=== PATIENT | male | born 1955 | race Caucasian/White ===

== ENCOUNTER 2022-08-02 11:26 | Emergency (ER) | payer MEDICARE, OTHER ==
[2022-08-02] MEDS ORDERED: SODIUM CHLORIDE 0.9% 1,000 ML IV STA (12:12)
--- NOTE | 2022-08-02 12:14 | ED Physician Documentation ---
History of Present Illness - Stated complaint Stated Complaint: BLADDER PX - Chief complaint Chief Complaint: Abd Pain - Additonal information Additional information: 66-year-old male presents emergency department for evaluation of hematuria. Currently undergoing chemotherapy for prostate cancer. He undergoes chemotherapy infusions every 3 weeks. He began having some mild hematuria about 3 weeks ago after his third cycle of chemotherapy. Initially it had abated before worsening over the last week. He now describes cola colored urine occasionally passing large clots. He denies renetta dysuria urgency or frequency. He feels like he fully empties the bladder. He did recently complete a course of Levaquin for bronchitis. Review of Systems Constitutional: denies: Fever, Chills Throat: reports: Reviewed and negative Cardiac: reports: Reviewed and negative Respiratory: reports: Reviewed and negative GI: reports: Reviewed and negative : reports: Hematuria Skin: reports: Reviewed and negative PD PAST MEDICAL HISTORY - Present Medications Home Medications: Ambulatory Orders Medication Instructions Recorded Confirmed Famotidine [Pepcid] 20 mg PO DAILY #20 tablet 06/06/22 Albuterol Sulf [Ventolin Hfa 1 - 2 puffs INH Q4HR PRN #1 each 07/24/22 Inhaler] Benzonatate [Tessalon] 200 mg PO QID PRN #20 cap 07/24/22 levoFLOXacin [Levofloxacin] 500 mg PO DAILY #6 tablet 07/24/22 - Allergies Allergies/Adverse Reactions: Allergies Allergy/AdvReac Type Severity Reaction Status Date / Time No Known Drug Allergies Allergy Verified 07/24/22 12:28 PD ED PE NORMAL - General General: Alert and oriented X 3, No acute distress, Well developed/nourished - HEENT HEENT: Atraumatic, Moist mucous membranes - Neck Neck: Supple, no meningeal sign, No adenopathy - Cardiac Cardiac: RRR, No murmur - Respiratory Respiratory: No respiratory distress, Clear bilaterally - Abdomen Abdomen: Normal bowel sounds, Soft, Non tender - Back Back: No CVA TTP, No spinal TTP - Derm Derm: Normal color, Warm and dry - Extremities Extremities: No deformity - Neuro Neuro: Alert and oriented X 3 Eye Opening: Spontaneous Motor: Obeys Commands Verbal: Oriented GCS Score: 15 Results - Vitals Vitals: Vital Signs - 24 hr 08/02/22 11:39 Temperature 37.0 C Heart Rate 119 H Respiratory 18 Rate Blood Pressure 125/74 O2 Saturation 99 Oxygen O2 Source Room air - Labs Labs: Laboratory Tests 08/02/22 08/02/22 08/02/22 11:57 12:14 12:14 WBC 9.3 RBC 4.40 L Hgb 13.3 L Hct 41.1 L MCV 93.4 MCH 30.2 MCHC 32.4 RDW 14.7 Plt Count 265 MPV 8.9 Neut # (Auto) 7.0 H Lymph # (Auto) 1.3 L [place] # (Auto) 0.8 Eos # (Auto) 0.1 Baso # (Auto) 0.0 Absolute Nucleated RBC 0.00 Nucleated RBC % 0.0 PT INR Sodium 141 Potassium 3.2 L Chloride 106 Carbon Dioxide 27 Anion Gap 8.0 BUN 45 H Creatinine 1.4 H Estimated GFR (MDRD) 51 L Glucose 104 H Calcium 9.2 Total Bilirubin 0.6 AST 16 ALT 16 Alkaline Phosphatase 55 Total Creatine Kinase 56 Total Protein 7.1 Albumin 4.0 Globulin 3.1 Albumin/Globulin Ratio 1.3 Lipase 44 Urine Color YELLOW Urine Clarity CLEAR Urine pH 5.5 Ur Specific [place] >=1.030 H Urine Protein TRACE Urine Glucose (UA) NEGATIVE Urine Ketones NEGATIVE Urine Occult Blood LARGE H Urine Nitrite NEGATIVE Urine Bilirubin NEGATIVE Urine Urobilinogen 0.2 (NORMAL) Ur Leukocyte Esterase NEGATIVE Urine RBC 6-10 H Urine WBC 0-3 Ur Squamous Epith Cells NONE SEEN Urine Bacteria Rare Ur Microscopic Review INDICATED Urine Culture Comments NOT INDICATED 08/02/22 12:28 WBC RBC Hgb Hct MCV MCH MCHC RDW Plt Count MPV Neut # (Auto) Lymph # (Auto) [place] # (Auto) Eos # (Auto) Baso # (Auto) Absolute Nucleated RBC Nucleated RBC % PT 11.6 INR 1.0 Sodium Potassium Chloride Carbon Dioxide Anion Gap BUN Creatinine Estimated GFR (MDRD) Glucose Calcium Total Bilirubin AST ALT Alkaline Phosphatase Total Creatine Kinase Total Protein Albumin Globulin Albumin/Globulin Ratio Lipase Urine Color Urine Clarity Urine pH Ur Specific [place] Urine Protein Urine Glucose (UA) Urine Ketones Urine Occult Blood Urine Nitrite Urine Bilirubin Urine Urobilinogen Ur Leukocyte Esterase Urine RBC Urine WBC Ur Squamous Epith Cells Urine Bacteria Ur Microscopic Review Urine Culture Comments - Rads (name of study) CT abd Radiology: Prelim report reviewed, Final report received (Posterior aspect of prostate with fluid collection measuring up to 8 cm. Causing mass-effect on bladder and adjacent rectum. May be related to complicated fluid or neoplasm. Nonobstructing left kidney stones are seen.) PD MEDICAL DECISION MAKING - ED course Complexity details: reviewed results, re-evaluated patient, considered different ial, d/w patient ED course: 66-year-old male presents emergency department for evaluation of worsening hematuria. Symptoms initially began 3 weeks ago. At that time he just completed his third cycle of chemotherapy For prostate cancer. Currently being treated at [facility]. On presentation he is alert and well-appearing. He has no fevers. His clinical exam is benign with no significant abdominal flank or CVA tenderness elicited. CBC showed no leukocytosis. He has a very healthy and preserved hemoglobin and hematocrit. Electrolytes do show modest dehydration with an elevated BUN and creatinine. He was given 1 L of fluid here in the emergency department. His urinalysis however showed renetta hematuria without secondary findings to suggest infection. Given the history of active chemotherapy for prostate cancer we did do a noncontrast CT secondary to the renal function, for further evaluation of the prostate mass. There is a large mass measuring 8 cm which does have adjacent mass-effect on both the bladder and the rectum. However the patient is not obstructed. No indication for antibiotics at this time. He is scheduled to see [facility] tomorrow to undergo his Fourth cycle of chemotherapy, Wednesday. I discussed with the patient that the hematuria could significantly worsening causing urinary obstruction. He has previously used [employer] in the past and is familiar with the signs for which he should return. Patient was given a printout of his CT and lab results to share with his oncology group tomorrow. Otherwise emergent return precautions were discussed. Departure - Departure Disposition: 01 Home, Self Care Clinical Impression: Prostate cancer Hematuria Qualifiers: Hematuria type: gross Qualified Code(s): R31.0 - Gross hematuria Condition: Stable Record reviewed to determine appropriate education?: Yes Comments: Darrius weiner are seen today in the emergency department for worsening hematuria, or blood in your urine, that began about 3 weeks ago after your third cycle of chemotherapy for prostate cancer. Here in the emergency department your urine does show gross amount of blood but there is nothing to indicate a urinary tract infection. We did check your CBC and found no worrisome white blood cell count elevation. You have a healthy and normal hemoglobin and hematocrit. Your blood chemistry does show some likely mild dehydration with an elevated BUN and creatinine. Here in the emergency department we did give you 1 L of IV fluids. I encourage you to discuss this with your oncology group. You would benefit from having your labs reevaluated this upcoming week. I encourage you to try and maintain hydration. A CT scan does show a large mass near your prostate that is causing both pressure on your bladder and rectum. However you are not obstructed meaning you are still able to adequately void and defecate. If at any point your symptoms change, you are unable to defecate or void your bladder you should return immediately to the ER. If at any point you develop fevers, have uncontrolled vomiting, worsening abdominal pain do not hesitate to return. I wish you well in your journey.
[2022-08-02 12:20] LABS: BASOPHILS % (AUTO) 0.4 %; EOSINOPHILS # (AUTO) 0.1 10^3/uL (0.0-0.7); EOSINOPHILS % (AUTO) 0.8 %; HCT - HEMATOCRIT 41.1 % (42.0-52.0); HGB - HEMOGLOBIN 13.3 g/dL (14.0-18.0); LYMPHOCYTES # (AUTO) 1.3 10^3/uL (1.5-3.5); LYMPHOCYTES % (AUTO) 14.1 %; MEAN CORPUSCULAR HEMOGLOBIN 30.2 pg (27.0-31.0); MEAN CORPUSCULAR HGB CONC 32.4 g/dL (32.0-36.0); MEAN CORPUSCULAR VOLUME 93.4 fL (80.0-94.0); MEAN PLATELET VOLUME 8.9 fL (7.4-11.4); MONOCYTES # (AUTO) 0.8 10^3/uL (0.0-1.0); MONOCYTES % (AUTO) 8.9 %; NEUTROPHILS % (AUTO) 74.6 %; PLT - PLATELET COUNT 265 10^3/uL (130-450); RED CELL DISTRIBUTION WIDTH 14.7 % (12.0-15.0); WHITE BLOOD COUNT 9.3 x10^3/uL (4.8-10.8)
[2022-08-02 12:23] LABS: BILIRUBIN,URINE NEGATIVE (NEGATIVE); CLARITY,URINE CLEAR (CLEAR); GLUCOSE, URINE (UA) NEGATIVE (NEGATIVE); KETONES,URINE (UA) NEGATIVE (NEGATIVE); LEUKOCYTE ESTERASE, URINE NEGATIVE (NEGATIVE); NITRITE,URINE NEGATIVE (NEGATIVE); OCCULT BLOOD,URINE LARGE (NEGATIVE); PH,URINE 5.5 PH (5.0-7.5); PROTEIN,URINE TRACE mg/dL (NEGATIVE); UROBILINOGEN,URINE 0.2 (NORMAL) E.U./dL (NORMAL)
[2022-08-02 12:34] LABS: ALBUMIN/GLOBULIN RATIO 1.3 (1.0-2.2); BILIRUBIN,TOTAL 0.6 mg/dL (0.2-1.0); CALCIUM 9.2 mg/dL (8.5-10.3); CREATININE 1.4 mg/dL (0.6-1.2); POTASSIUM 3.2 mmol/L (3.5-5.0); TOTAL PROTEIN 7.1 g/dL (6.7-8.2)
[2022-08-02 12:34] LABS: BACTERIA,URINE Rare /HPF (None Seen); SQUAMOUS EPITHELIAL CELL,UR NONE SEEN (<= Few); WBC,URINE 0-3 /HPF (0-3)
[2022-08-02 12:39] LABS: PT - PROTHROMBIN TIME 11.6 secs (9.9-12.6)
--- NOTE | 2022-08-02 13:05 | CT Report ---
PROCEDURE: Abdomen/Pelvis WO INDICATIONS: ITS.REASON: hx of prostate ca; hematuria TECHNIQUE: Noncontrast 5 mm thick sections acquired from the diaphragms to the symphysis. 5 mm coronal and sagi ttal reformats were then performed. For radiation dose reduction, the following was used: automated exposure control, adjustment of mA and/or kV according to patient size. COMPARISON: Correlation is made with chest plain film, 07/24/2022. FINDINGS: Image quality: Excellent. ABDOMEN: Lung bases: There is a mild amount of dependent atelectasis seen. Mild pulmonary cyst formation can b e seen. Heart size is normal. Solid organs: Liver and spleen are normal in size. Gallbladder wall does not appear thickened. P ancreas is normal in contours. No adrenal nodules. Kidneys are normal in size, without hydronephrosis. There is a water density cyst of the superior po le of the left kidney that measures 1.6 cm. Nonobstructing left-sided kidney stones are seen that annette sure up to 2 mm. Peritoneum and bowel: Unenhanced bowel loops demonstrate normal wall thickness and caliber. No free fluid or air. Nodes and vessels: No retroperitoneal or mesenteric adenopathy by size criteria. Aorta and inferior vena cava are normal in caliber. Miscellaneous: No ventral hernias. PELVIS: Genitourinary: Moderate generalized bladder wall thickening is seen. Along the posterior aspect of the prostate, there is low-density collection seen, with mass effect up on the bladder and the adjacent rectum that measures 7.8 x 7.2 cm in greatest axial dimension, with a craniocaudal extent of 6.8 cm, as on series 3 image 85 and on series 7 image 40. This measures 22 Ho unsfield units Miscellaneous: No inguinal hernias or adenopathy. Bones: No suspicious bony lesions. No vertebral body compression fractures. Generalized degenerati ve changes are seen, which are worst at L2-L3 and at L4-L5. IMPRESSION: Low-density collection seen along the posterior aspect of the prostate that measures up to 7.9 cm. As sociated mass effect can be seen upon the bladder and upon the adjacent rectum. The clinical signific ance of this is uncertain, although it may be related to complicated fluid or neoplasm. Nonobstructing left-sided kidney stones are seen that measure up to 2 mm. No hydronephrosis or ureter al stones can be seen. There is moderate generalized bladder wall thickening. Please consider lateral obstruction. Incidental note is made of: Water density left renal cyst Focal lower lumbar spine degenerative change Reviewed by: Ronny Larson MD on 08/02/2022 12:04 PM AKDT Approved by: Ronny Larson MD on 08/02/2022 12:04 PM AKDT Station ID: [id number]
[2022-08-02 13:54] VITALS: BP 120/68
== END 2022-08-02 13:54 | disposition home or self-care (01) ==
LOC: ED 11:26
DX: R31.0 Gross hematuria (principal); D49.59 Neoplasm of unspecified behavior of other genitourinary organ
CPT/HCPCS: 36415; 80053; 81001; 81003; 82550; 83690; 85025; 85610; 87086; 96360; 99284

== ENCOUNTER 2022-11-09 11:47 | Emergency (ER) | payer MEDICARE, OTHER, MEDICAID ==
[2022-11-09 12:17] LABS: BASOPHILS % (AUTO) 0.4 %; EOSINOPHILS # (AUTO) 0.2 10^3/uL (0.0-0.7); EOSINOPHILS % (AUTO) 1.9 %; HCT - HEMATOCRIT 38.4 % (42.0-52.0); HGB - HEMOGLOBIN 12.3 g/dL (14.0-18.0); LYMPHOCYTES # (AUTO) 0.7 10^3/uL (1.5-3.5); LYMPHOCYTES % (AUTO) 9.4 %; MEAN CORPUSCULAR HEMOGLOBIN 29.6 pg (27.0-31.0); MEAN CORPUSCULAR VOLUME 92.3 fL (80.0-94.0); MEAN PLATELET VOLUME 9.2 fL (7.4-11.4); MONOCYTES # (AUTO) 0.7 10^3/uL (0.0-1.0); MONOCYTES % (AUTO) 8.2 %; NEUTROPHILS # (AUTO) 6.3 10^3/uL (1.5-6.6); NEUTROPHILS % (AUTO) 79.7 %; PLT - PLATELET COUNT 212 10^3/uL (130-450); RED BLOOD COUNT 4.16 10^6/uL (4.70-6.10); RED CELL DISTRIBUTION WIDTH 15.5 % (12.0-15.0); WHITE BLOOD COUNT 7.9 x10^3/uL (4.8-10.8)
[2022-11-09] MEDS ORDERED: SODIUM CHLORIDE 0.9% 1,000 ML IV STA (12:24)
--- NOTE | 2022-11-09 12:24 | ED Physician Documentation ---
History of Present Illness - Stated complaint Stated Complaint: L SIDE PX - Chief complaint Chief Complaint: Abd Pain - Additonal information Additional information: History is provided by patient. He is a good and reliable historian. This very pleasant 66-year-old gentleman presents the emergency department for evaluation of left flank and left upper quadrant abdominal pain that began 3 days ago. He reports that he was squatting down to bean picker something and he felt what he describes as an air bubble that may have ruptured in his abdomen. He states he is never had such as sharp severe pain before. Over the ensuing days he finds anytime he coughs, sneezes or bears down he has pain. He has had no fevers, no black or bloody stools, no melena or hematochezia. He unfortunately does have a history of prostate cancer. He recently finished his seventh round of chemotherapy through [facility]. He tells me that unfortunately his PSA levels are rising. He is scheduled to meet with his oncologist the first week of November to discuss longer-term treatment options. In the short-term they are reducing his doses of prednisone and gabapentin. This patient appears generally well. He has no fevers hypotension or tachycard ia on exam Review of Systems Constitutional: denies: Fever, Chills Ears: reports: Reviewed and negative Nose: reports: Reviewed and negative Cardiac: reports: Reviewed and negative Respiratory: reports: Reviewed and negative GI: reports: Abdominal Pain. denies: Nausea, Vomiting, Constipation, Diarrhea, Hematemesis : reports: Reviewed and negative Skin: reports: Reviewed and negative Musculoskeletal: reports: Reviewed and negative PD PAST MEDICAL HISTORY - Past Medical History : Other - Present Medications Home Medications: Ambulatory Orders Medication Instructions Recorded Confirmed Chlorthalidone 25 mg ORAL DAILY 11/09/22 11/09/22 Finasteride [Proscar] 5 mg PO DAILY 11/09/22 11/09/22 Gabapentin [Neurontin] 100 mg PO HS 11/09/22 11/09/22 LORazepam [Ativan] 0.5 mg PO HS 11/09/22 11/09/22 Medroxyprogesterone Acetate 10 mg PO BID 11/09/22 11/09/22 [Provera] Potassium Chloride 20 meq PO DAILY 11/09/22 11/09/22 Tamsulosin HCl [Flomax] 0.4 mg ORAL DAILY 11/09/22 11/09/22 Trazodone HCl 100 mg PO HS 11/09/22 11/09/22 lisinopriL [Lisinopril] 20 mg ORAL DAILY 11/09/22 11/09/22 oxyCODONE [Roxicodone] 5 mg PO Q6HR PRN 11/09/22 11/09/22 - Allergies Allergies/Adverse Reactions: Allergies Allergy/AdvReac Type Severity Reaction Status Date / Time No Known Drug Allergies Allergy Verified 11/09/22 11:59 - Social History Does the pt smoke?: No Smoking Status: Never smoker PD ED PE NORMAL - General General: Alert and oriented X 3, No acute distress, Well developed/nourished - HEENT HEENT: Atraumatic, Moist mucous membranes - Neck Neck: Supple, no meningeal sign, No adenopathy - Cardiac Cardiac: RRR, No murmur - Respiratory Respiratory: No respiratory distress, Clear bilaterally - Abdomen Abdomen: Normal bowel sounds, Soft. No: Non tender (Mild tenderness elicited with palpation of the left upper quadrant and flank. No guarding or rebound.) - Back Back: No CVA TTP - Derm Derm: Normal color, Warm and dry - Extremities Extremities: No deformity - Neuro Neuro: Alert and oriented X 3, vault keeper 2-12 intact Eye Opening: Spontaneous Motor: Obeys Commands Verbal: Oriented GCS Score: 15 Results - Vitals Vitals: Vital Signs - 24 hr 11/09/22 11/09/22 11:53 13:05 Temperature 36.1 C L Heart Rate 89 63 Respiratory 24 18 Rate Blood Pressure 150/87 H 137/76 H O2 Saturation 98 99 Oxygen O2 Source Room air - Labs Labs: Laboratory Tests 11/09/22 11/09/22 11/09/22 12:11 12:11 13:41 WBC 7.9 RBC 4.16 L Hgb 12.3 L Hct 38.4 L MCV 92.3 MCH 29.6 MCHC 32.0 RDW 15.5 H Plt Count 212 MPV 9.2 Neut # (Auto) 6.3 Lymph # (Auto) 0.7 L [place] # (Auto) 0.7 Eos # (Auto) 0.2 Baso # (Auto) 0.0 Absolute Nucleated RBC 0.00 Nucleated RBC % 0.0 Sodium 136 Potassium 3.9 Chloride 101 Carbon Dioxide 27 Anion Gap 8.0 BUN 31 H Creatinine 1.3 H Estimated GFR (MDRD) 55 L Glucose 117 H Calcium 9.2 Total Bilirubin 0.5 AST 15 ALT 14 Alkaline Phosphatase 58 Total Protein 6.6 L Albumin 3.6 Globulin 3.0 Albumin/Globulin Ratio 1.2 Lipase 51 Urine Color YELLOW Urine Clarity CLEAR Urine pH 6.0 Ur Specific [place] 1.020 Urine Protein NEGATIVE Urine Glucose (UA) NEGATIVE Urine Ketones NEGATIVE Urine Occult Blood NEGATIVE Urine Nitrite NEGATIVE Urine Bilirubin NEGATIVE Urine Urobilinogen 0.2 (NORMAL) Ur Leukocyte Esterase NEGATIVE Ur Microscopic Review NOT INDICATED Urine Culture Comments NOT INDICATED - Rads (name of study) Abd/pelvis Radiology: Final report received (Large cyst in the midline pelvic cul-de-sac measuring 7.4 cm is unchanged in side. Could represent large seminal vesicle cyst. Bladder diverticulum or prostate cyst are felt to be less likely. No adenopathy.) PD Medical Decision Making - ED course Complexity details: reviewed results, re-evaluated patient, considered differential, d/w patient ED course: 66-year-old male who has a history of prostate cancer status post 7 rounds of chemotherapy but with rising PSAs presents to the emergency department for evaluation of 4 days left upper abdominal pain that occurred when he was squatting down to bean picker something from the floor. He felt an air bubble or something pop in his abdomen and it has been tender since especially when he coughs or sneezes. Here in the emergency department he appears remarkably well. He had no fevers or worrisome vital sign abnormalities. On exam there was some reproducible tenderness in the left upper abdomen but no obvious hernias. I did obtain a CBC, electrolytes and a urinalysis. I personally reviewed the results. There was no findings of leukocytosis or leukopenia. He has a normal hemoglobin. His electrolytes were also without worrisome findings. Urine showed no signs of infection or hematuria. While here in the emergency department the patient declined any analgesia reporting that he had taken his OxyContin prior to arrival. No prescriptions were given on discharge There was consideration taken for possible causes of the pain to include bowel obstruction versus solid organ injury or bowel perforation. We did do a CT of the abdomen that showed no acute abdominal process. As such I suspect he likely has a muscle strain. Patient is encouraged to follow very closely with his primary care provider and the oncologist. We also did discussed the usual emergent return precautions. Departure - Departure Disposition: 01 Home, Self Care Clinical Impression: Upper abdominal pain, History of prostate cancer Condition: Stable Record reviewed to determine appropriate education?: Yes Comments: Bradford weiner came to the emergency department today because you have had some left upper abdominal pain for the last number of days after you squatted to reach something on the ground. With your history of cancer and chemotherapy it was important that we obtain labs to make sure that we were not finding anything to suggest infection or a surgical perforation of your bowel. Today your CBC and electrolytes showed no worrisome findings. Your urine shows no signs of infection or hematuria. We did do a CT of the abdomen. I have given you those results. You do have the known lower pelvic mass which is essentially unchanged in size. However it did not show anything to suggest a bowel perforation or injury to your solid organs such as your gallbladder, liver or spleen. I suspect that you could have strained your muscle. This will sometimes take a week or 2 to heal. Please discuss this ED visit with your oncologist. As always return if you develop any fevers, have uncontrolled vomiting, black or bloody stools or feel that your symptoms are worsening in any way
[2022-11-09 12:28] LABS: ALBUMIN 3.6 g/dL (3.2-5.5); ALBUMIN/GLOBULIN RATIO 1.2 (1.0-2.2); BILIRUBIN,TOTAL 0.5 mg/dL (0.2-1.0); CALCIUM 9.2 mg/dL (8.5-10.3); CREATININE 1.3 mg/dL (0.6-1.2); POTASSIUM 3.9 mmol/L (3.5-5.0); TOTAL PROTEIN 6.6 g/dL (6.7-8.2)
[2022-11-09] MEDS ORDERED: iohexoL-300 100 ML VIAL ONE (12:55)
[2022-11-09 14:04] LABS: BILIRUBIN,URINE NEGATIVE (NEGATIVE); GLUCOSE, URINE (UA) NEGATIVE (NEGATIVE); KETONES,URINE (UA) NEGATIVE (NEGATIVE); LEUKOCYTE ESTERASE, URINE NEGATIVE (NEGATIVE); NITRITE,URINE NEGATIVE (NEGATIVE); OCCULT BLOOD,URINE NEGATIVE (NEGATIVE); PROTEIN,URINE NEGATIVE (NEGATIVE); UROBILINOGEN,URINE 0.2 (NORMAL) E.U./dL (NORMAL)
[2022-11-09 14:05] LABS: CLARITY,URINE CLEAR (CLEAR)
--- NOTE | 2022-11-09 14:45 | CT Report ---
PROCEDURE: ABDOMEN/PELVIS W INDICATIONS: LUQ abd pain; sharp; hx of prostate cancer CONTRAST: 100ml Omnipaque 300 TECHNIQUE: After the administration of intravenous contrast, 5 mm thick sections acquired from the diaphragms to the symphysis. 5 mm thick coronal and sagittal reformats were acquired. For radiation dose reducti on, the following was used: automated exposure control, adjustment of mA and/or kV according to marcelina ent size. COMPARISON: CT abdomen and pelvis without IV contrast 08/02/2022. FINDINGS: Image quality: Excellent. ABDOMEN: Lung bases: Left basilar atelectasis. No pleural effusion. Heart size is normal. Solid organs: Liver and spleen are normal in size and enhancement. Gallbladder is unremarkable. Bi liary system is non dilated. Pancreas enhances normally. No adrenal nodules. Kidneys demonstrate n ormal size and enhancement, without hydronephrosis. Small low-density cyst at the superior pole the l eft kidney measuring 1.6 cm. Peritoneum and bowel: Bowel loops demonstrate normal wall thickness and caliber. Diverticulosis. No rmal appendix. No free fluid or air. Nodes and vessels: No retroperitoneal or mesenteric adenopathy by size criteria. Aorta and inferior vena cava are normal in size. Miscellaneous: No ventral hernias. PELVIS: Genitourinary: Bladder is within normal limits. Large cystic structure in the pelvic cul-de-sac starla uring 7.4 cm, (), previously 7.5 cm; and measuring 6.9 cm, (sagittal images ), previously 7 c m. Not significant change in size. Soft tissue density at the anterior right aspect, (). Miscellaneous: No inguinal hernias or adenopathy. Bones: No suspicious bony lesions. DDD. No vertebral body compression fractures. IMPRESSION: 1. Large cyst in the midline pelvic cul-de-sac measuring 7.4 cm is unchanged in size. This could repr esent a large seminal vesicle cyst. Bladder diverticulum or prostatic cyst are felt to be less likely . MRI with IV contrast may be helpful for further evaluation. 2. No adenopathy. Reviewed by: Familia Gonzalez MD on 11/09/2022 2:44 PM PST Approved by: Familia Gonzalez MD on 11/09/2022 2:44 PM PST Station ID: [id number]
[2022-11-09 15:23] VITALS: BP 137/88
[2022-11-09] MEDS ORDERED: iohexoL-300 100 ML VIAL IVP ONE (15:32)
== END 2022-11-09 15:23 | disposition home or self-care (01) ==
LOC: ED 11:47
DX: R10.12 Left upper quadrant pain (principal); Z85.46 Personal history of malignant neoplasm of prostate
CPT/HCPCS: 36415; 74177; 80053; 81003; 83690; 85025; 99284; Q9967; 81001; 87086

== ENCOUNTER 2023-02-12 17:31 | Inpatient (IN) | payer MEDICARE, OTHER, MEDICAID ==
[2023-02-12] MEDS ORDERED: SODIUM CHLORIDE 0.9% 1,000 ML IV STA ×2 (17:54→20:16)
[2023-02-12 17:59] LABS: BASOPHILS % (AUTO) 0.6 %; EOSINOPHILS % (AUTO) 0.8 %; HCT - HEMATOCRIT 38.2 % (42.0-52.0); HGB - HEMOGLOBIN 11.9 g/dL (14.0-18.0); LYMPHOCYTES % (AUTO) 2.3 %; MEAN CORPUSCULAR HEMOGLOBIN 30.1 pg (27.0-31.0); MEAN CORPUSCULAR HGB CONC 31.2 g/dL (32.0-36.0); MEAN CORPUSCULAR VOLUME 96.5 fL (80.0-94.0); MEAN PLATELET VOLUME 9.1 fL (7.4-11.4); MONOCYTES % (AUTO) 3.7 %; NEUTROPHILS % (AUTO) 87.4 %; PLT - PLATELET COUNT 291 10^3/uL (130-450); RED BLOOD COUNT 3.96 10^6/uL (4.70-6.10); RED CELL DISTRIBUTION WIDTH 19.6 % (12.0-15.0); WHITE BLOOD COUNT 17.5 x10^3/uL (4.8-10.8)
[2023-02-12 18:01] LABS: ABNORMAL LYMPHS % (MANUAL) 0 %
--- OUTSIDE RECORDS SUMMARY | 2023-02-12 18:01 | EXTERNAL MEDICAL SUMMARY RPT | Continuity of Care Document ---
:1955 Author Organization [place] Address [address] [place] [address] Phone Care Team Providers Name Role Phone Mahogany Madrigal Unavailable Unavailable Allergies and Intolerances date description facility type (no date) No Known Drug Allergies [facility] (unkn own) Encounters No information. Functional Status No information. Immunizations No information. Medications date description facility 2022-12-18 00:00 Dexamethasone [facility] Problems date description facility 2022-12-18 00:00 Malignant neoplasm of prostate metastat ic to [facility] bone Procedures date description facility 2022-12-18 00:00 MRI of lumbar spine without contrast [facility] Results/Labs test date author facility value unit interpret ation Result panel 1 (unknown) (no date) (unknown) (unknown) (no value) (units (un known) unknown) (unknown) (no date) (unknown) (unknown) 12/18/22 (units (unkn own) unknown) (unknown) (no date) (unknown) (unknown) 10:42 12/18/22 (units (unknown) unknown) (unknown) (no date) (unknown) (unknown) 11:23 12/18/22 (units (unknown) unknown) (unknown) (no date) (unknown) (unknown) 11:23 (units (unkn own) unknown) (unknown) (no date) (unknown) (unknown) 11:30 12/18/22 (units (unknown) unknown) (unknown) (no date) (unknown) (unknown) 11:30 (units (unkn own) unknown) (unknown) (no date) (unknown) (unknown) Age/Sex: 66 / (units (unknown) M unknown) (unknown) (no date) (unknown) (unknown) Allergies (units (unk nown) unknown) (unknown) (no date) (unknown) (unknown) Allergy/AdvRea (units (unknown) c Type Severity unknown) Reaction Status Date / Time (unknown) (no date) (unknown) (unknown) Blood Pressure (units (unknown) 106/73 12/18/22 unknown) 10:42 (unknown) (no date) (unknown) (unknown) Blood Pressure (units (unknown) 106/73 122/76 unknown) (unknown) (no date) (unknown) (unknown) Blood Pressure (units (unknown) 110/52 L unknown) (unknown) (no date) (unknown) (unknown) Chief (units (unkn own) Complaint: Back unknown) Pain/Injury (unknown) (no date) (unknown) (unknown) Course (units (unkn own) unknown) (unknown) (no date) (unknown) (unknown) : (units (unkn own) 1955 unknown) Acct:[id number] (unknown) (no date) (unknown) (unknown) Date of (units (unkn own) Service: unknown) 12/18/22 (unknown) (no date) (unknown) (unknown) Departure (units (unk nown) unknown) (unknown) (no date) (unknown) (unknown) Discharge Plan (units (unknown) unknown) (unknown) (no date) (unknown) (unknown) ER Physician: (units (unknown) Mahogany Madrigal unknown) D.O. (unknown) (no date) (unknown) (unknown) Emergency (units (unk nown) Report unknown) (unknown) (no date) (unknown) (unknown) Exam (units (unkn own) unknown) (unknown) (no date) (unknown) (unknown) General (units (unkn own) unknown) (unknown) (no date) (unknown) (unknown) HPI - Back (units (un known) Pain/Injury unknown) (unknown) (no date) (unknown) (unknown) Initial Vital (units (unknown) Signs unknown) (unknown) (no date) (unknown) (unknown) Initial Vital (units (unknown) Signs: unknown) (unknown) (no date) (unknown) (unknown) [place] (units (unkn own) [facility] [address] unknown) [address] [place] [id number] (unknown) (no date) (unknown) (unknown) [id number] (units (un known) unknown) (unknown) (no date) (unknown) (unknown) Miscellaneous, (units (unknown) DoctorMD unknown) [Primary Care Provider] (unknown) (no date) (unknown) (unknown) No Known Drug (units (unknown) Allergies unknown) Allergy Verified 12/18/22 10:42 (unknown) (no date) (unknown) (unknown) Oxygen (units (unkn own) Delivery Method unknown) Room Air 12/18/22 10:42 (unknown) (no date) (unknown) (unknown) Oxygen (units (unkn own) Delivery Method unknown) Room Air (unknown) (no date) (unknown) (unknown) Oxygen (units (unkn own) Delivery Method unknown) (unknown) (no date) (unknown) (unknown) Patient (units (unkn own) History unknown) (unknown) (no date) (unknown) (unknown) Patient: (units (unkn own) Bradford Beebe unknown) [place]on MR#: (unknown) (no date) (unknown) (unknown) Pulse Oximetry (units (unknown) 93 unknown) (unknown) (no date) (unknown) (unknown) Pulse Oximetry (units (unknown) 96 12/18/22 unknown) 10:42 (unknown) (no date) (unknown) (unknown) Pulse Oximetry (units (unknown) 96 95 unknown) (unknown) (no date) (unknown) (unknown) Pulse Rate 83 (units (unknown) unknown) (unknown) (no date) (unknown) (unknown) Pulse Rate 96 (units (unknown) H 12/18/22 unknown) 10:42 (unknown) (no date) (unknown) (unknown) Pulse Rate 96 (units (unknown) H 93 H unknown) (unknown) (no date) (unknown) (unknown) Referrals: (units (un known) unknown) (unknown) (no date) (unknown) (unknown) Related Data (units ( unknown) unknown) (unknown) (no date) (unknown) (unknown) Respiratory (units (u nknown) Rate 15 unknown) 12/18/22 10:42 (unknown) (no date) (unknown) (unknown) Respiratory (units (u nknown) Rate 15 unknown) (unknown) (no date) (unknown) (unknown) Respiratory (units (u nknown) Rate unknown) (unknown) (no date) (unknown) (unknown) Signed By: (units (un known) unknown) (unknown) (no date) (unknown) (unknown) Smoking (units (unkn own) Status: Unknown unknown) if ever smoked (unknown) (no date) (unknown) (unknown) Social History (units (unknown) unknown) (unknown) (no date) (unknown) (unknown) Source: (units (unkn own) patient unknown) (unknown) (no date) (unknown) (unknown) Stated (units (unkn own) Complaint: Sent unknown) by Wolf Clark extreme pain pelvic region (unknown) (no date) (unknown) (unknown) Substance Use (units (unknown) Type: does not unknown) use (unknown) (no date) (unknown) (unknown) Temperature (units (u nknown) 96.7 F L unknown) 12/18/22 10:42 (unknown) (no date) (unknown) (unknown) Temperature (units (u nknown) 96.7 F L unknown) (unknown) (no date) (unknown) (unknown) Temperature (units (u nknown) unknown) (unknown) (no date) (unknown) (unknown) Time Seen by (units ( unknown) Provider: unknown) 12/18/22 11:31 (unknown) (no date) (unknown) (unknown) Vital Signs - (units (unknown) 8 hr unknown) (unknown) (no date) (unknown) (unknown) Vital Signs (units (u nknown) unknown) (unknown) (no date) (unknown) (unknown) Vital signs: (units ( unknown) unknown) (unknown) (no date) (unknown) (unknown) alcohol intake (units (unknown) frequency: unknown) holidays/specia l occasions only Result panel 2 (unknown) (no (unknown) (unknown) (no value) (units (unk nown) date) unknown) (unknown) (no (unknown) (unknown) 12/18/22 (units (unkno wn) date) unknown) (unknown) (no (unknown) (unknown) 1. 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 Multilevel (units (u nknown) date) degenerative disc unknown) disease and arthropathy results in effacement of (unknown) (no (unknown) (unknown) : [id number] (units (u nknown) date) unknown) (unknown) (no (unknown) (unknown) Accession Number: (units (unknown) date) [id number] unknown) (unknown) (no (unknown) (unknown) Age/Sex: 66 / M (units (unknown) date) Date of Service: unknown) (unknown) (no (unknown) (unknown) Alignment and (units ( unknown) date) Curvature: There unknown) is normal bony alignment. (unknown) (no (unknown) (unknown) [place], [place] (units ( unknown) date) [id number] unknown) (unknown) (no (unknown) (unknown) Approved by: Lane Deleonunits (unknown) date) Claude Rossi on unknown) 12/18/2022 at 12:53 (unknown) (no (unknown) (unknown) Bone Marrow: (units (u nknown) date) Multifocal unknown) metastatic marrow replacement noted in the L2 vertebral (unknown) (no (unknown) (unknown) COMPARISON: None. (units (unknown) date) unknown) (unknown) (no (unknown) (unknown) : 1955 (units (unknown) date) Acct:[id number] unknown) (unknown) (no (unknown) (unknown) FINDINGS: (units (unkn own) date) unknown) (unknown) (no (unknown) (unknown) IMPRESSION: (units (un known) date) unknown) (unknown) (no (unknown) (unknown) INDICATIONS: (units (u nknown) date) prostate CA mets unknown) to bone, weak legs incontinence (unknown) (no (unknown) (unknown) Image quality: (units (unknown) date) Excellent. unknown) (unknown) (no (unknown) (unknown) [facility] (units (unknown) date) unknown) (unknown) (no (unknown) (unknown) L1-L2: Normal (units ( unknown) date) appearance. unknown) (unknown) (no (unknown) (unknown) L2-L3: Disc space (units (unknown) date) narrowing with unknown) circumferential disc bulge results in mild (unknown) (no (unknown) (unknown) L3-L4: Disc space (units (unknown) date) narrowing with unknown) asymmetric right disc bulge results in (unknown) (no (unknown) (unknown) L4-5 (units (unkno wn) date) unknown) (unknown) (no (unknown) (unknown) L4-L5: Disc space (units (unknown) date) narrowing unknown) hypertrophic facet joints combined result in (unknown) (no (unknown) (unknown) L5-S1: Disc space (units (unknown) date) narrowing with unknown) disc bulge and hypertrophic facet joints (unknown) (no (unknown) (unknown) Loc: ED (units (unkno wn) date) unknown) (unknown) (no (unknown) (unknown) Magnetic (units (o wn) date) Resonance Report unknown) (unknown) (no (unknown) (unknown) Noncontrast (units (un known) date) sagittal T1 spin unknown) echo and T2 fast echo, sagittal STIR, and T2 fast (unknown) (no (unknown) (unknown) Ordering (units (unkno wn) date) Provider: unknown) Mahogany Madrigal D.O. (unknown) (no (unknown) (unknown) PROCEDURE: MR (units ( unknown) date) LUMBAR SPINE WO unknown) CON (unknown) (no (unknown) (unknown) Paraspinous Soft (units (unknown) date) Tissues: No unknown) paravertebral masses. (unknown) (no (unknown) (unknown) Patient: (units (unkno wn) date) Bradford Beebe unknown) Sheldon MR# (unknown) (no (unknown) (unknown) Procedure: MR (units ( unknown) date) lumbar spine wo unknown) con (unknown) (no (unknown) (unknown) Signed (units (unkno wn) date) unknown) (unknown) (no (unknown) (unknown) Spinal Cord: (units (u nknown) date) Conus medullaris unknown) terminates at the L1 level. Visualized cord (unknown) (no (unknown) (unknown) T12-L1: Normal (units (unknown) date) appearance. unknown) (unknown) (no (unknown) (unknown) TECHNIQUE: (units (unk nown) date) unknown) (unknown) (no (unknown) (unknown) body, (units (unkno wn) date) unknown) (unknown) (no (unknown) (unknown) central and (units (un known) date) unknown) (unknown) (no (unknown) (unknown) central or (units (unk nown) date) foraminal unknown) stenosis. (unknown) (no (unknown) (unknown) central stenosis (units (unknown) date) and effacement of unknown) the right lateral recess. (unknown) (no (unknown) (unknown) central stenosis. (units (unknown) date) Moderate to severe unknown) bilateral foraminal stenosis. (unknown) (no (unknown) (unknown) central stenosis. (units (unknown) date) unknown) (unknown) (no (unknown) (unknown) demonstrates (units (u nknown) date) unknown) (unknown) (no (unknown) (unknown) entire L4 (units (unkn own) date) vertebral body, as unknown) well as the sacrum and both iliac spines. At L4, (unknown) (no (unknown) (unknown) foraminal and no (units (unknown) date) left foraminal unknown) stenosis. Effacement of the right lateral (unknown) (no (unknown) (unknown) in mild (units (unkno wn) date) unknown) (unknown) (no (unknown) (unknown) involvement of (units (unknown) date) the ventral unknown) epidural space without pathologic fracture resulting (unknown) (no (unknown) (unknown) may be performed. (units (unknown) date) unknown) (unknown) (no (unknown) (unknown) mild central (units (u nknown) date) stenosis and unknown) effacement of the right lateral recess. (unknown) (no (unknown) (unknown) moderate (units (unkno wn) date) bilateral unknown) foraminal stenosis (unknown) (no (unknown) (unknown) moderate right (units (unknown) date) unknown) (unknown) (no (unknown) (unknown) moderate (units (unkno wn) date) unknown) (unknown) (no (unknown) (unknown) normal signal and (units (unknown) date) size. unknown) (unknown) (no (unknown) (unknown) present. No (units (un known) date) unknown) (unknown) (no (unknown) (unknown) recess but no (units ( unknown) date) unknown) (unknown) (no (unknown) (unknown) resulting in (units (u nknown) date) unknown) (unknown) (no (unknown) (unknown) right lateral (units (u nknown) date) recess at L3-4 and unknown) moderate to severe bilateral foraminal stenosis (unknown) (no (unknown) (unknown) spin echo (units (unkn own) date) unknown) (unknown) (no (unknown) (unknown) the (units (unkno wn) date) unknown) (unknown) (no (unknown) (unknown) there is (units (unkno wn) date) unknown) (unknown) (no (unknown) (unknown) through the (units (un known) date) lumbar spine. In unknown) cases with scoliosis, additional coronal T2 fast Result panel 3 (unknown) (no date) (unknown) (unknown) (no value) (units (un known) unknown) (unknown) (no date) (unknown) (unknown) 12/18/22 12:55 (units (unknown) unknown) (unknown) (no date) (unknown) (unknown) 12/18/22 (units (unkn own) unknown) (unknown) (no date) (unknown) (unknown) 10:42 12/18/22 (units (unknown) unknown) (unknown) (no date) (unknown) (unknown) 11:23 12/18/22 (units (unknown) unknown) (unknown) (no date) (unknown) (unknown) 11:23 (units (unkn own) unknown) (unknown) (no date) (unknown) (unknown) 11:30 12/18/22 (units (unknown) unknown) (unknown) (no date) (unknown) (unknown) 12:00 (units (unkn own) unknown) (unknown) (no date) (unknown) (unknown) 12:01 12/18/22 (units (unknown) unknown) (unknown) (no date) (unknown) (unknown) 12:30 12/18/22 (units (unknown) unknown) (unknown) (no date) (unknown) (unknown) 12:30 (units (unkn own) unknown) (unknown) (no date) (unknown) (unknown) 14:03 12/18/22 (units (unknown) unknown) (unknown) (no date) (unknown) (unknown) 14:04 (units (unkn own) unknown) (unknown) (no date) (unknown) (unknown) Age/Sex: 66 / (units (unknown) M unknown) (unknown) (no date) (unknown) (unknown) Allergies (units (unk nown) unknown) (unknown) (no date) (unknown) (unknown) Allergy/AdvRea (units (unknown) c Type Severity unknown) Reaction Status Date / Time (unknown) (no date) (unknown) (unknown) Blood Pressure (units (unknown) 106/73 12/18/22 unknown) 10:42 (unknown) (no date) (unknown) (unknown) Blood Pressure (units (unknown) 106/73 122/76 unknown) (unknown) (no date) (unknown) (unknown) Blood Pressure (units (unknown) 109/64 unknown) (unknown) (no date) (unknown) (unknown) Blood Pressure (units (unknown) 110/52 L unknown) (unknown) (no date) (unknown) (unknown) Blood Pressure (units (unknown) 113/56 L 99/58 unknown) L (unknown) (no date) (unknown) (unknown) Blood Pressure (units (unknown) unknown) (unknown) (no date) (unknown) (unknown) Chief (units (unkn own) Complaint: Back unknown) Pain/Injury (unknown) (no date) (unknown) (unknown) Course (units (unkn own) unknown) (unknown) (no date) (unknown) (unknown) : (units (unkn own) 1955 unknown) Acct:[id number] (unknown) (no date) (unknown) (unknown) Date of (units (unkn own) Service: unknown) 12/18/22 (unknown) (no date) (unknown) (unknown) Departure (units (unk nown) unknown) (unknown) (no date) (unknown) (unknown) Discharge Plan (units (unknown) unknown) (unknown) (no date) (unknown) (unknown) ED Orders (units (unk nown) unknown) (unknown) (no date) (unknown) (unknown) ER Physician: (units (unknown) Mahogany Madrigal unknown) D.O. (unknown) (no date) (unknown) (unknown) Emergency (units (unk nown) Report unknown) (unknown) (no date) (unknown) (unknown) Exam (units (unkn own) unknown) (unknown) (no date) (unknown) (unknown) General (units (unkn own) unknown) (unknown) (no date) (unknown) (unknown) HPI - Back (units (un known) Pain/Injury unknown) (unknown) (no date) (unknown) (unknown) HPI Narrative: (units (unknown) unknown) (unknown) (no date) (unknown) (unknown) History of (units (un known) Present Illness unknown) (unknown) (no date) (unknown) (unknown) Initial Vital (units (unknown) Signs unknown) (unknown) (no date) (unknown) (unknown) Initial Vital (units (unknown) Signs: unknown) (unknown) (no date) (unknown) (unknown) [place] (units (unkn own) [facility] [address] unknown) [address] [place] [id number] (unknown) (no date) (unknown) (unknown) [id number] (units (un known) unknown) (unknown) (no date) (unknown) (unknown) MR lumbar (units (unk nown) spine wo con unknown) Stat (unknown) (no date) (unknown) (unknown) Miscellaneous, (units (unknown) Doctor, unknown) [Primary Care Provider] (unknown) (no date) (unknown) (unknown) No Known Drug (units (unknown) Allergies unknown) Allergy Verified 12/18/22 10:42 (unknown) (no date) (unknown) (unknown) Ordered: (units (unkn own) unknown) (unknown) (no date) (unknown) (unknown) Orders (units (unkn own) unknown) (unknown) (no date) (unknown) (unknown) Oxygen (units (unkn own) Delivery Method unknown) Room Air 12/18/22 10:42 (unknown) (no date) (unknown) (unknown) Oxygen (units (unkn own) Delivery Method unknown) Room Air (unknown) (no date) (unknown) (unknown) Oxygen (units (unkn own) Delivery Method unknown) (unknown) (no date) (unknown) (unknown) Patient (units (unkn own) History unknown) (unknown) (no date) (unknown) (unknown) Patient is a (units ( unknown) 66-year-old unknown) male who presents with (unknown) (no date) (unknown) (unknown) Patient: (units (unkn own) Bradford Beebe unknown) [place]on MR#: (unknown) (no date) (unknown) (unknown) Pulse Oximetry (units (unknown) 93 92 unknown) (unknown) (no date) (unknown) (unknown) Pulse Oximetry (units (unknown) 93 96 94 unknown) (unknown) (no date) (unknown) (unknown) Pulse Oximetry (units (unknown) 94 unknown) (unknown) (no date) (unknown) (unknown) Pulse Oximetry (units (unknown) 96 12/18/22 unknown) 10:42 (unknown) (no date) (unknown) (unknown) Pulse Oximetry (units (unknown) 96 95 unknown) (unknown) (no date) (unknown) (unknown) Pulse Oximetry (units (unknown) unknown) (unknown) (no date) (unknown) (unknown) Pulse Rate 74 (units (unknown) 89 87 unknown) (unknown) (no date) (unknown) (unknown) Pulse Rate 74 (units (unknown) unknown) (unknown) (no date) (unknown) (unknown) Pulse Rate 83 (units (unknown) 74 unknown) (unknown) (no date) (unknown) (unknown) Pulse Rate 96 (units (unknown) H 12/18/22 unknown) 10:42 (unknown) (no date) (unknown) (unknown) Pulse Rate 96 (units (unknown) H 93 H unknown) (unknown) (no date) (unknown) (unknown) Pulse Rate (units (un known) unknown) (unknown) (no date) (unknown) (unknown) Referrals: (units (un known) unknown) (unknown) (no date) (unknown) (unknown) Related Data (units ( unknown) unknown) (unknown) (no date) (unknown) (unknown) Respiratory (units (u nknown) Rate 15 unknown) 12/18/22 10:42 (unknown) (no date) (unknown) (unknown) Respiratory (units (u nknown) Rate 15 unknown) (unknown) (no date) (unknown) (unknown) Respiratory (units (u nknown) Rate unknown) (unknown) (no date) (unknown) (unknown) Signed By: (units (un known) unknown) (unknown) (no date) (unknown) (unknown) Smoking (units (unkn own) Status: Unknown unknown) if ever smoked (unknown) (no date) (unknown) (unknown) Social History (units (unknown) unknown) (unknown) (no date) (unknown) (unknown) Source: (units (unkn own) patient unknown) (unknown) (no date) (unknown) (unknown) Stated (units (unkn own) Complaint: Sent unknown) by Wolf Clark extreme pain pelvic region (unknown) (no date) (unknown) (unknown) Substance Use (units (unknown) Type: does not unknown) use (unknown) (no date) (unknown) (unknown) Temperature (units (u nknown) 96.7 F L unknown) 12/18/22 10:42 (unknown) (no date) (unknown) (unknown) Temperature (units (u nknown) 96.7 F L unknown) (unknown) (no date) (unknown) (unknown) Temperature (units (u nknown) unknown) (unknown) (no date) (unknown) (unknown) Time Seen by (units ( unknown) Provider: unknown) 12/18/22 11:31 (unknown) (no date) (unknown) (unknown) Vital Signs - (units (unknown) 8 hr unknown) (unknown) (no date) (unknown) (unknown) Vital Signs (units (u nknown) unknown) (unknown) (no date) (unknown) (unknown) Vital signs: (units ( unknown) unknown) (unknown) (no date) (unknown) (unknown) alcohol intake (units (unknown) frequency: unknown) holidays/specia l occasions only Result panel 4 (unknown) (no (unknown) (unknown) (no value) (units (unk nown) date) unknown) (unknown) (no (unknown) (unknown) 12/18/22 12:55 (units (unknown) date) unknown) (unknown) (no (unknown) (unknown) 12/18/22 (units (unkno wn) date) unknown) (unknown) (no (unknown) (unknown) 10:42 12/18/22 (units (unknown) date) unknown) (unknown) (no (unknown) (unknown) 11:23 12/18/22 (units (unknown) date) unknown) (unknown) (no (unknown) (unknown) 11:23 (units (unkno wn) date) unknown) (unknown) (no (unknown) (unknown) 11:30 12/18/22 (units (unknown) date) unknown) (unknown) (no (unknown) (unknown) 12:00 (units (unkno wn) date) unknown) (unknown) (no (unknown) (unknown) 12:01 12/18/22 (units (unknown) date) unknown) (unknown) (no (unknown) (unknown) 12:30 12/18/22 (units (unknown) date) unknown) (unknown) (no (unknown) (unknown) 12:30 (units (unkno wn) date) unknown) (unknown) (no (unknown) (unknown) 14:03 12/18/22 (units (unknown) date) unknown) (unknown) (no (unknown) (unknown) 14:04 (units (unkno wn) date) unknown) (unknown) (no (unknown) (unknown) Age/Sex: 66 / M (units (unknown) date) unknown) (unknown) (no (unknown) (unknown) Allergies (units (unkn own) date) unknown) (unknown) (no (unknown) (unknown) Allergy/AdvReac (units (unknown) date) Type Severity unknown) Reaction Status Date / Time (unknown) (no (unknown) (unknown) Blood Pressure (units (unknown) date) 106/12/18/22 unknown) 10:42 (unknown) (no (unknown) (unknown) Blood Pressure (units (unknown) date) 122/76 unknown) (unknown) (no (unknown) (unknown) Blood Pressure (units (unknown) date) 109/64 unknown) (unknown) (no (unknown) (unknown) Blood Pressure (units (unknown) date) 110/52 L unknown) (unknown) (no (unknown) (unknown) Blood Pressure (units (unknown) date) 113/56 L 99/58 L unknown) (unknown) (no (unknown) (unknown) Blood Pressure (units (unknown) date) unknown) (unknown) (no (unknown) (unknown) Chief (units (unkno wn) date) Complaint: Back unknown) Pain/Injury (unknown) (no (unknown) (unknown) Course (units (unkno wn) date) unknown) (unknown) (no (unknown) (unknown) : 1955 (units (unknown) date) Acct:[id number] unknown) (unknown) (no (unknown) (unknown) Date of (units (unkno wn) date) Service: unknown) 12/18/22 (unknown) (no (unknown) (unknown) Departure (units (unkn own) date) unknown) (unknown) (no (unknown) (unknown) Discharge Plan (units (unknown) date) unknown) (unknown) (no (unknown) (unknown) ED Orders (units (unkn own) date) unknown) (unknown) (no (unknown) (unknown) ER Physician: (units ( unknown) date) Mahogany Madrigal unknown) D.O. (unknown) (no (unknown) (unknown) Emergency (units (unkn own) date) Report unknown) (unknown) (no (unknown) (unknown) Exam (units (unkno wn) date) unknown) (unknown) (no (unknown) (unknown) General (units (unkno wn) date) unknown) (unknown) (no (unknown) (unknown) HPI - Back (units (unk nown) date) Pain/Injury unknown) (unknown) (no (unknown) (unknown) HPI Narrative: (units (unknown) date) unknown) (unknown) (no (unknown) (unknown) History of (units (unk nown) date) Present Illness unknown) (unknown) (no (unknown) (unknown) Initial Vital (units ( unknown) date) Signs unknown) (unknown) (no (unknown) (unknown) Initial Vital (units ( unknown) date) Signs: unknown) (unknown) (no (unknown) (unknown) [facility] (units (unknown) date) [address]) [place] [address] (unknown) (no (unknown) (unknown) [id number] (units (unk nown) date) unknown) (unknown) (no (unknown) (unknown) MR lumbar spine (units (unknown) date) wo con Stat unknown) (unknown) (no (unknown) (unknown) Miscellaneous,D (units (unknown) date) MD shirley unknown) [Primary Care Provider] (unknown) (no (unknown) (unknown) No Known Drug (units ( unknown) date) Allergies unknown) Allergy Verified 12/18/22 10:42 (unknown) (no (unknown) (unknown) Ordered: (units (unkno wn) date) unknown) (unknown) (no (unknown) (unknown) Orders (units (unkno wn) date) unknown) (unknown) (no (unknown) (unknown) Oxygen Delivery (units (unknown) date) Method Room Air unknown) 12/18/22 10:42 (unknown) (no (unknown) (unknown) Oxygen Delivery (units (unknown) date) Method Room Air unknown) (unknown) (no (unknown) (unknown) Oxygen Delivery (units (unknown) date) Method unknown) (unknown) (no (unknown) (unknown) Patient History (units (unknown) date) unknown) (unknown) (no (unknown) (unknown) Patient is a (units (u nknown) date) 66-year-old male unknown) who has history of metastatic prostate cancer (unknown) (no (unknown) (unknown) Patient: (units (unkno wn) date) Bradford Beebe unknown) [place] MR#: (unknown) (no (unknown) (unknown) Pulse Oximetry (units (unknown) date) 93 92 unknown) (unknown) (no (unknown) (unknown) Pulse Oximetry (units (unknown) date) 93 96 94 unknown) (unknown) (no (unknown) (unknown) Pulse Oximetry (units (unknown) date) 94 unknown) (unknown) (no (unknown) (unknown) Pulse Oximetry (units (unknown) date) 96 12/18/22 unknown) 10:42 (unknown) (no (unknown) (unknown) Pulse Oximetry (units (unknown) date) 96 95 unknown) (unknown) (no (unknown) (unknown) Pulse Oximetry (units (unknown) date) unknown) (unknown) (no (unknown) (unknown) Pulse Rate 74 (units ( unknown) date) 89 87 unknown) (unknown) (no (unknown) (unknown) Pulse Rate 74 (units ( unknown) date) unknown) (unknown) (no (unknown) (unknown) Pulse Rate 83 (units ( unknown) date) 74 unknown) (unknown) (no (unknown) (unknown) Pulse Rate 96 H (units (unknown) date) 12/18/22 10:42 unknown) (unknown) (no (unknown) (unknown) Pulse Rate 96 H (units (unknown) date) 93 H unknown) (unknown) (no (unknown) (unknown) Pulse Rate (units (unk nown) date) unknown) (unknown) (no (unknown) (unknown) Referrals: (units (unk nown) date) unknown) (unknown) (no (unknown) (unknown) Related Data (units (u nknown) date) unknown) (unknown) (no (unknown) (unknown) Respiratory (units (un known) date) Rate 15 12/18/22 unknown) 10:42 (unknown) (no (unknown) (unknown) Respiratory (units (un known) date) Rate 15 unknown) (unknown) (no (unknown) (unknown) Respiratory (units (un known) date) Rate unknown) (unknown) (no (unknown) (unknown) Signed By: (units (unk nown) date) unknown) (unknown) (no (unknown) (unknown) Smoking Status: (units (unknown) date) Unknown if ever unknown) smoked (unknown) (no (unknown) (unknown) Social History (units (unknown) date) unknown) (unknown) (no (unknown) (unknown) Source: patient (units (unknown) date) unknown) (unknown) (no (unknown) (unknown) Stated (units (unkno wn) date) Complaint: Sent unknown) by Wolf Clark extreme pain pelvic region (unknown) (no (unknown) (unknown) Substance Use (units ( unknown) date) Type: does not unknown) use (unknown) (no (unknown) (unknown) Temperature (units (un known) date) 96.7 F L unknown) 12/18/22 10:42 (unknown) (no (unknown) (unknown) Temperature (units (un known) date) 96.7 F L unknown) (unknown) (no (unknown) (unknown) Temperature (units (un known) date) unknown) (unknown) (no (unknown) (unknown) Time Seen by (units (u nknown) date) Provider: unknown) 12/18/22 11:31 (unknown) (no (unknown) (unknown) Vital Signs - 8 (units (unknown) date) hr unknown) (unknown) (no (unknown) (unknown) Vital Signs (units (un known) date) unknown) (unknown) (no (unknown) (unknown) Vital signs: (units (u nknown) date) unknown) (unknown) (no (unknown) (unknown) alcohol intake (units (unknown) date) frequency: unknown) holidays/special occasions only (unknown) (no (unknown) (unknown) difficulty (units (unk nown) date) walking and unknown) weakness in his legs. He had stool incontinence last (unknown) (no (unknown) (unknown) is controlled (units ( unknown) date) with oxycodone unknown) (unknown) (no (unknown) (unknown) night but does (units (unknown) date) otherwise still unknown) have bowel and bladder control. No fevers. Pain (unknown) (no (unknown) (unknown) recently went (units ( unknown) date) to the lumbar unknown) spine. Over last 2 weeks he has progressive Result panel 5 (unknown) (no (unknown) (unknown) (no value) (units (unk nown) date) unknown) (unknown) (no (unknown) (unknown) 12/18/22 12:55 (units (unknown) date) unknown) (unknown) (no (unknown) (unknown) 12/18/22 (units (unkno wn) date) unknown) (unknown) (no (unknown) (unknown) 10:42 12/18/22 (units (unknown) date) unknown) (unknown) (no (unknown) (unknown) 11:23 12/18/22 (units (unknown) date) unknown) (unknown) (no (unknown) (unknown) 11:23 (units (unkno wn) date) unknown) (unknown) (no (unknown) (unknown) 11:30 12/18/22 (units (unknown) date) unknown) (unknown) (no (unknown) (unknown) 12:00 (units (unkno wn) date) unknown) (unknown) (no (unknown) (unknown) 12:01 12/18/22 (units (unknown) date) unknown) (unknown) (no (unknown) (unknown) 12:30 12/18/22 (units (unknown) date) unknown) (unknown) (no (unknown) (unknown) 12:30 (units (unkno wn) date) unknown) (unknown) (no (unknown) (unknown) 14:03 12/18/22 (units (unknown) date) unknown) (unknown) (no (unknown) (unknown) 14:04 (units (unkno wn) date) unknown) (unknown) (no (unknown) (unknown) ABDOMEN: Soft, (units (unknown) date) nontender. unknown) Normoactive bowel sounds all 4 quadrants. No (unknown) (no (unknown) (unknown) Age/Sex: 66 / M (units (unknown) date) unknown) (unknown) (no (unknown) (unknown) Allergies (units (unkn own) date) unknown) (unknown) (no (unknown) (unknown) Allergy/AdvReac (units (unknown) date) Type Severity unknown) Reaction Status Date / Time (unknown) (no (unknown) (unknown) Blood Pressure (units (unknown) date) 106/73 12/18/22 unknown) 10:42 (unknown) (no (unknown) (unknown) Blood Pressure (units (unknown) date) 106/73 122/76 unknown) (unknown) (no (unknown) (unknown) Blood Pressure (units (unknown) date) 109/64 unknown) (unknown) (no (unknown) (unknown) Blood Pressure (units (unknown) date) 110/52 L unknown) (unknown) (no (unknown) (unknown) Blood Pressure (units (unknown) date) 113/56 L 99/58 L unknown) (unknown) (no (unknown) (unknown) Blood Pressure (units (unknown) date) unknown) (unknown) (no (unknown) (unknown) CARDIOVASCULAR: (units (unknown) date) Regular rate and unknown) rhythm without murmurs, rubs or gallops. (unknown) (no (unknown) (unknown) Chief Complaint: (units (unknown) date) Back Pain/Injury unknown) (unknown) (no (unknown) (unknown) Course (units (unkno wn) date) unknown) (unknown) (no (unknown) (unknown) : 1955 (units (unknown) date) Acct:[id number] unknown) (unknown) (no (unknown) (unknown) Date of Service: (units (unknown) date) 12/18/22 unknown) (unknown) (no (unknown) (unknown) Departure (units (unkn own) date) unknown) (unknown) (no (unknown) (unknown) Discharge Plan (units (unknown) date) unknown) (unknown) (no (unknown) (unknown) ED Orders (units (unkn own) date) unknown) (unknown) (no (unknown) (unknown) ER Physician: (units ( unknown) date) Mahogany Madrigla unknown) D.O. (unknown) (no (unknown) (unknown) EXTREMITIES: (units (u nknown) date) Normal range of unknown) motion, no clubbing or edema. Neurovascularly (unknown) (no (unknown) (unknown) Emergency Report (units (unknown) date) unknown) (unknown) (no (unknown) (unknown) Exam (units (unkno wn) date) unknown) (unknown) (no (unknown) (unknown) GENERAL: and in (units (unknown) date) [no acute] unknown) distress. (unknown) (no (unknown) (unknown) : No CVA (units (unk nown) date) tenderness unknown) (unknown) (no (unknown) (unknown) General (units (unkno wn) date) unknown) (unknown) (no (unknown) (unknown) HEENT: Head (units (un known) date) atraumatic,EOMI, unknown) pupils reactive, face symmetric, [moist] mucous (unknown) (no (unknown) (unknown) HPI - Back (units (unk nown) date) Pain/Injury unknown) (unknown) (no (unknown) (unknown) HPI Narrative: (units (unknown) date) unknown) (unknown) (no (unknown) (unknown) History of (units (unk nown) date) Present Illness unknown) (unknown) (no (unknown) (unknown) Initial Vital (units ( unknown) date) Signs unknown) (unknown) (no (unknown) (unknown) Initial Vital (units ( unknown) date) Signs: unknown) (unknown) (no (unknown) (unknown) [facility] (units (unknown) date) [address] unknown) [place] [address] (unknown) (no (unknown) (unknown) [id number] (units (unk nown) date) unknown) (unknown) (no (unknown) (unknown) MR lumbar spine (units (unknown) date) wo con Stat unknown) (unknown) (no (unknown) (unknown) Miscellaneous,Doc (units (unknown) date) MD gianfranco [Primary unknown) Care Provider] (unknown) (no (unknown) (unknown) NEUROLOGICAL: (units ( unknown) date) Alert and oriented unknown) x4.Normal gait and speech. Cranial nerves II (unknown) (no (unknown) (unknown) No Known Drug (units ( unknown) date) Allergies Allergy unknown) Verified 12/18/22 10:42 (unknown) (no (unknown) (unknown) Ordered: (units (unkno wn) date) unknown) (unknown) (no (unknown) (unknown) Orders (units (unkno wn) date) unknown) (unknown) (no (unknown) (unknown) Oxygen Delivery (units (unknown) date) Method Room Air unknown) 12/18/22 10:42 (unknown) (no (unknown) (unknown) Oxygen Delivery (units (unknown) date) Method Room Air unknown) (unknown) (no (unknown) (unknown) Oxygen Delivery (units (unknown) date) Method unknown) (unknown) (no (unknown) (unknown) Patient History (units (unknown) date) unknown) (unknown) (no (unknown) (unknown) Patient is a (units (u nknown) date) 66-year-old male unknown) who has history of metastatic prostate cancer (unknown) (no (unknown) (unknown) Patient: (units (unkno wn) date) Bradford Beebe unknown) [place] MR#: (unknown) (no (unknown) (unknown) Pulse Oximetry 93 (units (unknown) date) 92 unknown) (unknown) (no (unknown) (unknown) Pulse Oximetry 93 (units (unknown) date) 96 94 unknown) (unknown) (no (unknown) (unknown) Pulse Oximetry 94 (units (unknown) date) unknown) (unknown) (no (unknown) (unknown) Pulse Oximetry 96 (units (unknown) date) 12/18/22 10:42 unknown) (unknown) (no (unknown) (unknown) Pulse Oximetry 96 (units (unknown) date) 95 unknown) (unknown) (no (unknown) (unknown) Pulse Oximetry (units (unknown) date) unknown) (unknown) (no (unknown) (unknown) Pulse Rate 74 89 (units (unknown) date) 87 unknown) (unknown) (no (unknown) (unknown) Pulse Rate 74 (units ( unknown) date) unknown) (unknown) (no (unknown) (unknown) Pulse Rate 83 74 (units (unknown) date) unknown) (unknown) (no (unknown) (unknown) Pulse Rate 96 H (units (unknown) date) 12/18/22 10:42 unknown) (unknown) (no (unknown) (unknown) Pulse Rate 96 H (units (unknown) date) 93 H unknown) (unknown) (no (unknown) (unknown) Pulse Rate (units (unk nown) date) unknown) (unknown) (no (unknown) (unknown) RESPIRATORY: (units (u nknown) date) Breath sounds unknown) equal bilaterally, no wheezes rales or rhonchi. (unknown) (no (unknown) (unknown) ROS Unobtainable: (units (unknown) date) All systems unknown) reviewed + are unremarkable except as noted in HPI (unknown) (no (unknown) (unknown) Referrals: (units (unk nown) date) unknown) (unknown) (no (unknown) (unknown) Related Data (units (u nknown) date) unknown) (unknown) (no (unknown) (unknown) Respiratory Rate (units (unknown) date) 15 12/18/22 10:42 unknown) (unknown) (no (unknown) (unknown) Respiratory Rate (units (unknown) date) 15 unknown) (unknown) (no (unknown) (unknown) Respiratory Rate (units (unknown) date) unknown) (unknown) (no (unknown) (unknown) Review of Systems (units (unknown) date) unknown) (unknown) (no (unknown) (unknown) SKIN: Warm, dry, (units (unknown) date) no laceration, no unknown) petechiae, no rashes or lesions. (unknown) (no (unknown) (unknown) Signed By: (units (unk nown) date) unknown) (unknown) (no (unknown) (unknown) Smoking Status: (units (unknown) date) Unknown if ever unknown) smoked (unknown) (no (unknown) (unknown) Social History (units (unknown) date) (Reviewed 12/18/22 unknown) @ 15:22 by Mahogany Madrigal DO) (unknown) (no (unknown) (unknown) Source: patient (units (unknown) date) unknown) (unknown) (no (unknown) (unknown) Stated Complaint: (units (unknown) date) Sent by Wolf Clark unknown) extreme pain pelvic region (unknown) (no (unknown) (unknown) Substance Use (units ( unknown) date) Type: does not use unknown) (unknown) (no (unknown) (unknown) Temperature 96.7 (units (unknown) date) F L 12/18/22 10:42 unknown) (unknown) (no (unknown) (unknown) Temperature 96.7 (units (unknown) date) F L unknown) (unknown) (no (unknown) (unknown) Temperature (units (un known) date) unknown) (unknown) (no (unknown) (unknown) Time Seen by (units (u nknown) date) Provider: 12/18/22 unknown) 11:31 (unknown) (no (unknown) (unknown) Vital Signs - 8 (units (unknown) date) hr unknown) (unknown) (no (unknown) (unknown) Vital Signs (units (un known) date) unknown) (unknown) (no (unknown) (unknown) Vital signs: (units (u nknown) date) unknown) (unknown) (no (unknown) (unknown) [EARS:] [Tympanic (units (unknown) date) membranes unknown) visualized, no erythema or bulging, no hemotympanum] (unknown) (no (unknown) (unknown) [PHARYNX:] [No (units (unknown) date) erythema, no unknown) tonsillar exudate, no cervical lymphadenopathy] (unknown) (no (unknown) (unknown) [RECTAL:] (units (unkn own) date) [Hemoccult-positiv unknown) e, no hemorrhoids, nontender] (unknown) (no (unknown) (unknown) alcohol intake (units (unknown) date) frequency: unknown) holidays/special occasions only (unknown) (no (unknown) (unknown) and below (units (unkn own) date) unknown) (unknown) (no (unknown) (unknown) bilaterally, no (units (unknown) date) visual changes, no unknown) facial droop] (unknown) (no (unknown) (unknown) difficulty (units (unk nown) date) walking and unknown) weakness in his legs. He had stool incontinence last (unknown) (no (unknown) (unknown) equal (units (unkno wn) date) bilaterally, no unknown) dysarthria or aphasia, sensation in tact to soft touch (unknown) (no (unknown) (unknown) guarding or (units (un known) date) rebound. unknown) (unknown) (no (unknown) (unknown) intact (units (unkno wn) date) unknown) (unknown) (no (unknown) (unknown) is controlled (units ( unknown) date) with oxycodone unknown) (unknown) (no (unknown) (unknown) membranes (units (unkn own) date) unknown) (unknown) (no (unknown) (unknown) night but does (units (unknown) date) otherwise still unknown) have bowel and bladder control. No fevers. Pain (unknown) (no (unknown) (unknown) recently went to (units (unknown) date) the lumbar spine. unknown) Over last 2 weeks he has progressive (unknown) (no (unknown) (unknown) through XII (units (un known) date) grossly intact. unknown) [Good [id number], good [id number], strength Result panel 6 (unknown) (no (unknown) (unknown) (no value) (units (unk nown) date) unknown) (unknown) (no (unknown) (unknown) *Continue to take (units (unknown) date) medications as unknown) directed (unknown) (no (unknown) (unknown) *Follow up with (units (unknown) date) your primary care unknown) provider in 2-3 days or call [phone] (unknown) (no (unknown) (unknown) *Return to ER if (units (unknown) date) you should have unknown) increasing leg weakness loss of urine or stool (unknown) (no (unknown) (unknown) *What to do: At (units (unknown) date) this time you do unknown) have metastatic disease to her spine but not (unknown) (no (unknown) (unknown) *You have been (units (unknown) date) diagnosed with unknown) back pain (unknown) (no (unknown) (unknown) 12/18/22 12:55 (units (unknown) date) unknown) (unknown) (no (unknown) (unknown) 12/18/22 (units (unkno wn) date) unknown) (unknown) (no (unknown) (unknown) 1. 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 (unknown) (no (unknown) (unknown) 10:42 12/18/22 (units (unknown) date) unknown) (unknown) (no (unknown) (unknown) 11:23 12/18/22 (units (unknown) date) unknown) (unknown) (no (unknown) (unknown) 11:23 (units (unkno wn) date) unknown) (unknown) (no (unknown) (unknown) 11:30 12/18/22 (units (unknown) date) unknown) (unknown) (no (unknown) (unknown) 12:00 (units (unkno wn) date) unknown) (unknown) (no (unknown) (unknown) 12:01 12/18/22 (units (unknown) date) unknown) (unknown) (no (unknown) (unknown) 12:30 12/18/22 (units (unknown) date) unknown) (unknown) (no (unknown) (unknown) 12:30 (units (unkno wn) date) unknown) (unknown) (no (unknown) (unknown) 14:03 12/18/22 (units (unknown) date) unknown) (unknown) (no (unknown) (unknown) 14:04 (units (unkno wn) date) unknown) (unknown) (no (unknown) (unknown) 2. Multilevel (units (u nknown) date) degenerative disc unknown) disease and arthropathy results in effacement of (unknown) (no (unknown) (unknown) ? (units (unkno wn) date) unknown) (unknown) (no (unknown) (unknown) ABDOMEN: Soft, (units (unknown) date) nontender. unknown) Normoactive bowel sounds all 4 quadrants. No (unknown) (no (unknown) (unknown) Activity (units (unkno wn) date) Restrictions/Addit unknown) ional Instructions: (unknown) (no (unknown) (unknown) Age/Sex: 66 / M (units (unknown) date) unknown) (unknown) (no (unknown) (unknown) Alignment and (units ( unknown) date) Curvature:? There unknown) is normal bony alignment.? (unknown) (no (unknown) (unknown) Allergies (units (unkn own) date) unknown) (unknown) (no (unknown) (unknown) Allergy/AdvReac (units (unknown) date) Type Severity unknown) Reaction Status Date / Time (unknown) (no (unknown) (unknown) Approved by: Lane (units (unknown) date) Claude Rossi on unknown) 12/18/2022 at 12:53? (unknown) (no (unknown) (unknown) BACK: No (units (unkno wn) date) vertebral unknown) tenderness (unknown) (no (unknown) (unknown) Blood Pressure (units (unknown) date) 10673 12/18/22 unknown) 10:42 (unknown) (no (unknown) (unknown) Blood Pressure (units (unknown) date) 122/76 unknown) (unknown) (no (unknown) (unknown) Blood Pressure (units (unknown) date) 109/64 unknown) (unknown) (no (unknown) (unknown) Blood Pressure (units (unknown) date) 110/52 L unknown) (unknown) (no (unknown) (unknown) Blood Pressure (units (unknown) date) 113/56 L 99/58 L unknown) (unknown) (no (unknown) (unknown) Blood Pressure (units (unknown) date) unknown) (unknown) (no (unknown) (unknown) Bone Marrow:? (units (u nknown) date) Multifocal unknown) metastatic marrow replacement noted in the L2 vertebral (unknown) (no (unknown) (unknown) CARDIOVASCULAR: (units (unknown) date) Regular rate and unknown) rhythm without murmurs, rubs or gallops. (unknown) (no (unknown) (unknown) COMPARISON:? (units (u nknown) date) None. unknown) (unknown) (no (unknown) (unknown) Chief Complaint: (units (unknown) date) Back Pain/Injury unknown) (unknown) (no (unknown) (unknown) Clinical (units (unkno wn) date) Impression: unknown) (unknown) (no (unknown) (unknown) Course (units (unkno wn) date) unknown) (unknown) (no (unknown) (unknown) : 1955 (units (unknown) date) Acct:[id number] unknown) (unknown) (no (unknown) (unknown) Date of Service: (units (unknown) date) 12/18/22 unknown) (unknown) (no (unknown) (unknown) Departure (units (unkn own) date) unknown) (unknown) (no (unknown) (unknown) Dexamethasone 4 (units (unknown) date) mg twice a day day unknown) until further instructions (unknown) (no (unknown) (unknown) Discharge Plan (units (unknown) date) unknown) (unknown) (no (unknown) (unknown) ED Orders (units (unkn own) date) unknown) (unknown) (no (unknown) (unknown) ER Physician: (units ( unknown) date) Mahogany Madrigal unknown) D.O. (unknown) (no (unknown) (unknown) EXTREMITIES: (units (u nknown) date) Normal range of unknown) motion, no clubbing or edema. Neurovascularly (unknown) (no (unknown) (unknown) Emergency Report (units (unknown) date) unknown) (unknown) (no (unknown) (unknown) Exam (units (unkno wn) date) unknown) (unknown) (no (unknown) (unknown) FINDINGS:? (units (unk nown) date) unknown) (unknown) (no (unknown) (unknown) Follow-up with (units (unknown) date) oncology on Wednesday unknown) as scheduled (unknown) (no (unknown) (unknown) GENERAL: Alert (units (unknown) date) very pleasant unknown) 66-year-old male and in no acute distress. (unknown) (no (unknown) (unknown) General (units (unkno wn) date) unknown) (unknown) (no (unknown) (unknown) HEENT: Head (units (un known) date) atraumatic,EOMI, unknown) pupils reactive, face symmetric, moist mucous (unknown) (no (unknown) (unknown) HPI - Back (units (unk nown) date) Pain/Injury unknown) (unknown) (no (unknown) (unknown) HPI Narrative: (units (unknown) date) unknown) (unknown) (no (unknown) (unknown) History of (units (unk nown) date) Present Illness unknown) (unknown) (no (unknown) (unknown) IMPRESSION:? (units (u nknown) date) unknown) (unknown) (no (unknown) (unknown) INDICATIONS:? (units ( unknown) date) prostate CA mets unknown) to bone, weak legs incontinence (unknown) (no (unknown) (unknown) Image quality:? (units (unknown) date) Excellent.? unknown) (unknown) (no (unknown) (unknown) Imaging Data (units (u nknown) date) unknown) (unknown) (no (unknown) (unknown) Initial Vital (units ( unknown) date) Signs unknown) (unknown) (no (unknown) (unknown) Initial Vital (units ( unknown) date) Signs: unknown) (unknown) (no (unknown) (unknown) Instructions: DI (units (unknown) date) for Low Back Pain unknown) (unknown) (no (unknown) (unknown) [facility] (units (unknown) date) [address] [place] [address] unknown) [place] [address] (unknown) (no (unknown) (unknown) L1-L2:? Normal (units (unknown) date) appearance.? unknown) (unknown) (no (unknown) (unknown) L2-L3:? Disc (units (u nknown) date) space narrowing unknown) with circumferential disc bulge results in mild (unknown) (no (unknown) (unknown) L3-L4:? Disc (units (u nknown) date) space narrowing unknown) with asymmetric right disc bulge results in (unknown) (no (unknown) (unknown) L4-5 (units (unkno wn) date) unknown) (unknown) (no (unknown) (unknown) L4-L5:? Disc (units (u nknown) date) space narrowing unknown) hypertrophic facet joints combined result in (unknown) (no (unknown) (unknown) L5-S1:? Disc (units (u nknown) date) space narrowing unknown) with disc bulge and hypertrophic facet joints (unknown) (no (unknown) (unknown) [id number] (units (unk nown) date) unknown) (unknown) (no (unknown) (unknown) MDM - Back (units (unk nown) date) Pain/Injury unknown) (unknown) (no (unknown) (unknown) MR lumbar spine (units (unknown) date) wo con Stat unknown) (unknown) (no (unknown) (unknown) MR lumbar: (units (unk nown) date) unknown) (unknown) (no (unknown) (unknown) Miscellaneous,Doc (units (unknown) date) MD gianfranco [Primary unknown) Care Provider] (unknown) (no (unknown) (unknown) NEUROLOGICAL: (units ( unknown) date) Alert and oriented unknown) x4.Normal gait and speech. (unknown) (no (unknown) (unknown) No Known Drug (units ( unknown) date) Allergies Allergy unknown) Verified 12/18/22 10:42 (unknown) (no (unknown) (unknown) Noncontrast (units (un known) date) sagittal T1 spin unknown) echo and T2 fast echo, sagittal STIR, and T2 fast (unknown) (no (unknown) (unknown) Ordered: (units (unkno wn) date) unknown) (unknown) (no (unknown) (unknown) Orders (units (unkno wn) date) unknown) (unknown) (no (unknown) (unknown) Oxygen Delivery (units (unknown) date) Method Room Air unknown) 12/18/22 10:42 (unknown) (no (unknown) (unknown) Oxygen Delivery (units (unknown) date) Method Room Air unknown) (unknown) (no (unknown) (unknown) Oxygen Delivery (units (unknown) date) Method unknown) (unknown) (no (unknown) (unknown) PROCEDURE:? MR (units (unknown) date) LUMBAR SPINE WO unknown) CON (unknown) (no (unknown) (unknown) Paraspinous Soft (units (unknown) date) Tissues:? No unknown) paravertebral masses.? 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 unknown) (unknown) (no (unknown) (unknown) Pulse Oximetry 93 (units (unknown) date) 92 unknown) (unknown) (no (unknown) (unknown) Pulse Oximetry 93 (units (unknown) date) 96 94 unknown) (unknown) (no (unknown) (unknown) Pulse Oximetry 94 (units (unknown) date) unknown) (unknown) (no (unknown) (unknown) Pulse Oximetry 96 (units (unknown) date) 12/18/22 10:42 unknown) (unknown) (no (unknown) (unknown) Pulse Oximetry 96 (units (unknown) date) 95 unknown) (unknown) (no (unknown) (unknown) Pulse Oximetry (units (unknown) date) unknown) (unknown) (no (unknown) (unknown) Pulse Rate 74 89 (units (unknown) date) 87 unknown) (unknown) (no (unknown) (unknown) Pulse Rate 74 (units ( unknown) date) unknown) (unknown) (no (unknown) (unknown) Pulse Rate 83 74 (units (unknown) date) unknown) (unknown) (no (unknown) (unknown) Pulse Rate 96 H (units (unknown) date) 12/18/22 10:42 unknown) (unknown) (no (unknown) (unknown) Pulse Rate 96 H (units (unknown) date) 93 H unknown) (unknown) (no (unknown) (unknown) Pulse Rate (units (unk nown) date) unknown) (unknown) (no (unknown) (unknown) RESPIRATORY: (units (u nknown) date) Breath sounds unknown) equal bilaterally, no wheezes rales or rhonchi. (unknown) (no (unknown) (unknown) ROS Unobtainable: (units (unknown) date) All systems unknown) reviewed + are unremarkable except as noted in HPI (unknown) (no (unknown) (unknown) Radiologist's (units ( unknown) date) Impression: unknown) (unknown) (no (unknown) (unknown) Referrals: (units (unk nown) date) unknown) (unknown) (no (unknown) (unknown) Related Data (units (u nknown) date) unknown) (unknown) (no (unknown) (unknown) Respiratory Rate (units (unknown) date) 15 12/18/22 10:42 unknown) (unknown) (no (unknown) (unknown) Respiratory Rate (units (unknown) date) 15 unknown) (unknown) (no (unknown) (unknown) Respiratory Rate (units (unknown) date) unknown) (unknown) (no (unknown) (unknown) Review of Systems (units (unknown) date) unknown) (unknown) (no (unknown) (unknown) SKIN: Warm, dry, (units (unknown) date) no laceration, no unknown) petechiae, no rashes or lesions. (unknown) (no (unknown) (unknown) Signed By: (units (unk nown) date) unknown) (unknown) (no (unknown) (unknown) Smoking Status: (units (unknown) date) Unknown if ever unknown) smoked (unknown) (no (unknown) (unknown) Social History (units (unknown) date) (Reviewed 12/18/22 unknown) @ 15:22 by Mahogany Madrigal DO) (unknown) (no (unknown) (unknown) Source: patient (units (unknown) date) unknown) (unknown) (no (unknown) (unknown) Spinal Cord:? (units ( unknown) date) Conus medullaris unknown) terminates at the L1 level.? Visualized cord (unknown) (no (unknown) (unknown) Stand Alone (units (un known) date) Forms: Patient unknown) Portal/API (unknown) (no (unknown) (unknown) Stated Complaint: (units (unknown) date) Sent by Wolf Clark unknown) extreme pain pelvic region (unknown) (no (unknown) (unknown) Substance Use (units ( unknown) date) Type: does not use unknown) (unknown) (no (unknown) (unknown) T12-L1:? Normal (units (unknown) date) appearance.? unknown) (unknown) (no (unknown) (unknown) TECHNIQUE:? (units (un known) date) unknown) (unknown) (no (unknown) (unknown) Temperature 96.7 (units (unknown) date) F L 12/18/22 10:42 unknown) (unknown) (no (unknown) (unknown) Temperature 96.7 (units (unknown) date) F L unknown) (unknown) (no (unknown) (unknown) Temperature (units (un known) date) unknown) (unknown) (no (unknown) (unknown) Time Seen by (units (u nknown) date) Provider: 12/18/22 unknown) 11:31 (unknown) (no (unknown) (unknown) Vital Signs - 8 (units (unknown) date) hr unknown) (unknown) (no (unknown) (unknown) Vital Signs (units (un known) date) unknown) (unknown) (no (unknown) (unknown) Vital signs: (units (u nknown) date) unknown) (unknown) (no (unknown) (unknown) alcohol intake (units (unknown) date) frequency: unknown) holidays/special occasions only (unknown) (no (unknown) (unknown) and below (units (unkn own) date) unknown) (unknown) (no (unknown) (unknown) body, (units (unkno wn) date) unknown) (unknown) (no (unknown) (unknown) causing (units (unkno wn) date) compression your unknown) cord. (unknown) (no (unknown) (unknown) central and (units (un known) date) unknown) (unknown) (no (unknown) (unknown) central or (units (unk nown) date) foraminal unknown) stenosis. (unknown) (no (unknown) (unknown) central stenosis (units (unknown) date) and effacement of unknown) the right lateral recess. (unknown) (no (unknown) (unknown) central stenosis. (units (unknown) date) unknown) (unknown) (no (unknown) (unknown) central (units (unkno wn) date) stenosis.? unknown) Moderate to severe bilateral foraminal stenosis. (unknown) (no (unknown) (unknown) demonstrates (units (u nknown) date) unknown) (unknown) (no (unknown) (unknown) difficulty (units (unk nown) date) walking and unknown) weakness in his legs. He had stool incontinence last (unknown) (no (unknown) (unknown) entire L4 (units (unkn own) date) vertebral body, as unknown) well as the sacrum and both iliac spines.? At L4, (unknown) (no (unknown) (unknown) foraminal and no (units (unknown) date) left foraminal unknown) stenosis.? Effacement of the right lateral (unknown) (no (unknown) (unknown) guarding or (units (un known) date) rebound. unknown) (unknown) (no (unknown) (unknown) in mild (units (unkno wn) date) unknown) (unknown) (no (unknown) (unknown) intact (units (unkno wn) date) unknown) (unknown) (no (unknown) (unknown) involvement of (units (unknown) date) the ventral unknown) epidural space without pathologic fracture resulting (unknown) (no (unknown) (unknown) is controlled (units ( unknown) date) with oxycodone unknown) (unknown) (no (unknown) (unknown) may be (units (unkno wn) date) performed.? unknown) (unknown) (no (unknown) (unknown) membranes (units (unkn own) date) unknown) (unknown) (no (unknown) (unknown) mild central (units (u nknown) date) stenosis and unknown) effacement of the right lateral recess. (unknown) (no (unknown) (unknown) moderate (units (unkno wn) date) bilateral unknown) foraminal stenosis (unknown) (no (unknown) (unknown) moderate right (units (unknown) date) unknown) (unknown) (no (unknown) (unknown) moderate (units (unkno wn) date) unknown) (unknown) (no (unknown) (unknown) night but does (units (unknown) date) otherwise still unknown) have bowel and bladder control. No fevers. Pain (unknown) (no (unknown) (unknown) normal signal and (units (unknown) date) size.? unknown) (unknown) (no (unknown) (unknown) or any new, (units (un known) date) worsening or unknown) concerning symptoms (unknown) (no (unknown) (unknown) present.? No (units (u nknown) date) unknown) (unknown) (no (unknown) (unknown) recently went to (units (unknown) date) the lumbar spine. unknown) Over last 2 weeks he has progressive (unknown) (no (unknown) (unknown) recess but no (units ( unknown) date) unknown) (unknown) (no (unknown) (unknown) resulting in (units (u nknown) date) unknown) (unknown) (no (unknown) (unknown) right lateral (units (u nknown) date) recess at L3-4 and unknown) moderate to severe bilateral foraminal stenosis (unknown) (no (unknown) (unknown) spin echo (units (unkn own) date) unknown) (unknown) (no (unknown) (unknown) the (units (unkno wn) date) unknown) (unknown) (no (unknown) (unknown) there is (units (unkno wn) date) unknown) (unknown) (no (unknown) (unknown) through the (units (un known) date) lumbar spine.? In unknown) cases with scoliosis, additional coronal T2 fast Result panel 7 (unknown) (no (unknown) (unknown) (no value) (units (unk nown) date) unknown) (unknown) (no (unknown) (unknown) *Continue to take (units (unknown) date) medications as unknown) directed (unknown) (no (unknown) (unknown) *Follow up with (units (unknown) date) your primary care unknown) provider in 2-3 days or call [phone] (unknown) (no (unknown) (unknown) *Return to ER if (units (unknown) date) you should have unknown) increasing leg weakness loss of urine or stool (unknown) (no (unknown) (unknown) *What to do: At (units (unknown) date) this time you do unknown) have metastatic disease to her spine but not (unknown) (no (unknown) (unknown) *You have been (units (unknown) date) diagnosed with unknown) back pain (unknown) (no (unknown) (unknown) 12/18/22 12:55 (units (unknown) date) unknown) (unknown) (no (unknown) (unknown) 12/18/22 (units (unkno wn) date) unknown) (unknown) (no (unknown) (unknown) 1. 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 (unknown) (no (unknown) (unknown) 10:42 12/18/22 (units (unknown) date) unknown) (unknown) (no (unknown) (unknown) 11:23 12/18/22 (units (unknown) date) unknown) (unknown) (no (unknown) (unknown) 11:23 (units (unkno wn) date) unknown) (unknown) (no (unknown) (unknown) 11:30 12/18/22 (units (unknown) date) unknown) (unknown) (no (unknown) (unknown) 12:00 (units (unkno wn) date) unknown) (unknown) (no (unknown) (unknown) 12:01 12/18/22 (units (unknown) date) unknown) (unknown) (no (unknown) (unknown) 12:30 12/18/22 (units (unknown) date) unknown) (unknown) (no (unknown) (unknown) 12:30 (units (unkno wn) date) unknown) (unknown) (no (unknown) (unknown) 14:03 12/18/22 (units (unknown) date) unknown) (unknown) (no (unknown) (unknown) 14:04 (units (unkno wn) date) unknown) (unknown) (no (unknown) (unknown) 2. Multilevel (units (u nknown) date) degenerative disc unknown) disease and arthropathy results in effacement of (unknown) (no (unknown) (unknown) 4 mg PO BID Qty: (units (unknown) date) 20 0RF unknown) (unknown) (no (unknown) (unknown) ? (units (unkno wn) date) unknown) (unknown) (no (unknown) (unknown) ABDOMEN: Soft, (units (unknown) date) nontender. unknown) Normoactive bowel sounds all 4 quadrants. No (unknown) (no (unknown) (unknown) Activity (units (unkno wn) date) Restrictions/Addit unknown) ional Instructions: (unknown) (no (unknown) (unknown) Age/Sex: 66 / M (units (unknown) date) unknown) (unknown) (no (unknown) (unknown) Alignment and (units ( unknown) date) Curvature:? There unknown) is normal bony alignment.? (unknown) (no (unknown) (unknown) Allergies (units (unkn own) date) unknown) (unknown) (no (unknown) (unknown) Allergy/AdvReac (units (unknown) date) Type Severity unknown) Reaction Status Date / Time (unknown) (no (unknown) (unknown) Approved by: Lane (units (unknown) date) Claude Rossi on unknown) 12/18/2022 at 12:53? (unknown) (no (unknown) (unknown) BACK: No (units (unkno wn) date) vertebral unknown) tenderness (unknown) (no (unknown) (unknown) Blood Pressure (units (unknown) date) 12/18/22 unknown) 10:42 (unknown) (no (unknown) (unknown) Blood Pressure (units (unknown) date) 122/76 unknown) (unknown) (no (unknown) (unknown) Blood Pressure (units (unknown) date) 109/64 unknown) (unknown) (no (unknown) (unknown) Blood Pressure (units (unknown) date) 110/52 L unknown) (unknown) (no (unknown) (unknown) Blood Pressure (units (unknown) date) 113/56 L 99/58 L unknown) (unknown) (no (unknown) (unknown) Blood Pressure (units (unknown) date) unknown) (unknown) (no (unknown) (unknown) Bone Marrow:? (units (u nknown) date) Multifocal unknown) metastatic marrow replacement noted in the L2 vertebral (unknown) (no (unknown) (unknown) CARDIOVASCULAR: (units (unknown) date) Regular rate and unknown) rhythm without murmurs, rubs or gallops. (unknown) (no (unknown) (unknown) COMPARISON:? (units (u nknown) date) None. unknown) (unknown) (no (unknown) (unknown) Chief Complaint: (units (unknown) date) Back Pain/Injury unknown) (unknown) (no (unknown) (unknown) Clinical (units (unkno wn) date) Impression: unknown) (unknown) (no (unknown) (unknown) Course (units (unkno wn) date) unknown) (unknown) (no (unknown) (unknown) : 1955 (units (unknown) date) Acct:[id number] unknown) (unknown) (no (unknown) (unknown) Date of Service: (units (unknown) date) 12/18/22 unknown) (unknown) (no (unknown) (unknown) Departure (units (unkn own) date) unknown) (unknown) (no (unknown) (unknown) Dexamethasone 4 mg (units (unknown) date) twice a day day unknown) until further instructions--> THEO LYNNE (unknown) (no (unknown) (unknown) Discharge Plan (units (unknown) date) unknown) (unknown) (no (unknown) (unknown) ED Orders (units (unkn own) date) unknown) (unknown) (no (unknown) (unknown) ER Physician: (units ( unknown) date) Mahogany Madrigal unknown) D.O. (unknown) (no (unknown) (unknown) EXTREMITIES: (units (u nknown) date) Normal range of unknown) motion, no clubbing or edema. Neurovascularly (unknown) (no (unknown) (unknown) Emergency Report (units (unknown) date) unknown) (unknown) (no (unknown) (unknown) Exam (units (unkno wn) date) unknown) (unknown) (no (unknown) (unknown) FINDINGS:? (units (unk nown) date) unknown) (unknown) (no (unknown) (unknown) Follow-up with (units (unknown) date) oncology on Wednesday unknown) as scheduled (unknown) (no (unknown) (unknown) GENERAL: Alert (units (unknown) date) very pleasant unknown) 66-year-old male and in no acute distress. (unknown) (no (unknown) (unknown) General (units (unkno wn) date) unknown) (unknown) (no (unknown) (unknown) HARBOR (units (unkno wn) date) unknown) (unknown) (no (unknown) (unknown) HEENT: Head (units (un known) date) atraumatic,EOMI, unknown) pupils reactive, face symmetric, moist mucous (unknown) (no (unknown) (unknown) HPI - Back (units (unk nown) date) Pain/Injury unknown) (unknown) (no (unknown) (unknown) HPI Narrative: (units (unknown) date) unknown) (unknown) (no (unknown) (unknown) History of (units (unk nown) date) Present Illness unknown) (unknown) (no (unknown) (unknown) IMPRESSION:? (units (u nknown) date) unknown) (unknown) (no (unknown) (unknown) INDICATIONS:? (units ( unknown) date) prostate CA mets unknown) to bone, weak legs incontinence (unknown) (no (unknown) (unknown) Image quality:? (units (unknown) date) Excellent.? unknown) (unknown) (no (unknown) (unknown) Imaging Data (units (u nknown) date) unknown) (unknown) (no (unknown) (unknown) Initial Vital (units ( unknown) date) Signs unknown) (unknown) (no (unknown) (unknown) Initial Vital (units ( unknown) date) Signs: unknown) (unknown) (no (unknown) (unknown) Instructions: DI (units (unknown) date) for Low Back Pain unknown) (unknown) (no (unknown) (unknown) [facility] (units (unknown) date) [address] unknown) [place] [address] (unknown) (no (unknown) (unknown) L1-L2:? Normal (units (unknown) date) appearance.? unknown) (unknown) (no (unknown) (unknown) L2-L3:? Disc (units (u nknown) date) space narrowing unknown) with circumferential disc bulge results in mild (unknown) (no (unknown) (unknown) L3-L4:? Disc (units (u nknown) date) space narrowing unknown) with asymmetric right disc bulge results in (unknown) (no (unknown) (unknown) L4-5 (units (unkno wn) date) unknown) (unknown) (no (unknown) (unknown) L4-L5:? Disc (units (u nknown) date) space narrowing unknown) hypertrophic facet joints combined result in (unknown) (no (unknown) (unknown) L5-S1:? Disc (units (u nknown) date) space narrowing unknown) with disc bulge and hypertrophic facet joints (unknown) (no (unknown) (unknown) [id number] (units (unk nown) date) unknown) (unknown) (no (unknown) (unknown) MDM - Back (units (unk nown) date) Pain/Injury unknown) (unknown) (no (unknown) (unknown) MR lumbar spine (units (unknown) date) wo con Stat unknown) (unknown) (no (unknown) (unknown) MR lumbar: (units (unk nown) date) unknown) (unknown) (no (unknown) (unknown) Medication (units (unk nown) date) Instructions unknown) Recorded (unknown) (no (unknown) (unknown) Miscellaneous,Doc (units (unknown) date) MD gianfranco [Primary unknown) Care Provider] (unknown) (no (unknown) (unknown) NEUROLOGICAL: (units ( unknown) date) Alert and oriented unknown) x4.Normal gait and speech. (unknown) (no (unknown) (unknown) New (units (unkno wn) date) unknown) (unknown) (no (unknown) (unknown) No Known Drug (units ( unknown) date) Allergies Allergy unknown) Verified 12/18/22 10:42 (unknown) (no (unknown) (unknown) Noncontrast (units (un known) date) sagittal T1 spin unknown) echo and T2 fast echo, sagittal STIR, and T2 fast (unknown) (no (unknown) (unknown) Ordered: (units (unkno wn) date) unknown) (unknown) (no (unknown) (unknown) Orders (units (unkno wn) date) unknown) (unknown) (no (unknown) (unknown) Oxygen Delivery (units (unknown) date) Method Room Air unknown) 12/18/22 10:42 (unknown) (no (unknown) (unknown) Oxygen Delivery (units (unknown) date) Method Room Air unknown) (unknown) (no (unknown) (unknown) Oxygen Delivery (units (unknown) date) Method unknown) (unknown) (no (unknown) (unknown) PROCEDURE:? MR (units (unknown) date) LUMBAR SPINE WO unknown) CON (unknown) (no (unknown) (unknown) Paraspinous Soft (units (unknown) date) Tissues:? No unknown) paravertebral masses.? (unknown) (no (unknown) (unknown) Patient (units (unkno wn) date) Disposition: Home unknown) (unknown) (no (unknown) (unknown) Patient History (units (unknown) date) unknown) (unknown) (no (unknown) (unknown) Patient is a (units (u nknown) date) 66-year-old male unknown) who has history of metastatic prostate cancer (unknown) (no (unknown) (unknown) Patient: (units (unkno wn) date) Bradford Beebe unknown) [place] MR#: (unknown) (no (unknown) (unknown) Prescriptions: (units (unknown) date) unknown) (unknown) (no (unknown) (unknown) Previous Rx's (units ( unknown) date) unknown) (unknown) (no (unknown) (unknown) Prostate cancer (units (unknown) date) metastatic to bone unknown) (unknown) (no (unknown) (unknown) Pulse Oximetry 93 (units (unknown) date) 92 unknown) (unknown) (no (unknown) (unknown) Pulse Oximetry 93 (units (unknown) date) 96 94 unknown) (unknown) (no (unknown) (unknown) Pulse Oximetry 94 (units (unknown) date) unknown) (unknown) (no (unknown) (unknown) Pulse Oximetry 96 (units (unknown) date) 12/18/22 10:42 unknown) (unknown) (no (unknown) (unknown) Pulse Oximetry 96 (units (unknown) date) 95 unknown) (unknown) (no (unknown) (unknown) Pulse Oximetry (units (unknown) date) unknown) (unknown) (no (unknown) (unknown) Pulse Rate 74 89 (units (unknown) date) 87 unknown) (unknown) (no (unknown) (unknown) Pulse Rate 74 (units ( unknown) date) unknown) (unknown) (no (unknown) (unknown) Pulse Rate 83 74 (units (unknown) date) unknown) (unknown) (no (unknown) (unknown) Pulse Rate 96 H (units (unknown) date) 12/18/22 10:42 unknown) (unknown) (no (unknown) (unknown) Pulse Rate 96 H (units (unknown) date) 93 H unknown) (unknown) (no (unknown) (unknown) Pulse Rate (units (unk nown) date) unknown) (unknown) (no (unknown) (unknown) RESPIRATORY: (units (u nknown) date) Breath sounds unknown) equal bilaterally, no wheezes rales or rhonchi. (unknown) (no (unknown) (unknown) ROS Unobtainable: (units (unknown) date) All systems unknown) reviewed + are unremarkable except as noted in HPI (unknown) (no (unknown) (unknown) Radiologist's (units ( unknown) date) Impression: unknown) (unknown) (no (unknown) (unknown) Referrals: (units (unk nown) date) unknown) (unknown) (no (unknown) (unknown) Related Data (units (u nknown) date) unknown) (unknown) (no (unknown) (unknown) Respiratory Rate (units (unknown) date) 15 12/18/22 10:42 unknown) (unknown) (no (unknown) (unknown) Respiratory Rate (units (unknown) date) 15 unknown) (unknown) (no (unknown) (unknown) Respiratory Rate (units (unknown) date) unknown) (unknown) (no (unknown) (unknown) Review of Systems (units (unknown) date) unknown) (unknown) (no (unknown) (unknown) SKIN: Warm, dry, (units (unknown) date) no laceration, no unknown) petechiae, no rashes or lesions. (unknown) (no (unknown) (unknown) Signed By: (units (unk nown) date) unknown) (unknown) (no (unknown) (unknown) Smoking Status: (units (unknown) date) Unknown if ever unknown) smoked (unknown) (no (unknown) (unknown) Social History (units (unknown) date) (Reviewed 12/18/22 unknown) @ 15:22 by Mahogany Madrigal DO) (unknown) (no (unknown) (unknown) Source: patient (units (unknown) date) unknown) (unknown) (no (unknown) (unknown) Spinal Cord:? (units ( unknown) date) Conus medullaris unknown) terminates at the L1 level.? Visualized cord (unknown) (no (unknown) (unknown) Stand Alone (units (un known) date) Forms: Patient unknown) Portal/API (unknown) (no (unknown) (unknown) Stated Complaint: (units (unknown) date) Sent by Wolf Clark unknown) extreme pain pelvic region (unknown) (no (unknown) (unknown) Substance Use (units ( unknown) date) Type: does not use unknown) (unknown) (no (unknown) (unknown) T12-L1:? Normal (units (unknown) date) appearance.? unknown) (unknown) (no (unknown) (unknown) TECHNIQUE:? (units (un known) date) unknown) (unknown) (no (unknown) (unknown) Temperature 96.7 (units (unknown) date) F L 03/03/23 10:42 unknown) (unknown) (no (unknown) (unknown) Temperature 96.7 (units (unknown) date) F L unknown) (unknown) (no (unknown) (unknown) Temperature (units (un known) date) unknown) (unknown) (no (unknown) (unknown) Time Seen by (units (u nknown) date) Provider: 12/18/22 unknown) 11:31 (unknown) (no (unknown) (unknown) Vital Signs - 8 (units (unknown) date) hr unknown) (unknown) (no (unknown) (unknown) Vital Signs (units (un known) date) unknown) (unknown) (no (unknown) (unknown) Vital signs: (units (u nknown) date) unknown) (unknown) (no (unknown) (unknown) alcohol intake (units (unknown) date) frequency: unknown) holidays/special occasions only (unknown) (no (unknown) (unknown) and below (units (unkn own) date) unknown) (unknown) (no (unknown) (unknown) body, (units (unkno wn) date) unknown) (unknown) (no (unknown) (unknown) causing (units (unkno wn) date) compression your unknown) cord. (unknown) (no (unknown) (unknown) central and (units (un known) date) unknown) (unknown) (no (unknown) (unknown) central or (units (unk nown) date) foraminal unknown) stenosis. (unknown) (no (unknown) (unknown) central stenosis (units (unknown) date) and effacement of unknown) the right lateral recess. (unknown) (no (unknown) (unknown) central stenosis. (units (unknown) date) unknown) (unknown) (no (unknown) (unknown) central (units (unkno wn) date) stenosis.? unknown) Moderate to severe bilateral foraminal stenosis. (unknown) (no (unknown) (unknown) demonstrates (units (u nknown) date) unknown) (unknown) (no (unknown) (unknown) dexamethasone 4 (units (unknown) date) mg tablet 4 mg PO unknown) BID #20 tabs 12/18/22 (unknown) (no (unknown) (unknown) dexamethasone 4 (units (unknown) date) mg tablet unknown) (unknown) (no (unknown) (unknown) difficulty (units (unk nown) date) walking and unknown) weakness in his legs. He had stool incontinence last (unknown) (no (unknown) (unknown) entire L4 (units (unkn own) date) vertebral body, as unknown) well as the sacrum and both iliac spines.? At L4, (unknown) (no (unknown) (unknown) foraminal and no (units (unknown) date) left foraminal unknown) stenosis.? Effacement of the right lateral (unknown) (no (unknown) (unknown) guarding or (units (un known) date) rebound. unknown) (unknown) (no (unknown) (unknown) in mild (units (unkno wn) date) unknown) (unknown) (no (unknown) (unknown) intact (units (unkno wn) date) unknown) (unknown) (no (unknown) (unknown) involvement of (units (unknown) date) the ventral unknown) epidural space without pathologic fracture resulting (unknown) (no (unknown) (unknown) is controlled (units ( unknown) date) with oxycodone unknown) (unknown) (no (unknown) (unknown) may be (units (unkno wn) date) performed.? unknown) (unknown) (no (unknown) (unknown) membranes (units (unkn own) date) unknown) (unknown) (no (unknown) (unknown) mild central (units (u nknown) date) stenosis and unknown) effacement of the right lateral recess. (unknown) (no (unknown) (unknown) moderate (units (unkno wn) date) bilateral unknown) foraminal stenosis (unknown) (no (unknown) (unknown) moderate right (units (unknown) date) unknown) (unknown) (no (unknown) (unknown) moderate (units (unkno wn) date) unknown) (unknown) (no (unknown) (unknown) night but does (units (unknown) date) otherwise still unknown) have bowel and bladder control. No fevers. Pain (unknown) (no (unknown) (unknown) normal signal and (units (unknown) date) size.? unknown) (unknown) (no (unknown) (unknown) or any new, (units (un known) date) worsening or unknown) concerning symptoms (unknown) (no (unknown) (unknown) present.? No (units (u nknown) date) unknown) (unknown) (no (unknown) (unknown) recently went to (units (unknown) date) the lumbar spine. unknown) Over last 2 weeks he has progressive (unknown) (no (unknown) (unknown) recess but no (units ( unknown) date) unknown) (unknown) (no (unknown) (unknown) resulting in (units (u nknown) date) unknown) (unknown) (no (unknown) (unknown) right lateral (units (u nknown) date) recess at L3-4 and unknown) moderate to severe bilateral foraminal stenosis (unknown) (no (unknown) (unknown) spin echo (units (unkn own) date) unknown) (unknown) (no (unknown) (unknown) the (units (unkno wn) date) unknown) (unknown) (no (unknown) (unknown) there is (units (unkno wn) date) unknown) (unknown) (no (unknown) (unknown) through the (units (un known) date) lumbar spine.? In unknown) cases with scoliosis, additional coronal T2 fast Result panel 8 (unknown) (no (unknown) (unknown) (no value) (units (unk nown) date) unknown) (unknown) (no (unknown) (unknown) <Electronically (units (unknown) date) signed by Mahogany unknown) Ifeanyi Madrigal> (unknown) (no (unknown) (unknown) *Continue to take (units (unknown) date) medications as unknown) directed (unknown) (no (unknown) (unknown) *Follow up with (units (unknown) date) your primary care unknown) provider in 2-3 days or call [phone] (unknown) (no (unknown) (unknown) *Return to ER if (units (unknown) date) you should have unknown) increasing leg weakness loss of urine or stool (unknown) (no (unknown) (unknown) *What to do: At (units (unknown) date) this time you do unknown) have metastatic disease to her spine but not (unknown) (no (unknown) (unknown) *You have been (units (unknown) date) diagnosed with unknown) back pain (unknown) (no (unknown) (unknown) 12/18/22 12:55 (units (unknown) date) unknown) (unknown) (no (unknown) (unknown) 12/18/22 (units (unkno wn) date) unknown) (unknown) (no (unknown) (unknown) 12/19/22 0808 (units ( unknown) date) unknown) (unknown) (no (unknown) (unknown) 1. 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 (unknown) (no (unknown) (unknown) 10:42 12/18/22 (units (unknown) date) unknown) (unknown) (no (unknown) (unknown) 11:23 12/18/22 (units (unknown) date) unknown) (unknown) (no (unknown) (unknown) 11:23 (units (unkno wn) date) unknown) (unknown) (no (unknown) (unknown) 11:30 12/18/22 (units (unknown) date) unknown) (unknown) (no (unknown) (unknown) 12:00 (units (unkno wn) date) unknown) (unknown) (no (unknown) (unknown) 12:01 12/18/22 (units (unknown) date) unknown) (unknown) (no (unknown) (unknown) 12:30 12/18/22 (units (unknown) date) unknown) (unknown) (no (unknown) (unknown) 12:30 (units (unkno wn) date) unknown) (unknown) (no (unknown) (unknown) 14:03 12/18/22 (units (unknown) date) unknown) (unknown) (no (unknown) (unknown) 14:04 (units (unkno wn) date) unknown) (unknown) (no (unknown) (unknown) 2. Multilevel (units (u nknown) date) degenerative disc unknown) disease and arthropathy results in effacement of (unknown) (no (unknown) (unknown) 4 mg PO BID Qty: (units (unknown) date) 20 0RF unknown) (unknown) (no (unknown) (unknown) ? (units (unkno wn) date) unknown) (unknown) (no (unknown) (unknown) ABDOMEN: Soft, (units (unknown) date) nontender. unknown) Normoactive bowel sounds all 4 quadrants. No (unknown) (no (unknown) (unknown) Activity (units (unkno wn) date) Restrictions/Addit unknown) ional Instructions: (unknown) (no (unknown) (unknown) Age/Sex: 66 / M (units (unknown) date) unknown) (unknown) (no (unknown) (unknown) Alignment and (units ( unknown) date) Curvature:? There unknown) is normal bony alignment.? (unknown) (no (unknown) (unknown) Allergies (units (unkn own) date) unknown) (unknown) (no (unknown) (unknown) Allergy/AdvReac (units (unknown) date) Type Severity unknown) Reaction Status Date / Time (unknown) (no (unknown) (unknown) Approved by: Lane Deleonunits (unknown) date) lCaude Rossi on unknown) 12/18/2022 at 12:53? (unknown) (no (unknown) (unknown) BACK: No (units (unkno wn) date) vertebral unknown) tenderness (unknown) (no (unknown) (unknown) Blood Pressure (units (unknown) date) 106/73 12/18/22 unknown) 10:42 (unknown) (no (unknown) (unknown) Blood Pressure (units (unknown) date) 106/73 122/76 unknown) (unknown) (no (unknown) (unknown) Blood Pressure (units (unknown) date) 109/64 unknown) (unknown) (no (unknown) (unknown) Blood Pressure (units (unknown) date) 110/52 L unknown) (unknown) (no (unknown) (unknown) Blood Pressure (units (unknown) date) 113/56 L 99/58 L unknown) (unknown) (no (unknown) (unknown) Blood Pressure (units (unknown) date) unknown) (unknown) (no (unknown) (unknown) Bone Marrow:? (units (u nknown) date) Multifocal unknown) metastatic marrow replacement noted in the L2 vertebral (unknown) (no (unknown) (unknown) CARDIOVASCULAR: (units (unknown) date) Regular rate and unknown) rhythm without murmurs, rubs or gallops. (unknown) (no (unknown) (unknown) COMPARISON:? (units (u nknown) date) None. unknown) (unknown) (no (unknown) (unknown) Chief Complaint: (units (unknown) date) Back Pain/Injury unknown) (unknown) (no (unknown) (unknown) Clinical (units (unkno wn) date) Impression: unknown) (unknown) (no (unknown) (unknown) Course (units (unkno wn) date) unknown) (unknown) (no (unknown) (unknown) : 1955 (units (unknown) date) Acct:[id number] unknown) (unknown) (no (unknown) (unknown) Date of Service: (units (unknown) date) 12/18/22 unknown) (unknown) (no (unknown) (unknown) Departure (units (unkn own) date) unknown) (unknown) (no (unknown) (unknown) Dexamethasone 4 mg (units (unknown) date) twice a day day unknown) until further instructions--> [place] (unknown) (no (unknown) (unknown) Discharge Plan (units (unknown) date) unknown) (unknown) (no (unknown) (unknown) ED Orders (units (unkn own) date) unknown) (unknown) (no (unknown) (unknown) ER Physician: (units ( unknown) date) Mahogany Madrigal unknown) D.O. (unknown) (no (unknown) (unknown) EXTREMITIES: (units (u nknown) date) Normal range of unknown) motion, no clubbing or edema. Neurovascularly (unknown) (no (unknown) (unknown) Emergency Report (units (unknown) date) unknown) (unknown) (no (unknown) (unknown) Exam (units (unkno wn) date) unknown) (unknown) (no (unknown) (unknown) FINDINGS:? (units (unk nown) date) unknown) (unknown) (no (unknown) (unknown) Follow-up with (units (unknown) date) oncology on Wednesday unknown) as scheduled (unknown) (no (unknown) (unknown) GENERAL: Alert (units (unknown) date) very pleasant unknown) 66-year-old male and in no acute distress. (unknown) (no (unknown) (unknown) General (units (unkno wn) date) unknown) (unknown) (no (unknown) (unknown) HARBOR (units (unkno wn) date) unknown) (unknown) (no (unknown) (unknown) HEENT: Head (units (un known) date) atraumatic,EOMI, unknown) pupils reactive, face symmetric, moist mucous (unknown) (no (unknown) (unknown) HPI - Back (units (unk nown) date) Pain/Injury unknown) (unknown) (no (unknown) (unknown) HPI Narrative: (units (unknown) date) unknown) (unknown) (no (unknown) (unknown) History of (units (unk nown) date) Present Illness unknown) (unknown) (no (unknown) (unknown) I spoke with (units (unknown) date) [facility] patient's unknown) oncologist who reports to start him on (unknown) (no (unknown) (unknown) IMPRESSION:? (units (u nknown) date) unknown) (unknown) (no (unknown) (unknown) INDICATIONS:? (units ( unknown) date) prostate CA mets unknown) to bone, weak legs incontinence (unknown) (no (unknown) (unknown) Image quality:? (units (unknown) date) Excellent.? unknown) (unknown) (no (unknown) (unknown) Imaging Data (units (u nknown) date) unknown) (unknown) (no (unknown) (unknown) Initial Vital (units ( unknown) date) Signs unknown) (unknown) (no (unknown) (unknown) Initial Vital (units ( unknown) date) Signs: unknown) (unknown) (no (unknown) (unknown) Instructions: DI (units (unknown) date) for Low Back Pain unknown) (unknown) (no (unknown) (unknown) [facility] (units (unknown) date) [address] [place] [address] unknown) [place] [address] (unknown) (no (unknown) (unknown) L1-L2:? Normal (units (unknown) date) appearance.? unknown) (unknown) (no (unknown) (unknown) L2-L3:? Disc (units (u nknown) date) space narrowing unknown) with circumferential disc bulge results in mild (unknown) (no (unknown) (unknown) L3-L4:? Disc (units (u nknown) date) space narrowing unknown) with asymmetric right disc bulge results in (unknown) (no (unknown) (unknown) L4-5 (units (unkno wn) date) unknown) (unknown) (no (unknown) (unknown) L4-L5:? Disc (units (u nknown) date) space narrowing unknown) hypertrophic facet joints combined result in (unknown) (no (unknown) (unknown) L5-S1:? Disc (units (u nknown) date) space narrowing unknown) with disc bulge and hypertrophic facet joints (unknown) (no (unknown) (unknown) [id number] (units (unk nown) date) unknown) (unknown) (no (unknown) (unknown) MDM - Back (units (unk nown) date) Pain/Injury unknown) (unknown) (no (unknown) (unknown) MDM Narrative (units ( unknown) date) unknown) (unknown) (no (unknown) (unknown) MR does not show (units (unknown) date) any cord unknown) compression no decreased cord signal. No specific (unknown) (no (unknown) (unknown) MR lumbar spine (units (unknown) date) wo con Stat unknown) (unknown) (no (unknown) (unknown) MR lumbar: (units (unk nown) date) unknown) (unknown) (no (unknown) (unknown) Medical decision (units (unknown) date) making narrative: unknown) (unknown) (no (unknown) (unknown) Medication (units (unk nown) date) Instructions unknown) Recorded (unknown) (no (unknown) (unknown) Miscellaneous,Doc (units (unknown) date) MD gianfranco [Primary unknown) Care Provider] (unknown) (no (unknown) (unknown) NEUROLOGICAL: (units ( unknown) date) Alert and oriented unknown) x4.Normal gait and speech. (unknown) (no (unknown) (unknown) New (units (unkno wn) date) unknown) (unknown) (no (unknown) (unknown) No Known Drug (units ( unknown) date) Allergies Allergy unknown) Verified 12/18/22 10:42 (unknown) (no (unknown) (unknown) Noncontrast (units (un known) date) sagittal T1 spin unknown) echo and T2 fast echo, sagittal STIR, and T2 fast (unknown) (no (unknown) (unknown) Ordered: (units (unkno wn) date) unknown) (unknown) (no (unknown) (unknown) Orders (units (unkno wn) date) unknown) (unknown) (no (unknown) (unknown) Oxygen Delivery (units (unknown) date) Method Room Air unknown) 12/18/22 10:42 (unknown) (no (unknown) (unknown) Oxygen Delivery (units (unknown) date) Method Room Air unknown) (unknown) (no (unknown) (unknown) Oxygen Delivery (units (unknown) date) Method unknown) (unknown) (no (unknown) (unknown) PROCEDURE:? MR (units (unknown) date) LUMBAR SPINE WO unknown) CON (unknown) (no (unknown) (unknown) Paraspinous Soft (units (unknown) date) Tissues:? No unknown) paravertebral masses.? (unknown) (no (unknown) (unknown) Patient (units (unkno wn) date) Disposition: Home unknown) (unknown) (no (unknown) (unknown) Patient History (units (unknown) date) unknown) (unknown) (no (unknown) (unknown) Patient has (units (un known) date) metastatic unknown) prostate cancer to bone with increasing bilateral leg (unknown) (no (unknown) (unknown) Patient is a (units (u nknown) date) 66-year-old male unknown) who has history of metastatic prostate cancer (unknown) (no (unknown) (unknown) Patient: (units (unkno wn) date) Bradford Beebe unknown) [place] MR#: (unknown) (no (unknown) (unknown) Prescriptions: (units (unknown) date) unknown) (unknown) (no (unknown) (unknown) Previous Rx's (units ( unknown) date) unknown) (unknown) (no (unknown) (unknown) Prostate cancer (units (unknown) date) metastatic to bone unknown) (unknown) (no (unknown) (unknown) Pulse Oximetry 93 (units (unknown) date) 92 unknown) (unknown) (no (unknown) (unknown) Pulse Oximetry 93 (units (unknown) date) 96 94 unknown) (unknown) (no (unknown) (unknown) Pulse Oximetry 94 (units (unknown) date) unknown) (unknown) (no (unknown) (unknown) Pulse Oximetry 96 (units (unknown) date) 12/18/22 10:42 unknown) (unknown) (no (unknown) (unknown) Pulse Oximetry 96 (units (unknown) date) 95 unknown) (unknown) (no (unknown) (unknown) Pulse Oximetry (units (unknown) date) unknown) (unknown) (no (unknown) (unknown) Pulse Rate 74 89 (units (unknown) date) 87 unknown) (unknown) (no (unknown) (unknown) Pulse Rate 74 (units ( unknown) date) unknown) (unknown) (no (unknown) (unknown) Pulse Rate 83 74 (units (unknown) date) unknown) (unknown) (no (unknown) (unknown) Pulse Rate 96 H (units (unknown) date) 12/18/22 10:42 unknown) (unknown) (no (unknown) (unknown) Pulse Rate 96 H (units (unknown) date) 93 H unknown) (unknown) (no (unknown) (unknown) Pulse Rate (units (unk nown) date) unknown) (unknown) (no (unknown) (unknown) RESPIRATORY: (units (u nknown) date) Breath sounds unknown) equal bilaterally, no wheezes rales or rhonchi. (unknown) (no (unknown) (unknown) ROS Unobtainable: (units (unknown) date) All systems unknown) reviewed + are unremarkable except as noted in HPI (unknown) (no (unknown) (unknown) Radiologist's (units ( unknown) date) Impression: unknown) (unknown) (no (unknown) (unknown) Referrals: (units (unk nown) date) unknown) (unknown) (no (unknown) (unknown) Related Data (units (u nknown) date) unknown) (unknown) (no (unknown) (unknown) Respiratory Rate (units (unknown) date) 15 12/18/22 10:42 unknown) (unknown) (no (unknown) (unknown) Respiratory Rate (units (unknown) date) 15 unknown) (unknown) (no (unknown) (unknown) Respiratory Rate (units (unknown) date) unknown) (unknown) (no (unknown) (unknown) Review of Systems (units (unknown) date) unknown) (unknown) (no (unknown) (unknown) SKIN: Warm, dry, (units (unknown) date) no laceration, no unknown) petechiae, no rashes or lesions. (unknown) (no (unknown) (unknown) Signed By: (units (unk nown) date) unknown) (unknown) (no (unknown) (unknown) Smoking Status: (units (unknown) date) Unknown if ever unknown) smoked (unknown) (no (unknown) (unknown) Social History (units (unknown) date) (Reviewed 12/18/22 unknown) @ 15:22 by Mahogany Madrigal DO) (unknown) (no (unknown) (unknown) Source: patient (units (unknown) date) unknown) (unknown) (no (unknown) (unknown) Spinal Cord:? (units ( unknown) date) Conus medullaris unknown) terminates at the L1 level.? Visualized cord (unknown) (no (unknown) (unknown) Stand Alone (units (un known) date) Forms: Patient unknown) Portal/API (unknown) (no (unknown) (unknown) Stated Complaint: (units (unknown) date) Sent by [facility] unknown) extreme pain pelvic region (unknown) (no (unknown) (unknown) Substance Use (units ( unknown) date) Type: does not use unknown) (unknown) (no (unknown) (unknown) T12-L1:? Normal (units (unknown) date) appearance.? unknown) (unknown) (no (unknown) (unknown) TECHNIQUE:? (units (un known) date) unknown) (unknown) (no (unknown) (unknown) Temperature 96.7 (units (unknown) date) F L 12/18/22 10:42 unknown) (unknown) (no (unknown) (unknown) Temperature 96.7 (units (unknown) date) F L unknown) (unknown) (no (unknown) (unknown) Temperature (units (un known) date) unknown) (unknown) (no (unknown) (unknown) Time Seen by (units (u nknown) date) Provider: 12/18/22 unknown) 11:31 (unknown) (no (unknown) (unknown) Vital Signs - 8 (units (unknown) date) hr unknown) (unknown) (no (unknown) (unknown) Vital Signs (units (un known) date) unknown) (unknown) (no (unknown) (unknown) Vital signs: (units (u nknown) date) unknown) (unknown) (no (unknown) (unknown) alcohol intake (units (unknown) date) frequency: unknown) holidays/special occasions only (unknown) (no (unknown) (unknown) and below (units (unkn own) date) unknown) (unknown) (no (unknown) (unknown) body, (units (unkno wn) date) unknown) (unknown) (no (unknown) (unknown) causing (units (unkno wn) date) compression your unknown) cord. (unknown) (no (unknown) (unknown) central and (units (un known) date) unknown) (unknown) (no (unknown) (unknown) central or (units (unk nown) date) foraminal unknown) stenosis. (unknown) (no (unknown) (unknown) central stenosis (units (unknown) date) and effacement of unknown) the right lateral recess. (unknown) (no (unknown) (unknown) central stenosis. (units (unknown) date) unknown) (unknown) (no (unknown) (unknown) central (units (unkno wn) date) stenosis.? unknown) Moderate to severe bilateral foraminal stenosis. (unknown) (no (unknown) (unknown) demonstrates (units (u nknown) date) unknown) (unknown) (no (unknown) (unknown) dexamethasone 4 (units (unknown) date) mg tablet 4 mg PO unknown) BID #20 tabs 12/18/22 (unknown) (no (unknown) (unknown) dexamethasone 4 (units (unknown) date) mg tablet unknown) (unknown) (no (unknown) (unknown) dexamethasone. I (units (unknown) date) have confirmed unknown) with Radiology that there is no compromise in (unknown) (no (unknown) (unknown) difficulty (units (unk nown) date) walking and unknown) weakness in his legs. He had stool incontinence last (unknown) (no (unknown) (unknown) entire L4 (units (unkn own) date) vertebral body, as unknown) well as the sacrum and both iliac spines.? At L4, (unknown) (no (unknown) (unknown) findings on (units (un known) date) physical exam. unknown) (unknown) (no (unknown) (unknown) foraminal and no (units (unknown) date) left foraminal unknown) stenosis.? Effacement of the right lateral (unknown) (no (unknown) (unknown) further workup. (units (unknown) date) unknown) (unknown) (no (unknown) (unknown) guarding or (units (un known) date) rebound. unknown) (unknown) (no (unknown) (unknown) he took his dose (units (unknown) date) oxycodone in the unknown) emergency department. He was doing well in (unknown) (no (unknown) (unknown) in mild (units (unkno wn) date) unknown) (unknown) (no (unknown) (unknown) intact. Able to (units (unknown) date) lift legs, unknown) sensation in lower extremities intact (unknown) (no (unknown) (unknown) involvement of (units (unknown) date) the ventral unknown) epidural space without pathologic fracture resulting (unknown) (no (unknown) (unknown) is controlled (units ( unknown) date) with oxycodone unknown) (unknown) (no (unknown) (unknown) may be (units (unkno wn) date) performed.? unknown) (unknown) (no (unknown) (unknown) membranes (units (unkn own) date) unknown) (unknown) (no (unknown) (unknown) mild central (units (u nknown) date) stenosis and unknown) effacement of the right lateral recess. (unknown) (no (unknown) (unknown) moderate (units (unkno wn) date) bilateral unknown) foraminal stenosis (unknown) (no (unknown) (unknown) moderate right (units (unknown) date) unknown) (unknown) (no (unknown) (unknown) moderate (units (unkno wn) date) unknown) (unknown) (no (unknown) (unknown) night but does (units (unknown) date) otherwise still unknown) have bowel and bladder control. No fevers. Pain (unknown) (no (unknown) (unknown) normal signal and (units (unknown) date) size.? unknown) (unknown) (no (unknown) (unknown) or any new, (units (un known) date) worsening or unknown) concerning symptoms (unknown) (no (unknown) (unknown) present.? No (units (u nknown) date) unknown) (unknown) (no (unknown) (unknown) recently went to (units (unknown) date) the lumbar spine. unknown) Over last 2 weeks he has progressive (unknown) (no (unknown) (unknown) recess but no (units ( unknown) date) unknown) (unknown) (no (unknown) (unknown) resulting in (units (u nknown) date) unknown) (unknown) (no (unknown) (unknown) right lateral (units (u nknown) date) recess at L3-4 and unknown) moderate to severe bilateral foraminal stenosis (unknown) (no (unknown) (unknown) spin echo (units (unkn own) date) unknown) (unknown) (no (unknown) (unknown) the ER no (units (unkn own) date) complications. unknown) Without fever or other symptoms no need to do any (unknown) (no (unknown) (unknown) the cord signal (units (unknown) date) that there is no unknown) cord compression. Patient was having some pain (unknown) (no (unknown) (unknown) the (units (unkno wn) date) unknown) (unknown) (no (unknown) (unknown) there is (units (unkno wn) date) unknown) (unknown) (no (unknown) (unknown) through the (units (un known) date) lumbar spine.? In unknown) cases with scoliosis, additional coronal T2 fast (unknown) (no (unknown) (unknown) weakness. Sent (units (unknown) date) here by Oncology unknown) for further evaluation and specifically an MRI. Social History date description facility 2022-12-18 00:00 Tobacco smoking consumption unknown ([facility] Vital Signs date measurement value units 2022-12-18 00:00 BMI 27.7 kg/m2 2022-12-18 00:00 BP_diastolic 73 mmHg 2022-12-18 00:00 BP_systolic 107 mmHg 2022-12-18 00:00 heart_rate 107 /min 2022-12-18 00:00 height_metric 185.42 cm 2022-12-18 00:00 height_standard 73 in 2022-12-18 00:00 o2_saturation 95 % 2022-12-18 00:00 respiration_rate 15 /min 2022-12-18 00:00 temperature_metric 35.94 C 2022-12-18 00:00 temperature_standard 96.7 F 2022-12-18 00:00 weight_metric 95.25 kg 2022-12-18 00:00 weight_standard 209.99 lb
[2023-02-12 18:16] LABS: ALBUMIN 3.2 g/dL (3.2-5.5); ALBUMIN/GLOBULIN RATIO 1.1 (1.0-2.2); BILIRUBIN,TOTAL 0.5 mg/dL (0.2-1.0); CALCIUM 8.5 mg/dL (8.5-10.3); CREATININE 1.7 mg/dL (0.6-1.2); POTASSIUM 3.9 mmol/L (3.5-5.0); TOTAL PROTEIN 6.2 g/dL (6.7-8.2)
--- NOTE | 2023-02-12 18:16 | ED Physician Documentation ---
History of Present Illness - Stated complaint Stated Complaint: LOW BP/SYNCOPE - Chief complaint Chief Complaint: Neuro - Additonal information Additional information: This is a very very pleasant 67-year-old gentleman that presents to the e mergency department for evaluation of syncope. Unfortunately he has a longstanding history of prostate cancer. Currently being managed by [facility]. He is undergoing chemotherapy every 3 weeks. Finished his last cycle 10 days ago. He states for the last 2 days he has had hypotension at home. This afternoon he fainted while trying to ambulate. Reports a typical blood pressure of low 100s over 50s. At home it was 50/40 and on presentation to the ER today he is 70s over 30s. Despite this hypotension he is alert and talking. He denies any recent fevers. No chest pain or shortness of air. He denies melena or hematochezia. He is currently taking a blood pressure medication. Meds: Aspirin 325 daily, lisinopril 20 mg daily, chlorthalidone 25 mg daily, Flomax daily Review of Systems Constitutional: denies: Fever, Chills Throat: reports: Reviewed and negative Cardiac: reports: Reviewed and negative Respiratory: reports: Reviewed and negative GI: reports: Constipation : reports: Reviewed and negative Skin: reports: Reviewed and negative Musculoskeletal: reports: Reviewed and negative Neurologic: reports: Syncope. denies: Focal weakness, Numbness, Difficulty speaking, Headache, LOC PD PAST MEDICAL HISTORY - Past Medical History Cardiovascular: Hypertension Respiratory: None Neuro: None Endocrine/Autoimmune: None : Other HEENT: None Psych: Anxiety Derm: None - Past Surgical History Past Surgical History: Yes - Present Medications Home Medications: Ambulatory Orders Medication Instructions Recorded Confirmed Chlorthalidone 25 mg ORAL DAILY 11/09/22 11/09/22 Finasteride [Proscar] 5 mg PO DAILY 11/09/22 11/09/22 Gabapentin [Neurontin] 100 mg PO HS 11/09/22 11/09/22 LORazepam [Ativan] 0.5 mg PO HS 11/09/22 11/09/22 Medroxyprogesterone Acetate 10 mg PO BID 11/09/22 11/09/22 [Provera] Potassium Chloride 20 meq PO DAILY 11/09/22 11/09/22 Tamsulosin HCl [Flomax] 0.4 mg ORAL DAILY 11/09/22 11/09/22 Trazodone HCl 100 mg PO HS 11/09/22 11/09/22 lisinopriL [Lisinopril] 20 mg ORAL DAILY 11/09/22 11/09/22 oxyCODONE [Roxicodone] 5 mg PO Q6HR PRN 11/09/22 11/09/22 - Allergies Allergies/Adverse Reactions: Allergies Allergy/AdvReac Type Severity Reaction Status Date / Time No Known Drug Allergies Allergy Verified 02/12/23 17:38 - Social History Does the pt smoke?: No Smoking Status: Never smoker Does the pt drink ETOH?: No Does the pt have substance abuse?: No - Immunizations Immunizations are current?: Yes PD ED PE NORMAL - General General: Alert and oriented X 3, No acute distress, Well developed/nourished - HEENT HEENT: Atraumatic - Neck Neck: Supple, no meningeal sign, No adenopathy - Cardiac Cardiac: RRR, No murmur - Respiratory Respiratory: No respiratory distress, Clear bilaterally - Abdomen Abdomen: Normal bowel sounds, Soft, Non tender - Derm Derm: Normal color, Warm and dry - Extremities Extremities: No deformity - Neuro Neuro: Alert and oriented X 3, 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 Relevant findings are: Rate: Rate (enter#) (81) Rhythm: NSR [place]: Normal Intervals: Normal [place] QRS: Poor R wave progression Ischemia: Normal ST segments Compare to prior EKG: Unchanged from prior EKG Computer interpretation: Agree with computer - Labs Labs: Laboratory Tests 04/02/12/23 02/12/23 17:54 17:54 17:54 WBC 17.5 H RBC 3.96 L Hgb 11.9 L Hct 38.2 L MCV 96.5 H MCH 30.1 MCHC 31.2 L RDW 19.6 H Plt Count 291 MPV 9.1 Neut # (Auto) Not Reportable Lymph # (Auto) Not Reportable [place] # (Auto) Not Reportable Eos # (Auto) Not Reportable Baso # (Auto) Not Reportable Absolute Nucleated RBC Not Reportable Total Counted 100 Band Neuts % (Manual) 3 Abnorm Lymph % (Manual) 0 Metamyelocytes % 1 H Nucleated RBC % Not Reportable Neutrophils # (Manual) 16.6 H Lymphocytes # (Manual) 0.4 L Monocytes # (Manual) 0.4 Eosinophils # (Manual) 0.0 Basophils # (Manual) 0.0 Differential Comment MANUAL DIFFERENTIAL WBC Morphology 1+ TOXIC GRANULATION Platelet Estimate NORMAL (130-450,000) Platelet Morphology NORMAL APPEARANCE RBC Morph Micro Appear 1+ POLYCHROMASIA Sodium 139 Potassium 3.9 Chloride 101 Carbon Dioxide 26 Anion Gap 12.0 BUN 37 H Creatinine 1.7 H Estimated GFR (MDRD) 40 L Glucose 190 H Lactic Acid Calcium 8.5 Total Bilirubin 0.5 AST 20 ALT 31 Alkaline Phosphatase 132 H Troponin I High Sens 13.2 Total Protein 6.2 L Albumin 3.2 Globulin 3.0 Albumin/Globulin Ratio 1.1 Lipase 43 Urine Color Urine Clarity Urine pH Ur Specific [place] Urine Protein Urine Glucose (UA) Urine Ketones Urine Occult Blood Urine Nitrite Urine Bilirubin Urine Urobilinogen Ur Leukocyte Esterase Ur Microscopic Review Urine Culture Comments Blood Type Blood Type Recheck Antibody Screen 02/12/23 02/12/23 02/12/23 17:54 18:07 18:07 WBC RBC Hgb Hct MCV MCH MCHC RDW Plt Count MPV Neut # (Auto) Lymph # (Auto) [place] # (Auto) Eos # (Auto) Baso # (Auto) Absolute Nucleated RBC Total Counted Band Neuts % (Manual) Abnorm Lymph % (Manual) Metamyelocytes % Nucleated RBC % Neutrophils # (Manual) Lymphocytes # (Manual) Monocytes # (Manual) Eosinophils # (Manual) Basophils # (Manual) Differential Comment WBC Morphology Platelet Estimate Platelet Morphology RBC Morph Micro Appear Sodium Potassium Chloride Carbon Dioxide Anion Gap BUN Creatinine Estimated GFR (MDRD) Glucose Lactic Acid 1.9 Calcium Total Bilirubin AST ALT Alkaline Phosphatase Troponin I High Sens Total Protein Albumin Globulin Albumin/Globulin Ratio Lipase Urine Color Urine Clarity Urine pH Ur Specific [place] Urine Protein Urine Glucose (UA) Urine Ketones Urine Occult Blood Urine Nitrite Urine Bilirubin Urine Urobilinogen Ur Leukocyte Esterase Ur Microscopic Review Urine Culture Comments Blood Type O NEGATIVE Blood Type Recheck O NEGATIVE Antibody Screen NEGATIVE 02/12/23 20:21 WBC RBC Hgb Hct MCV MCH MCHC RDW Plt Count MPV Neut # (Auto) Lymph # (Auto) [place] # (Auto) Eos # (Auto) Baso # (Auto) Absolute Nucleated RBC Total Counted Band Neuts % (Manual) Abnorm Lymph % (Manual) Metamyelocytes % Nucleated RBC % Neutrophils # (Manual) Lymphocytes # (Manual) Monocytes # (Manual) Eosinophils # (Manual) Basophils # (Manual) Differential Comment WBC Morphology Platelet Estimate Platelet Morphology RBC Morph Micro Appear Sodium Potassium Chloride Carbon Dioxide Anion Gap BUN Creatinine Estimated GFR (MDRD) Glucose Lactic Acid Calcium Total Bilirubin AST ALT Alkaline Phosphatase Troponin I High Sens Total Protein Albumin Globulin Albumin/Globulin Ratio Lipase Urine Color YELLOW Urine Clarity CLEAR Urine pH 6.0 Ur Specific [place] 1.010 Urine Protein NEGATIVE Urine Glucose (UA) NEGATIVE Urine Ketones NEGATIVE Urine Occult Blood NEGATIVE Urine Nitrite NEGATIVE Urine Bilirubin NEGATIVE Urine Urobilinogen 0.2 (NORMAL) Ur Leukocyte Esterase NEGATIVE Ur Microscopic Review NOT INDICATED Urine Culture Comments NOT INDICATED Blood Type Blood Type Recheck Antibody Screen - Rads (name of study) CT abd Relevant Findings:: Final report received (No acute process. No change in central pelvic cystic focus possibly indicating infection or neoplasm. No change in multifocal bony metastatic disease) cxr Relevant Findings:: Final report received (No acute cardiopulmonary process) PD Medical Decision Making - ED course Complexity details: reviewed results, re-evaluated patient, d/w patient ED course: 67-year-old male who has an unfortunate history of known metastatic prostate cancer with mets to the bone presents to the emergency department for evaluation of multiple episodes of syncope today he finished his last episode of chemotherapy 10 days ago. He should get every 3-week cycles. He does have a history of hypertension for which she is on lisinopril and chlorthalidone. He is compliant with his medications. Typically states that his blood pressures run about 100/60. However over the last 2 days he has noted his blood pressures are in the 70s. He has had no fevers. Denies chest pain or shortness of air. No abdominal pain nausea or vomiting. On presentation to the emergency department he was afebrile. He had a heart rate in the 70s. Initial blood pressure was 70/40. Despite this pressure the patient was alert and well-appearing. He appeared well perfused. Initial care was focused on improving the blood pressure. Single large-bore IV was a placed and a liter of fluid was administered. This had a prompt rise in his blood pressure to 90/60. While this was occurring blood cultures were obtained and are pending. CBC, electrolytes and urinalysis were obtained. CBC does show marked leukocytosis with white count of over 17,000. Neutrophil predominant. No worrisome anemia. No thrombocytopenia. His electrolytes show mild acute kidney injury with a BUN of 37 and creatinine of 1.7, slightly higher than his known baseline chronic kidney disease. Patient was not acidotic. Lactate was not elevated. Chest x-ray showed no focal findings suggest opacity. His urinalysis was not consistent with infection. Given the concern for sepsis with associated hypotension he was administered a total of 2700 L of fluid here in the ER. However given the lack of lactic acidosis he did not present with a septic shock. Given the unclear source for sepsis broad-spectrum antibiotics were initiated with 1.5 g of vancomycin IV and 2 g of cefepime IV. Patient does not have an indwelling port. I did speak briefly with ERIN Henderson with [facility]. We briefly discussed this case. She would be interested in knowing what the blood cultures show as she is concerned that he could be seeding something from his belly. But she agrees with admission to the hospital with broad-spectrum antibiotics in the interim. A CT of the abdomen was completed. Though it does show extensive bony mets there was no acute intra-abdominal process identified. It should be noted that the patient is on 20 mg of lisinopril daily as well as 25 mg of chlorthalidone. Historically he seems to have appropriate good blood pressure control. It is likely going to be important to reduce or remove his antihypertensives moving forward as they may be contributing to his symptomatology. Subsequently I did speak with Dr. Burgess telehospitalist who graciously agrees to bring the patient in for further evaluation and management of his sepsis. Though he initially presented hypotensive this easily corrected with fluids and he remained normotensive and alert after the initial fluids were administered. As such the patient does not need to come into the ICU. I discussed the plan and findings with the patient who is in agreement for further evaluation and management here at [facility] - Sepsis Event Sepsis Onset Date: 02/12/23 Sepsis Onset Time: 18:45 Initial Hypotension: SBP less than 90 mmHg Possible source of Sepsis: Unknown Mental/Cognitive Status: Alert/Oriented X3, Normal for patient Reason for not giving 30ml/kg crystalloid fluids: Not in septic shock Capillary refill: Less than 2 seconds Peripheral Pulse Strength: 3+ Normal Peripheral Pulse Location: Femoral Bedside ultrasound performed: No Departure - Departure Disposition: 66 [facility] DC/Xfer Clinical Impression: Sepsis associated hypotension Sepsis Qualifiers: Sepsis type: sepsis due to unspecified organism Sepsis acute organ dysfunction status: with acute organ dysfunction Severe sepsis acute organ dysfunction type: acute renal failure Acute renal failure type: unspecified Severe sepsis shock status: without septic shock Qualified Code(s): A41.9 - Sepsis, unspecified organism Condition: Serious Discharge Date/Time: 02/12/23 21:15
[2023-02-12 18:26] LABS: BAND NEUTROPHILS % (MANUAL) 3 %; LYMPHOCYTES # (MANUAL) 0.4 10^3/uL (1.5-3.5); LYMPHOCYTES % (MANUAL) 2 %; METAMYELOCYTES % (MANUAL) 1 %; MONOCYTES # (MANUAL) 0.4 10^3/uL (0.0-1.0); NEUTROPHILS # (MANUAL) 16.6 10^3/uL (1.5-6.6)
[2023-02-12 18:27] LABS: DIFFERENTIAL COMMENT MANUAL DIFFERENTIAL; PLATELET ESTIMATE, MANUAL NORMAL (130-450,000) (NORMAL); PLATELET MORPHOLOGY NORMAL APPEARANCE (NORMAL); WBC MORPHOLOGY (MULTIPLE) 1+ TOXIC GRANULATION (NORMAL)
--- NOTE | 2023-02-12 18:30 | XRAY Report ---
PROCEDURE: Chest 1 View X-Ray INDICATIONS: Chest Pain TECHNIQUE: One view of the chest was acquired. COMPARISON: 07/24/2022 FINDINGS: Surgical changes and devices: None. Lungs and pleura: No pleural effusions or pneumothorax. Lungs are clear. Mediastinum: Mediastinal contours appear normal. Heart size is normal. Bones and chest wall: No suspicious bony lesions. Overlying soft tissues appear unremarkable. IMPRESSION: No acute process. Reviewed by: Errol Guillermo MD on 02/12/2023 6:29 PM PDT Approved by: Errol Guillermo MD on 02/12/2023 6:29 PM PDT Station ID: [id number]
[2023-02-12] MEDS ORDERED: iohexoL-300 100 ML VIAL ONE (18:38)
[2023-02-12] MEDS ORDERED: CEFEPIME 2 GM in SODIUM CHLORIDE 0.9% MINIBAG 100 ML IV STA (18:46)
[2023-02-12] MEDS ORDERED: VANCOMYCIN INJ 1.5 GM in SODIUM CHLORIDE 0.9% 500 ML IV STA (18:46)
[2023-02-12] MEDS ORDERED: iohexoL-300 100 ML VIAL IVP ONE (19:54)
--- NOTE | 2023-02-12 20:00 | CT Report ---
PROCEDURE: ABDOMEN/PELVIS W INDICATIONS: prostate cancer,, hypotension CONTRAST: 100 ML OMNI 300 TECHNIQUE: After the administration of intravenous contrast, 5 mm thick sections acquired from the diaphragms to the symphysis. 5 mm thick coronal and sagittal reformats were acquired. For radiation dose reducti on, the following was used: automated exposure control, adjustment of mA and/or kV according to marcelina ent size. COMPARISON: 11/09/2022 CT FINDINGS: Image quality: Excellent. Lung bases and heart: Unremarkable. Liver: No change in scattered small hypodense hepatic lesions Gallbladder and biliary tree: Within normal limits Spleen: No splenomegaly. Pancreas: No pancreatic ductal dilation. Adrenals: No adrenal nodule. Kidneys and ureters: No hydronephrosis. No renal cystic lesion which requires follow up. No solid mas s. Bowel and peritoneum: No bowel distension. No pathologic free fluid. Lymph nodes: No central or retroperitoneal adenopathy. Vessels: No infrarenal aortic aneurysm. PELVIS No change in central pelvic cystic focus interposed between the prostate and rectum. Reproductive organs: Unremarkable. Bladder: Unremarkable. Lymph nodes: Unremarkable. Bones: Multifocal osseous foci throughout the thoracolumbar spine and pelvis, as before. Other: No significant ventral or inguinal hernia. IMPRESSION: 1. No acute process. 2. No change in central pelvic cystic focus, possibly indicating infection or neoplasm. 3. No change in multifocal bony metastatic disease. Reviewed by: Errol Guillermo MD on 02/12/2023 7:59 PM PDT Approved by: Errol Guillermo MD on 02/12/2023 7:59 PM PDT Station ID: [id number]
[2023-02-12] MEDS ORDERED: SODIUM CHLORIDE 0.9% 2,789.58 ML IV STA (20:17)
[2023-02-12 20:32] LABS: BILIRUBIN,URINE NEGATIVE (NEGATIVE); GLUCOSE, URINE (UA) NEGATIVE (NEGATIVE); KETONES,URINE (UA) NEGATIVE (NEGATIVE); LEUKOCYTE ESTERASE, URINE NEGATIVE (NEGATIVE); NITRITE,URINE NEGATIVE (NEGATIVE); OCCULT BLOOD,URINE NEGATIVE (NEGATIVE); PROTEIN,URINE NEGATIVE (NEGATIVE); UROBILINOGEN,URINE 0.2 (NORMAL) E.U./dL (NORMAL)
[2023-02-12 20:33] LABS: CLARITY,URINE CLEAR (CLEAR)
--- NOTE | 2023-02-12 21:06 | HISTORY & PHYSICAL EXAMINATION ---
Chief Complaint - Chief Complaint Chief Complaint: Fainting, low BP History of Present Illness - History of Present Illness HPI Comment/Other: 67 y old male with PMH HTN,Metastatic breast cancer on chemo, last chemo 10 days ago, BIBA due to fainting and low BP. As per pt, he takes chlorthalidone and lisinopril for HTN and he took these today as well. Denies LOC or head injury. Denies fever, [place], Cough, chest pain, SOB, nausea, vomiting, diarrhea, symptoms On presenation, pt was afebrile, hypotensive Labs showed WBC 17, BUN 37, [employer] 1.7. Lactic acid 1.[address] abdomen/pelvis showed no acute findings In ER, pt received IVF and Cefepime and vanco His BP improved Pt is admitted due to severe sepsis, hypotension, Fainting, BECKY, dehydration. History - Past Medical History Cardiovascular: reports: Hypertension Respiratory: reports: None Neuro: reports: None Endocrine/Autoimmune: reports: None : reports: Other HEENT: reports: None Psych: reports: Anxiety Derm: reports: None MRSA Hx?: No Meds/Allgy - Home Medications Home Medications: Ambulatory Orders Medication Instructions Recorded Confirmed Chlorthalidone 25 mg ORAL DAILY 11/09/22 11/09/22 Finasteride [Proscar] 5 mg PO DAILY 11/09/22 11/09/22 Gabapentin [Neurontin] 100 mg PO HS 11/09/22 11/09/22 LORazepam [Ativan] 0.5 mg PO HS 11/09/22 11/09/22 Medroxyprogesterone Acetate 10 mg PO BID 11/09/22 11/09/22 [Provera] Potassium Chloride 20 meq PO DAILY 11/09/22 11/09/22 Tamsulosin HCl [Flomax] 0.4 mg ORAL DAILY 11/09/22 11/09/22 Trazodone HCl 100 mg PO HS 11/09/22 11/09/22 lisinopriL [Lisinopril] 20 mg ORAL DAILY 11/09/22 11/09/22 oxyCODONE [Roxicodone] 5 mg PO Q6HR PRN 11/09/22 11/09/22 - Allergies Allergies/Adverse Reactions: Allergies Allergy/AdvReac Type Severity Reaction Status Date / Time No Known Drug Allergies Allergy Verified 02/12/23 17:38 Review of Systems - Constitutional Constitutional: reports: Weakness - Other Findings Other Findings: 10 point systems were reviewed and were negative except mentioned in HPI Exam - Vital Signs Vital Signs: Vital Signs x48h Temp Pulse Resp BP Pulse Ox 02/12/23 20:30 81 16 122/74 94 02/12/23 20:17 98.3 C H 75 16 131/68 H 02/12/23 20:11 73 16 02/12/23 18:46 75 16 114/70 97 02/12/23 18:08 73 16 99/54 L 97 02/12/23 17:35 36.6 C 94 20 73/47 L 98 - Physical Exam General Appearance: positive: No acute distress, Alert Eyes Bilateral: positive: Normal inspection ENT: positive: ENT inspection nml Neck: positive: Nml inspection Respiratory: positive: Breath sounds nml Cardiovascular: positive: Regular rate & rhythm Abdomen: positive: Non-tender, Nml bowel sounds Skin: positive: No rash Extremities: positive: No pedal edema Neurologic/Psychiatric: positive: Oriented x3, Motor nml Conclusion/Plan - Lab Results Fish Bones: 02/12/23 17:54 02/12/23 17:54 - Other Other Results/Comments: A: Severe sepsis Hypotension Fainting Near syncope Leukocytosis Dehydration BECKY H/O HTN Metastatic prostate cancer , on chemo Plan: Admit to Med surg Tele monitoring Follow culture NS @ 125 cc/h Start zosyn and vanco Check troponin Echocardiogram Hold chlorthalidone and lisinopril Repeat CBC, CMP in am Supportive care DVT prophylaxic: SCD Full code Pt is admitted as inpatient as more than 2 midnight stay is expected
[2023-02-12] MEDS: SODIUM CHLORIDE 0.9% 1,000 ML IV SCH (22:12)
[2023-02-12] MEDS: PIPERACILLIN/TAZOBACTAM 3.375 GM in SODIUM CHLORIDE 0.9% MINIBAG 100 ML IV SCH (22:12)
[2023-02-12] MEDS: SODIUM CHLORIDE FLUSH 0.9% 10 ML SYRINGE IVP SCH (22:13)
[2023-02-13 04:46] LABS: BASOPHILS % (AUTO) 0.4 %; HGB - HEMOGLOBIN 9.2 g/dL (14.0-18.0); LYMPHOCYTES % (AUTO) 4.5 %; MEAN CORPUSCULAR HEMOGLOBIN 30.2 pg (27.0-31.0); MEAN CORPUSCULAR HGB CONC 31.7 g/dL (32.0-36.0); MEAN CORPUSCULAR VOLUME 95.1 fL (80.0-94.0); MEAN PLATELET VOLUME 8.9 fL (7.4-11.4); MONOCYTES % (AUTO) 5.5 %; NEUTROPHILS % (AUTO) 83.3 %; PLT - PLATELET COUNT 218 10^3/uL (130-450); RED BLOOD COUNT 3.05 10^6/uL (4.70-6.10); RED CELL DISTRIBUTION WIDTH 19.2 % (12.0-15.0); WHITE BLOOD COUNT 12.8 x10^3/uL (4.8-10.8)
[2023-02-13 04:57] LABS: ABNORMAL LYMPHS % (MANUAL) 0 %
[2023-02-13 05:00] LABS: ALBUMIN 2.5 g/dL (3.2-5.5); BILIRUBIN,TOTAL 0.5 mg/dL (0.2-1.0); CALCIUM 7.8 mg/dL (8.5-10.3); CREATININE 1.3 mg/dL (0.6-1.2); POTASSIUM 3.2 mmol/L (3.5-5.0); TOTAL PROTEIN 4.9 g/dL (6.7-8.2)
[2023-02-13 05:33] LABS: BAND NEUTROPHILS % (MANUAL) 7 %; EOSINOPHILS # (MANUAL) 0.3 10^3/uL (0-0.7); LYMPHOCYTES # (MANUAL) 0.9 10^3/uL (1.5-3.5); LYMPHOCYTES % (MANUAL) 7 %; MONOCYTES # (MANUAL) 0.8 10^3/uL (0.0-1.0); NEUTROPHILS # (MANUAL) 10.9 10^3/uL (1.5-6.6); RBC MORPHOLOGY (MULTIPLE) NORMAL APPEARANCE (NORMAL)
[2023-02-13 05:34] LABS: DIFFERENTIAL COMMENT MANUAL DIFFERENTIAL; PLATELET ESTIMATE, MANUAL NORMAL (130-450,000) (NORMAL)
[2023-02-13] MEDS: PIPERACILLIN/TAZOBACTAM 3.375 GM in SODIUM CHLORIDE 0.9% MINIBAG 100 ML IV SCH ×3 (05:59→22:39)
[2023-02-13] MEDS: SODIUM CHLORIDE 0.9% 1,000 ML IV SCH ×2 (06:00→16:34)
[2023-02-13] MEDS ORDERED: LACTULOSE 10 GM /15 ML UDC PO PRN (07:55)
[2023-02-13] MEDS ORDERED: POTASSIUM CHLOR 10 MEQ/100 ML 10 MEQ/100 ML BAG IV ONE (08:21)
--- NOTE | 2023-02-13 08:54 | PROVIDER PROGRESS NOTE ---
Assessment/Plan - Problem List (1) Sepsis associated hypotension Assessment/Plan: He presented with hypotension, and leukocytosis w/ WBC 17.5 and a L shift, but no elevated lactic acid level or bilirubin, no obvious source on a physical exam, but he has continued finding of the mass in his pelvis, which was read as a possible abscess, by the Radiologist Plan: Continue with empiric IV antibiotics Zosyn and Vanco for now Await blood culture results Continue with IV fluids, but will decrease the rate Will obtain orthostatic vital sign checks Continue to hold his home BP meds, but will order his 2 BPH meds starting tomorrow, which also drop BP After his medication list was reconciled by pharmacy, we can see takes Prednisone 5 mg twice daily. Will give stress dose steroids (Hydrocortisone 100 mg tid) for 3 days during this infection, since he is steroid-dependent and might be Addisonian, adding to hypotension, during the stress of this infection. Then will resume his oral Prednisone after 3 days. I updated the pt re all this (2) Pelvic mass in a male CT abdomen was done after ED provider spoke yesterday to an on-call Oncologist from [facility] who was concerned that he is "seeding from abdominal" or retroperitoneal source. The CT showed his mass, which is between the rectum and prostate, which has been seen before. The Radiologist read this as the possibility of being an abscess. Patient told me today that he gets his cancer care at [facility] but also goes t o a Urologist at , Dr. Nacho Rutledge. Plan: Continue with empiric antibiotics, since this could be an abscess Await blood culture results to tailor antibx I will try to reach his Urologist Dr. Rutledge on Wednesday for recommendations (today is Wednesday) (3) Syncope He gave me the details: Yesterday he was walking and felt lightheaded, had to hold onto to his car, a friend brought him a chair and he stabilized after sitting for 15 minutes but then when he stood up was near syncopal. He tried measuring his BP and kept getting error and then finally it read 50/32 and he then asked his friend to drive him into the ER. The friend had to support him under his arms because he could hardly walk in to the hospital. He had a documented low blood pressure at presentation here of 70/30, which improved with iv fluids Plan: Continue to monitor on telemetry to watch for arrhythmias Obtain an Echocardiogram to evaluate for structural heart disease (we have no Digital Business Analyst available here until February 16 which is 4 days away). Continue with IV fluids Continue to hold his 2 blood pressure meds, HCTZ and lisinopril. I explained to the pt that he probably does not need HCTZ at all, and that he probably needs a lower dose of lisinopril or possibly no lisinopril either, going forward. (4) Acute on CKD All labs were reviewed including his past lab work in this EMR. The patient usually runs a creatinine of 1.2-1.3. He presented here with a creatinine of 1.7 and after IV fluids that has improved to 1.3 Plan: Avoid nephrotoxins Continue with IV fluids, will decrease the rate Follow BMP daily (5) H/O HTN Plan: Plan: Continue to hold his 2 blood pressure meds, HCTZ and lisinopril (6) Hypokalemia I suspect this is from potassium losses from being on HCTZ Plan: Because he has CKD, will give only 1K rider for potassium replacement Follow BMP daily (7) Prostate cancer with mets to bone As per Hx. He is on chemo which makes him immunocompromised and at risk for infections. It is also the cause of constipation. This is prostate cancer care at [facility], 3 times a month. No one at [facility] has addressed the mass in his pelvis for a long time, he said today - Current Meds Current Meds: Current Medications Generic Name Dose Route Start Last Admin Trade Name Victorinoq PRN Reason Stop Dose Admin Sodium Chloride 1,000 mls @ 125 mls/hr 02/12/23 21:00 02/13/23 06:00 Normal Saline 0.9% IV 125 mls/hr .Q8H [place] Administration Piperacillin Sod/Tazobactam 100 mls @ 25 mls/hr 02/12/23 22:00 02/13/23 05:59 Sod 3.375 gm/ Sodium Chloride IV 25 mls/hr Q8HR [place] Administration Sodium Chloride 10 ml 02/13/23 01:00 02/12/23 22:13 Sodium Chloride Flush 0.9% 10 Ml Syringe IVP 10 ml 0100,0900,1700 [place] Administration - Lab Result Fish Bone Diagrams: 02/13/23 04:40 02/13/23 04:40 - Diagnostic Imaging Results Diagnostic Imaging Results: Final report reviewed - Additional Planning My Orders: My Active Orders 02/13/23 07:55 Lactulose [Enulose] 10 gm PO DAILY PRN 02/13/23 08:21 Potassium Chlor 10 Meq/100 ml [Potassium Chloride] 10 meq in 100 ml IV ONCE 02/13/23 08:28 Telemetry- [RC] Q4HR 02/14/23 05:00 BMP - BASIC METABOLIC PANEL [CHEM] DAILYLAB CBC - COMP BLD CT W/AUTO DIFF [HEME] DAILYLAB MAGNESIUM [CHEM] DAILYLAB 02/15/23 05:00 BMP - BASIC METABOLIC PANEL [CHEM] DAILYLAB CBC - COMP BLD CT W/AUTO DIFF [HEME] DAILYLAB 02/16/23 05:00 BMP - BASIC METABOLIC PANEL [CHEM] DAILYLAB CBC - COMP BLD CT W/AUTO DIFF [HEME] DAILYLAB 02/16/23 07:00 Echo Transthoracic Complete [ECHO] Stat 02/17/23 05:00 BMP - BASIC METABOLIC PANEL [CHEM] DAILYLAB CBC - COMP BLD CT W/AUTO DIFF [HEME] DAILYLAB Subjective - Subjective Patient Reports: Feeling Better, No Complaints, Other (His chemo causes constipation, last time after chemo no BM for 10 days, then finally lactulose gave him a bowel movement 3 days ago) Objective Vital Signs: Vital Signs - 24 hr 02/12/23 02/12/23 02/12/23 17:35 18:08 18:46 Temperature 36.6 C Heart Rate 94 73 75 Heart Rate [ Monitoring electrodes] Respiratory 20 16 16 Rate Blood Pressure 73/47 L 99/54 L 114/70 Blood Pressure [Left Brachial artery] Blood Pressure [Right Brachial artery] O2 Saturation 98 97 97 02/12/23 02/12/23 02/12/23 20:11 20:17 20:30 Temperature 36.8 C Heart Rate 73 75 81 Heart Rate [ Monitoring electrodes] Respiratory 16 16 16 Rate Blood Pressure 131/68 H 122/74 Blood Pressure [Left Brachial artery] Blood Pressure [Right Brachial artery] O2 Saturation 94 02/12/23 02/13/23 02/13/23 21:37 00:24 03:46 Temperature 36.8 C 36.3 C L 36.7 C Heart Rate Heart Rate [ 69 72 70 Monitoring electrodes] Respiratory 18 16 20 Rate Blood Pressure Blood Pressure 133/67 H [Left Brachial artery] Blood Pressure 114/66 121/62 [Right Brachial artery] O2 Saturation 98 97 96 02/13/23 08:00 Temperature 36.9 C Heart Rate Heart Rate [ 70 Monitoring electrodes] Respiratory 20 Rate Blood Pressure Blood Pressure [Left Brachial artery] Blood Pressure 130/78 [Right Brachial artery] O2 Saturation 97 Oxygen O2 Source Room air I&O (Last 24 Hrs): Intake and Output Totals x24h 02/11/23 02/12/23 02/13/23 23:59 23:59 23:59 Intake Total 2954 1125 Output Total 350 Balance 2954 775 General: Alert, Oriented x3, No acute distress HEENT: Mucous membr. moist/pink Neck: Supple, No JVD Neuro: Alert, Non Focal Cardiovascular: Regular rate, No murmurs Respiratory: No respiratory distress, Breath sounds nml Abdomen: Normal bowel sounds, Soft, No tenderness Extremities: No clubbing, No edema, No tenderness/swelling - Results Results: Laboratory Results WBC 12.8 x10^3/uL (4.8-10.8) H 02/13/23 04:40 RBC 3.05 10^6/uL (4.70-6.10) L 02/13/23 04:40 Hgb 9.2 g/dL (14.0-18.0) L 02/13/23 04:40 Hct 29.0 % (42.0-52.0) L 02/13/23 04:40 MCV 95.1 fL (80.0-94.0) H 02/13/23 04:40 MCH 30.2 pg (27.0-31.0) 02/13/23 04:40 MCHC 31.7 g/dL (32.0-36.0) L 02/13/23 04:40 RDW 19.2 % (12.0-15.0) H 02/13/23 04:40 Plt Count 218 10^3/uL (130-450) 02/13/23 04:40 MPV 8.9 fL (7.4-11.4) 02/13/23 04:40 Neut # (Auto) Not Reportable 02/13/23 04:40 Lymph # (Auto) Not Reportable 02/13/23 04:40 [place] # (Auto) Not Reportable 02/13/23 04:40 Eos # (Auto) Not Reportable 02/13/23 04:40 Baso # (Auto) Not Reportable 02/13/23 04:40 Absolute Nucleated RBC Not Reportable 02/13/23 04:40 Total Counted 100 02/13/23 04:40 Band Neuts % (Manual) 7 % (0-10) 02/13/23 04:40 Abnorm Lymph % (Manual) 0 % 02/13/23 04:40 Metamyelocytes % 1 % (-0) H 02/12/23 17:54 Nucleated RBC % Not Reportable 02/13/23 04:40 Neutrophils # (Manual) 10.9 10^3/uL (1.5-6.6) H 02/13/23 04:40 Lymphocytes # (Manual) 0.9 10^3/uL (1.5-3.5) L 02/13/23 04:40 Monocytes # (Manual) 0.8 10^3/uL (0.0-1.0) 02/13/23 04:40 Eosinophils # (Manual) 0.3 10^3/uL (0-0.7) 02/13/23 04:40 Basophils # (Manual) 0.0 10^3/uL (0-0.1) 02/13/23 04:40 Differential Comment MANUAL DIFFERENTIAL 02/13/23 04:40 WBC Morphology 1+ TOXIC GRANULATION (NORMAL) 02/12/23 17:54 Platelet Estimate NORMAL (130-450,000) (NORMAL) 02/13/23 04:40 Platelet Morphology NORMAL APPEARANCE (NORMAL) 02/12/23 17:54 RBC Morph Micro Appear NORMAL APPEARANCE (NORMAL) 02/13/23 04:40 Sodium 139 mmol/L (135-145) 02/13/23 04:40 Potassium 3.2 mmol/L (3.5-5.0) L 02/13/23 04:40 Chloride 111 mmol/L (101-111) 02/13/23 04:40 Carbon Dioxide 23 mmol/L (21-32) 02/13/23 04:40 Anion Gap 5.0 (6-13) L 02/13/23 04:40 BUN 34 mg/dL (6-20) H 02/13/23 04:40 Creatinine 1.3 mg/dL (0.6-1.2) H 02/13/23 04:40 Estimated GFR (MDRD) 55 (>89) L 02/13/23 04:40 Glucose 133 mg/dL (70-100) H 02/13/23 04:40 Lactic Acid 1.9 mmol/L (0.5-2.2) 02/12/23 18:07 Calcium 7.8 mg/dL (8.5-10.3) L 02/13/23 04:40 Total Bilirubin 0.5 mg/dL (0.2-1.0) 02/13/23 04:40 AST 16 IU/L (10-42) 02/13/23 04:40 ALT 27 IU/L (10-60) 02/13/23 04:40 Alkaline Phosphatase 104 IU/L (42-121) 02/13/23 04:40 Troponin I High Sens 9.7 ng/L (2.3-19.7) 02/12/23 21:08 Total Protein 4.9 g/dL (6.7-8.2) L 02/13/23 04:40 Albumin 2.5 g/dL (3.2-5.5) L 02/13/23 04:40 Globulin 2.4 g/dL (2.1-4.2) 02/13/23 04:40 Albumin/Globulin Ratio 1.0 (1.0-2.2) 02/13/23 04:40 Lipase 43 U/L (22-51) 02/12/23 17:54 Urine Color YELLOW 02/12/23 20:21 Urine Clarity CLEAR (CLEAR) 02/12/23 20:21 Urine pH 6.0 PH (5.0-7.5) 02/12/23 20:21 Ur Specific Lead 1.010 (1.002-1.030) 02/12/23 20:21 Urine Protein NEGATIVE mg/dL (NEGATIVE) 02/12/23 20:21 Urine Glucose (UA) NEGATIVE mg/dL (NEGATIVE) 02/12/23 20:21 Urine Ketones NEGATIVE mg/dL (NEGATIVE) 02/12/23 20:21 Urine Occult Blood NEGATIVE (NEGATIVE) 02/12/23 20:21 Urine Nitrite NEGATIVE (NEGATIVE) 02/12/23 20:21 Urine Bilirubin NEGATIVE (NEGATIVE) 02/12/23 20:21 Urine Urobilinogen 0.2 (NORMAL) E.U./dL (NORMAL) 02/12/23 20:21 Ur Leukocyte Esterase NEGATIVE (NEGATIVE) 02/12/23 20:21 Ur Microscopic Review NOT INDICATED 02/12/23 20:21 Urine Culture Comments NOT INDICATED 02/12/23 20:21 Blood Type O NEGATIVE 02/12/23 18:07 Blood Type Recheck O NEGATIVE 02/12/23 17:54 Antibody Screen NEGATIVE 02/12/23 18:07 Sepsis Event Note (H) - Evaluation Possible source of Sepsis: positive: Unknown
[2023-02-13] MEDS: SODIUM CHLORIDE FLUSH 0.9% 10 ML SYRINGE IVP SCH ×2 (08:55→16:34)
[2023-02-13] MEDS: VANCOMYCIN INJ 1 GM in SODIUM CHLORIDE 0.9% 250 ML IV SCH ×2 (08:56→19:52)
--- NOTE | 2023-02-13 09:09 | PHARMACY PROGRESS NOTE ---
- Best Possible Medication History Admit Date and Time: 02/12/232047 Processed by: Pharmacy Medication History completed: Yes Patient Interview: Completed Secondary Source(s): Written medication list, Pharmacy records, Insurance records As the person ultimately responsible for medication therapy, providers are able to order a medication from an existing home medication list in [facility] via the "Reconcile Routine" prior to Confirmation of that medication by direct support professional. Such practice is discouraged except when the physician, in their clinical judgment, deems that a medical need exists for a medication without regard to previous use.
[2023-02-13] MEDS: fentaNYL 12 MCG PATCH TOP SCH (10:51)
[2023-02-13] MEDS: FINASTERIDE 5 MG TABLET PO SCH (11:09)
[2023-02-13] MEDS: TAMSULOSIN 0.4 MG CAPSULE PO SCH (11:09)
[2023-02-13] MEDS: ASPIRIN EC 325 MG TABLET PO SCH (11:13)
[2023-02-13] MEDS: ONDANSETRON 4 MG/2 ML VIAL IVP PRN (13:16)
[2023-02-13] MEDS: SODIUM CHLORIDE FLUSH 0.9% 10 ML SYRINGE IVP PRN (13:17)
[2023-02-13] MEDS: LACTULOSE 10 GM /15 ML UDC PO SCH ×2 (13:26→22:38)
[2023-02-13] MEDS: ACETAMINOPHEN 500 MG TABLET PO SCH ×2 (13:26→22:39)
[2023-02-13] MEDS: HYDROCORTISONE SUCCINATE 100 MG/2 ML VIAL IVP SCH ×2 (13:27→22:39)
[2023-02-13] MEDS ORDERED: VANCOMYCIN INJ 1.5 GM in SODIUM CHLORIDE 0.9% 500 ML IV SCH (19:00)
[2023-02-13] MEDS: ATORVASTATIN 40 MG TABLET PO SCH (22:38)
[2023-02-13] MEDS: traZODone 50 MG TABLET PO SCH (22:38)
[2023-02-14] MEDS: SODIUM CHLORIDE FLUSH 0.9% 10 ML SYRINGE IVP SCH ×3 (01:05→20:13)
[2023-02-14] MEDS: SODIUM CHLORIDE 0.9% 1,000 ML IV SCH (01:22)
[2023-02-14 05:19] LABS: CREATININE 1.1 mg/dL (0.6-1.2); MAGNESIUM 1.7 mg/dL (1.7-2.8); POTASSIUM 3.4 mmol/L (3.5-5.0)
[2023-02-14 05:35] LABS: BASOPHILS % (AUTO) 0.3 %; EOSINOPHILS # (AUTO) 0.1 10^3/uL (0.0-0.7); EOSINOPHILS % (AUTO) 0.4 %; HCT - HEMATOCRIT 29.3 % (42.0-52.0); HGB - HEMOGLOBIN 9.3 g/dL (14.0-18.0); LYMPHOCYTES # (AUTO) 0.5 10^3/uL (1.5-3.5); LYMPHOCYTES % (AUTO) 4.1 %; MEAN CORPUSCULAR HEMOGLOBIN 29.9 pg (27.0-31.0); MEAN CORPUSCULAR HGB CONC 31.7 g/dL (32.0-36.0); MEAN CORPUSCULAR VOLUME 94.2 fL (80.0-94.0); MEAN PLATELET VOLUME 9.3 fL (7.4-11.4); MONOCYTES # (AUTO) 0.5 10^3/uL (0.0-1.0); MONOCYTES % (AUTO) 3.6 %; NEUTROPHILS # (AUTO) 11.7 10^3/uL (1.5-6.6); NEUTROPHILS % (AUTO) 88.2 %; PLT - PLATELET COUNT 244 10^3/uL (130-450); RED BLOOD COUNT 3.11 10^6/uL (4.70-6.10); RED CELL DISTRIBUTION WIDTH 18.6 % (12.0-15.0); WHITE BLOOD COUNT 13.3 x10^3/uL (4.8-10.8)
[2023-02-14] MEDS: LACTULOSE 10 GM /15 ML UDC PO SCH (06:40)
[2023-02-14] MEDS: ONDANSETRON 4 MG/2 ML VIAL IVP PRN (07:10)
[2023-02-14] MEDS: PANTOPRAZOLE 40 MG TABLET PO SCH (07:10)
[2023-02-14] MEDS: PIPERACILLIN/TAZOBACTAM 3.375 GM in SODIUM CHLORIDE 0.9% MINIBAG 100 ML IV SCH ×3 (07:10→21:43)
[2023-02-14] MEDS: HYDROCORTISONE SUCCINATE 100 MG/2 ML VIAL IVP SCH ×3 (07:10→21:43)
[2023-02-14] MEDS: ACETAMINOPHEN 500 MG TABLET PO SCH ×3 (07:10→21:42)
[2023-02-14] MEDS ORDERED: POTASSIUM BICARB 25 MEQ TABLET PO ONE (07:53)
[2023-02-14] MEDS: VANCOMYCIN INJ 1 GM in SODIUM CHLORIDE 0.9% 250 ML IV SCH ×2 (08:13→20:08)
[2023-02-14] MEDS: ASPIRIN EC 325 MG TABLET PO SCH (08:13)
[2023-02-14] MEDS: TAMSULOSIN 0.4 MG CAPSULE PO SCH (08:14)
[2023-02-14] MEDS: FINASTERIDE 5 MG TABLET PO SCH (08:14)
--- NOTE | 2023-02-14 08:33 | XRAY Report ---
PROCEDURE: Chest 1 View X-Ray INDICATIONS: Shortness of breath after 2 days of iv fluids TECHNIQUE: One view of the chest was acquired. COMPARISON: 02/12/2023 FINDINGS: Surgical changes and devices: None. Lungs and pleura: Streaky bibasilar opacities redemonstrated. Pulmonary vasculature appears congeste d. No large pleural effusion or pneumothorax. Mediastinum: Cardiac silhouette is enlarged. Bones and chest wall: No suspicious bony lesions. Overlying soft tissues appear unremarkable. IMPRESSION: Findings compatible with mild fluid overload/CHF. Nonspecific bibasilar opacities present, possible a telectasis or scarring, edema or aspiration or pneumonia difficult to exclude. Reviewed by: Jamari Ruiz MD on 02/14/2023 8:32 AM PDT Approved by: Jamari Ruiz MD on 02/14/2023 8:32 AM PDT Station ID: [id number]
[2023-02-14] MEDS ORDERED: ASPIRIN EC 325 MG TABLET PO SCH (09:00)
[2023-02-14] MEDS ORDERED: TAMSULOSIN 0.4 MG CAPSULE PO SCH (09:00)
[2023-02-14] MEDS ORDERED: FINASTERIDE 5 MG TABLET PO SCH (09:00)
--- NOTE | 2023-02-14 09:18 | PROVIDER PROGRESS NOTE ---
Assessment/Plan - Problem List (1) SOB (shortness of breath) Assessment/Plan: Matt RN noted that he gets tachypneic easily. He reported to me that he is SOB w/ even minimal activity today. On exam today, he does not have wheezing, rales or rhonchi. He has an inspiratory rattle upper airway sound. Chest x-ray was ordered and showed bibasilar volume overload versus atelectasis versus infiltrate. Plan: Stop IV fluids Check BNP today and tomorrow We will obtain a bedside Echo to check LV function and diastolic function>> I did the Echo. The patient has LVH with preserved LVEF and mild diastolic dys function present (see separate report labeled Cross-cover Note). We will give Lasix p.o. today and for the next 2 days. I suspect this man has a very narrow range of proper hydration for him, and I told him this; if he is too dry he is hypotensive, if he has too much fluid he gets pulmonary edema. (2) Leukocytosis He presented with hypotension, and leukocytosis w/ WBC 17.5 and a L shift, but no elevated lactic acid level or bilirubin, no obvious source on a physical exa m, but he has a continued finding of the mass in his pelvis, which was read as a possible abscess, by the Radiologist. He was started on empiric IV antibiotics. All labs were reviewed. His WBC has decreased from 17.5 down to 13. Blood cultures are negative to date. Plan: Continue with empiric IV antibiotics Zosyn and Vanco for now Await blood culture results Follow CBC daily (3) Diarrhea Normally he is "always constipated" and he says and he needs Lactulose daily or up to 3 times daily to have a BM. Since admission, he had a normal BM yesterday then today has had 3 liquid diarrheal stools (this is after starting antibiotics). There is no pain or tenderness. Plan: Stop his usual Lactulose as a scheduled med (which he takes for severe constipation caused by chemo), and made it 3 times daily prn constipation. We will check his stool for C. difficile If C. difficile is negative, will give Imodium or Miralax (4) Pelvic mass in a male CT abdomen was done after ED provider spoke to an on-call Oncologist from [facility] who was concerned that he is "seeding from his abdomen" or retroperitoneal source. The CT showed this mass, which is between the rectum and prostate, which has been seen before. The Radiologist read this as the possibility of being an abscess. Patient told me today that he gets his cancer care at [facility] but also goes to a Urologist at , Dr. Nacho Rutledge. Plan: Continue with empiric antibiotics, in case this could be an abscess Await blood culture results to tailor antibx I will try to reach his Urologist Dr. Rutledge on Wednesday for recommendations (today is Wednesday). (5) Hypokalemia I suspect this is from potassium losses from being on HCTZ Plan: Because he has CKD, will give only 1K rider for potassium replacement Follow BMP daily (6) Sleep apnea on CPAP The patient remembered today, to tell me about this about his history. He does use a CPAP unit and does not have that CPAP machine here. There is nobody that has a king to his RV where he lives, to bring in his CPAP Plan: Will order O2 at 2 L per nasal cannula, just at night, since that is what was done at 2 mos ago, he said, when he was there for a TIA (7) Acute on CKD Resolved All labs were reviewed including his past lab work in this EMR. The patient usually runs a creatinine of 1.2-1.3. He presented here with a creatinine of 1.7 and after IV fluids that has improved to 1.3>> then 1.1 today. IV fluids are being stopped today due to SOB and CHF on CXR Plan: Avoid nephrotoxins Monitor BMP daily. (8) Syncope He gave me the details: On the day of admission, he was walking outside and felt lightheaded, had to hold onto to his car, a friend brought him a chair and he stabilized after sitting for 15 minutes but then when he stood up, he was near syncopal. He wnt inside his RV (where he lives) and tried measuring his BP and kept getting "error" results, and then finally it read 50/32 and he then asked his friend to drive him into the ER. The friend had to support him under his arms because he could hardly walk in to the hospital, he said. He had a documented low blood pressure at presentation here of 70/30, which has improved with iv fluids Plan: Continue to monitor on telemetry to watch for arrhythmias Obtain an Echocardiogram to evaluate for structural heart disease (we have no Patent Drafter available here until February 16 which is 3 days away). Continue to hold his 2 blood pressure meds, HCTZ and lisinopril. I explained to the pt that he probably does not need both meds and that he probably needs a lower dose of lisinopril and possibly no HCTZ Will check orthostatic VS (9) HTN Plan: Plan: Continue to hold his 2 blood pressure meds, HCTZ and lisinopril (10) Hx of TIA The patient remember today to tell me about this in his history. Two months ago he lost vision in his right eye and it cleared up by the next day. That next day he went for chemotherapy and reported the symptoms and was sent to the ER and admitted to where he underwent a work-up for TIA. He reports that there were no major findings. He is on daily aspirin now. Plan: All his usual medications from home have been continued here (11) Prostate cancer with mets to bone As per Hx. He is on chemo which makes him immunocompromised and at risk for infections. He gets his prostate cancer care at [facility], 3 times a month. No one at [facility] has addressed the mass in his pelvis for a long time, he said. He sees a Urologist at , and that provider has not addressed that mass for a while either. (12) Sepsis associated hypotension Assessment/Plan: He presented with hypotension, and leukocytosis w/ WBC 17.5 and a L shift, but no elevated lactic acid level or bilirubin, no obvious source on a physical exam, but he has continued finding of the mass in his pelvis, which was read as a possible abscess, by the Radiologist He is no longer hypotensive. 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 He did feel "hyperactive" on this higher dose of steroids, which she knew he would, but he was able to sleep. Stop time for hydrocortisone has been entered as well as a start time for resuming his Prednisone. - Current Meds Current Meds: Current Medications Generic Name Dose Route Start Last Admin Trade Name Freq PRN Reason Stop Dose Admin Acetaminophen 1,000 mg 02/13/23 14:00 02/14/23 07:10 Acetaminophen 500 Mg Tablet PO 1,000 mg TID PHOENIX Administration Aspirin 325 mg 02/13/23 10:40 02/14/23 08:13 Aspirin Ec 325 Mg Tablet PO 325 mg DAILY PHOENIX Administration Atorvastatin Calcium 40 mg 02/13/23 21:00 02/13/23 22:38 Atorvastatin 40 Mg Tablet PO 40 mg QPM PHOENIX Administration Fentanyl 1 patch 02/13/23 11:00 02/13/23 10:51 Fentanyl 12 Mcg Patch TOP 1 patch Q3D PHOENIX Administration Finasteride 5 mg 02/13/23 10:41 02/14/23 08:14 Finasteride 5 Mg Tablet PO 5 mg DAILY PHOENIX Administration Hydrocortisone Sodium Succinate 100 mg 02/13/23 14:00 02/14/23 07:10 Hydrocortisone Succinate 100 Mg/2 Ml Vial IVP 02/16/23 00:01 100 mg TID PHOENIX Administration Piperacillin Sod/Tazobactam 100 mls @ 25 mls/hr 02/12/23 22:00 02/14/23 07:10 Sod 3.375 gm/ Sodium Chloride IV 25 mls/hr Q8HR PH[place]ENIX Administration Vancomycin HCl 1 gm/ Sodium 250 mls @ 166.667 mls/hr 02/13/23 08:00 02/14/23 08:13 Chloride IV 166.6 mls/hr Q12H PH[place]ENIX Administration Lactulose 10 gm 02/13/23 07:55 02/13/23 08:55 Lactulose 10 Gm /15 Ml Udc PO 10 gm DAILY PRN Administration Constipation Medroxyprogesterone Acetate 10 mg 02/13/23 11:00 02/14/23 08:14 Medroxyprogesterone 2.5 Mg Tablet PO 10 mg BID PH[place]ENIX Administration Ondansetron HCl 4 mg 02/12/23 20:48 02/14/23 07:10 Ondansetron 4 Mg/2 Ml Vial IVP 4 mg Q6HR PRN Administration Nausea / Vomiting Pantoprazole Sodium 40 mg 02/14/23 07:00 02/14/23 07:10 Pantoprazole 40 Mg Tablet PO 40 mg QDAC PH[place]ENIX Administration Sodium Chloride 10 ml 02/12/23 20:48 02/13/23 13:17 Sodium Chloride Flush 0.9% 10 Ml Syringe IVP 10 ml PRN PRN Administration NEEDED PER PROVIDER ORDERS Sodium Chloride 10 ml 02/13/23 01:00 02/14/23 08:14 Sodium Chloride Flush 0.9% 10 Ml Syringe IVP 10 ml 0100,0900,1700 PHOENIX Administration Tamsulosin HCl 0.4 mg 02/13/23 10:40 02/14/23 08:14 Tamsulosin 0.4 Mg Capsule PO 0.4 mg DAILY PHOEINX Administration Trazodone HCl 150 mg 02/13/23 21:00 02/13/23 22:38 Trazodone 50 Mg Tablet PO 150 mg QPM PH[place]ENIX Administration - Lab Result Fish Bone Diagrams: 02/14/23 04:55 02/14/23 04:55 - Additional Planning My Orders: My Active Orders 02/13/23 08:28 Telemetry- [RC] Q4HR 02/13/23 10:40 Aspirin EC [Ecotrin] 325 mg PO DAILY Tamsulosin [Flomax] 0.4 mg PO DAILY 02/13/23 10:41 Finasteride [Proscar] 5 mg PO DAILY 02/13/23 11:00 fentaNYL 12 MCG PATCH [Duragesic] 1 patch TOP Q3D medroxyPROGESTERone [Provera] 10 mg PO BID 02/13/23 12:35 LORazepam [Ativan] 0.5 mg PO QPM PRN 02/13/23 14:00 Acetaminophen [Tylenol] 1,000 mg PO TID Hydrocortisone Succinate [Solu-CORTEF] 100 mg IVP TID 02/13/23 21:00 Atorvastatin [Lipitor] 40 mg PO QPM traZODone [Desyrel] 150 mg PO QPM 02/14/23 05:00 BNP - B-NATRIURETIC PEPTIDE [IAI] Routine 02/14/23 07:00 Pantoprazole [Protonix] 40 mg PO QDAC 02/14/23 08:09 Lactulose [Enulose] 10 gm PO TID PRN 02/15/23 05:00 BMP - BASIC METABOLIC PANEL [CHEM] DAILYLAB BNP - B-NATRIURETIC PEPTIDE [IAI] DAILYLAB CBC - COMP BLD CT W/AUTO DIFF [HEME] DAILYLAB 02/16/23 05:00 BMP - BASIC METABOLIC PANEL [CHEM] DAILYLAB CBC - COMP BLD CT W/AUTO DIFF [HEME] DAILYLAB 02/16/23 07:00 Echo Transthoracic Complete [ECHO] Stat predniSONE [Deltasone] 5 mg PO 0700,1400 02/17/23 05:00 BMP - BASIC METABOLIC PANEL [CHEM] DAILYLAB CBC - COMP BLD CT W/AUTO DIFF [HEME] DAILYLAB Subjective - Subjective Patient Reports: Diarrhea (Started last night, nonpainful, liquidy, no blood.), Shortness of Breath (Any movement makes him winded) Objective Vital Signs: Vital Signs - 24 hr 02/13/23 02/13/23 02/13/23 14:45 16:10 20:11 Temperature 36.8 C 36.9 C 36.6 C Heart Rate [ 66 Brachial] Heart Rate [ 80 Monitoring electrodes] Respiratory 20 20 24 Rate Blood Pressure 126/80 [Left Brachial artery] Blood Pressure 136/72 H 136/67 H [Right Brachial artery] O2 Saturation 96 94 97 02/13/23 02/14/23 02/14/23 23:36 04:54 07:58 Temperature 36.8 C 36.9 C 36.7 C Heart Rate [ 72 81 67 Brachial] Heart Rate [ Monitoring electrodes] Respiratory 18 18 18 Rate Blood Pressure [Left Brachial artery] Blood Pressure 121/74 132/79 H 121/76 [Right Brachial artery] O2 Saturation 95 96 96 Oxygen O2 Source Room air I&O (Last 24 Hrs): Intake and Output Totals x24h 02/12/23 02/13/23 02/14/23 23:59 23:59 23:59 Intake Total 2954 3757.584 2310 Output Total 1150 600 Balance 2954 2607.584 1710 General: Alert, Oriented x3, No acute distress HEENT: Mucous membr. moist/pink Neck: Supple, No JVD Neuro: Alert, Non Focal Cardiovascular: Regular rate, No murmurs Respiratory: No respiratory distress, Breath sounds nml, Other (Inspiratory, upper airway rattle is heard (across the room)) Abdomen: Normal bowel sounds, Soft, No tenderness Extremities: No clubbing, No edema, No tenderness/swelling - Results Results: Laboratory Results WBC 13.3 x10^3/uL (4.8-10.8) H 02/14/23 04:55 RBC 3.11 10^6/uL (4.70-6.10) L 02/14/23 04:55 Hgb 9.3 g/dL (14.0-18.0) L 02/14/23 04:55 Hct 29.3 % (42.0-52.0) L 02/14/23 04:55 MCV 94.2 fL (80.0-94.0) H 02/14/23 04:55 MCH 29.9 pg (27.0-31.0) 02/14/23 04:55 MCHC 31.7 g/dL (32.0-36.0) L 02/14/23 04:55 RDW 18.6 % (12.0-15.0) H 02/14/23 04:55 Plt Count 244 10^3/uL (130-450) 02/14/23 04:55 MPV 9.3 fL (7.4-11.4) 02/14/23 04:55 Neut # (Auto) 11.7 10^3/uL (1.5-6.6) H 02/14/23 04:55 Lymph # (Auto) 0.5 10^3/uL (1.5-3.5) L 02/14/23 04:55 Banks # (Auto) 0.5 10^3/uL (0.0-1.0) 02/14/23 04:55 Eos # (Auto) 0.1 10^3/uL (0.0-0.7) 02/14/23 04:55 Baso # (Auto) 0.0 10^3/uL (0.0-0.1) 02/14/23 04:55 Absolute Nucleated RBC 0.00 x10^3/uL 02/14/23 04:55 Total Counted 100 02/13/23 04:40 Band Neuts % (Manual) 7 % (0-10) 02/13/23 04:40 Abnorm Lymph % (Manual) 0 % 02/13/23 04:40 Metamyelocytes % 1 % (-0) H 02/12/23 17:54 Nucleated RBC % 0.0 /100WBC 02/14/23 04:55 Neutrophils # (Manual) 10.9 10^3/uL (1.5-6.6) H 02/13/23 04:40 Lymphocytes # (Manual) 0.9 10^3/uL (1.5-3.5) L 02/13/23 04:40 Monocytes # (Manual) 0.8 10^3/uL (0.0-1.0) 02/13/23 04:40 Eosinophils # (Manual) 0.3 10^3/uL (0-0.7) 02/13/23 04:40 Basophils # (Manual) 0.0 10^3/uL (0-0.1) 02/13/23 04:40 Differential Comment MANUAL DIFFERENTIAL 02/13/23 04:40 WBC Morphology 1+ TOXIC GRANULATION (NORMAL) 02/12/23 17:54 Platelet Estimate NORMAL (130-450,000) (NORMAL) 02/13/23 04:40 Platelet Morphology NORMAL APPEARANCE (NORMAL) 02/12/23 17:54 RBC Morph Micro Appear NORMAL APPEARANCE (NORMAL) 02/13/23 04:40 Sodium 140 mmol/L (135-145) 02/14/23 04:55 Potassium 3.4 mmol/L (3.5-5.0) L 02/14/23 04:55 Chloride 111 mmol/L (101-111) 02/14/23 04:55 Carbon Dioxide 23 mmol/L (21-32) 02/14/23 04:55 Anion Gap 6.0 (6-13) 02/14/23 04:55 BUN 26 mg/dL (6-20) H 02/14/23 04:55 Creatinine 1.1 mg/dL (0.6-1.2) 02/14/23 04:55 Estimated GFR (MDRD) 67 (>89) L 02/14/23 04:55 Glucose 128 mg/dL (70-100) H 02/14/23 04:55 Lactic Acid 1.9 mmol/L (0.5-2.2) 02/12/23 18:07 Calcium 8.0 mg/dL (8.5-10.3) L 02/14/23 04:55 Magnesium 1.7 mg/dL (1.7-2.8) 02/14/23 04:55 Total Bilirubin 0.5 mg/dL (0.2-1.0) 02/13/23 04:40 AST 16 IU/L (10-42) 02/13/23 04:40 ALT 27 IU/L (10-60) 02/13/23 04:40 Alkaline Phosphatase 104 IU/L (42-121) 02/13/23 04:40 Troponin I High Sens 9.7 ng/L (2.3-19.7) 02/12/23 21:08 Total Protein 4.9 g/dL (6.7-8.2) L 02/13/23 04:40 Albumin 2.5 g/dL (3.2-5.5) L 02/13/23 04:40 Globulin 2.4 g/dL (2.1-4.2) 02/13/23 04:40 Albumin/Globulin Ratio 1.0 (1.0-2.2) 02/13/23 04:40 Lipase 43 U/L (22-51) 02/12/23 17:54 Urine Color YELLOW 02/12/23 20:21 Urine Clarity CLEAR (CLEAR) 02/12/23 20:21 Urine pH 6.0 PH (5.0-7.5) 02/12/23 20:21 Ur Specific [place] 1.010 (1.002-1.030) 02/12/23 20:21 Urine Protein NEGATIVE mg/dL (NEGATIVE) 02/12/23 20:21 Urine Glucose (UA) NEGATIVE mg/dL (NEGATIVE) 02/12/23 20:21 Urine Ketones NEGATIVE mg/dL (NEGATIVE) 02/12/23 20:21 Urine Occult Blood NEGATIVE (NEGATIVE) 02/12/23 20:21 Urine Nitrite NEGATIVE (NEGATIVE) 02/12/23 20:21 Urine Bilirubin NEGATIVE (NEGATIVE) 02/12/23 20:21 Urine Urobilinogen 0.2 (NORMAL) E.U./dL (NORMAL) 02/12/23 20:21 Ur Leukocyte Esterase NEGATIVE (NEGATIVE) 02/12/23 20:21 Ur Microscopic Review NOT INDICATED 02/12/23 20:21 Urine Culture Comments NOT INDICATED 02/12/23 20:21 Blood Type O NEGATIVE 02/12/23 18:07 Blood Type Recheck O NEGATIVE 02/12/23 17:54 Antibody Screen NEGATIVE 02/12/23 18:07 Sepsis Event Note (H) - Evaluation Possible source of Sepsis: positive: Unknown
[2023-02-14] MEDS ORDERED: FUROSEMIDE 20 MG TABLET PO STA (15:25)
--- NOTE | 2023-02-14 15:35 | PROVIDER PROGRESS NOTE ---
Hospitalist Cross-cover Note - Cross-Cover Note Cross-Cover Note: ECHOCARDIOGRAM REPORT 02/14/23 As a Board-certified [employer] Eradicator, credentialed to perform and interpret Echoes, I did a limited bedside Echo and Doppler on this patient. Indication: Shortness of breath, CHF on chest x-ray after IV fluids given for treating hypotension which caused Syncope Image quality : Fair Findings: Mildly dilated left atrium. Right atrium never well seen. Normal aortic root diameter. Normal left ventricular size with concentric left ventricular hypertrophy, normal LV contractility, ejection fraction 60 to 70%. Doppler shows mild LV diastolic dysfunction is present Right ventricle never well seen in any view. The mitral and tricuspid valves appear structurally normal. The aortic and pulmonic valves are poorly seen. No Significant MR or TR, Doppler of the valves was incomplete No pericardial effusion Summary: LVH with preserved LVEF and mild diastolic dysfunction present.
[2023-02-14] MEDS: traZODone 50 MG TABLET PO SCH (21:41)
[2023-02-14] MEDS: ATORVASTATIN 40 MG TABLET PO SCH (21:43)
[2023-02-15] MEDS: SODIUM CHLORIDE FLUSH 0.9% 10 ML SYRINGE IVP SCH ×3 (01:57→18:13)
[2023-02-15] MEDS: ONDANSETRON 4 MG/2 ML VIAL IVP PRN (03:55)
[2023-02-15] MEDS: ACETAMINOPHEN 500 MG TABLET PO SCH ×3 (06:40→21:30)
[2023-02-15] MEDS: PIPERACILLIN/TAZOBACTAM 3.375 GM in SODIUM CHLORIDE 0.9% MINIBAG 100 ML IV SCH ×3 (06:41→21:30)
[2023-02-15] MEDS: PANTOPRAZOLE 40 MG TABLET PO SCH (06:41)
[2023-02-15] MEDS: HYDROCORTISONE SUCCINATE 100 MG/2 ML VIAL IVP SCH ×3 (06:41→21:30)
[2023-02-15] MEDS: SODIUM CHLORIDE FLUSH 0.9% 10 ML SYRINGE IVP PRN (06:42)
[2023-02-15 07:45] LABS: BASOPHILS % (AUTO) 0.2 %; EOSINOPHILS % (AUTO) 0.2 %; HCT - HEMATOCRIT 27.7 % (42.0-52.0); LYMPHOCYTES % (AUTO) 5.1 %; MEAN CORPUSCULAR HEMOGLOBIN 30.1 pg (27.0-31.0); MEAN CORPUSCULAR HGB CONC 32.5 g/dL (32.0-36.0); MEAN CORPUSCULAR VOLUME 92.6 fL (80.0-94.0); MEAN PLATELET VOLUME 8.6 fL (7.4-11.4); MONOCYTES % (AUTO) 5.8 %; NEUTROPHILS % (AUTO) 84.1 %; PLT - PLATELET COUNT 227 10^3/uL (130-450); RED BLOOD COUNT 2.99 10^6/uL (4.70-6.10); RED CELL DISTRIBUTION WIDTH 18.3 % (12.0-15.0)
[2023-02-15 08:00] LABS: CALCIUM 8.1 mg/dL (8.5-10.3); CREATININE 1.2 mg/dL (0.6-1.2); MAGNESIUM 1.8 mg/dL (1.7-2.8)
[2023-02-15 08:04] LABS: SLIDE REVIEW? Indicated
[2023-02-15 08:05] LABS: ABNORMAL LYMPHS % (MANUAL) 0 %
[2023-02-15 08:08] LABS: BAND NEUTROPHILS % (MANUAL) 5 %; LYMPHOCYTES # (MANUAL) 0.8 10^3/uL (1.5-3.5); LYMPHOCYTES % (MANUAL) 6 %; METAMYELOCYTES % (MANUAL) 4 %; MONOCYTES # (MANUAL) 0.8 10^3/uL (0.0-1.0); NEUTROPHILS # (MANUAL) 11.8 10^3/uL (1.5-6.6)
[2023-02-15 08:12] LABS: PLATELET ESTIMATE, MANUAL NORMAL (130-450,000) (NORMAL); PLATELET MORPHOLOGY NORMAL APPEARANCE (NORMAL)
[2023-02-15 08:13] LABS: DIFFERENTIAL COMMENT MANUAL DIFFERENTIAL; WBC MORPHOLOGY (MULTIPLE) 1+ TOXIC GRANULATION (NORMAL)
[2023-02-15] MEDS: ASPIRIN EC 325 MG TABLET PO SCH (08:13)
[2023-02-15] MEDS: FUROSEMIDE 20 MG TABLET PO SCH (08:13)
[2023-02-15] MEDS: TAMSULOSIN 0.4 MG CAPSULE PO SCH (08:13)
[2023-02-15] MEDS: FINASTERIDE 5 MG TABLET PO SCH (08:13)
[2023-02-15] MEDS: VANCOMYCIN INJ 1 GM in SODIUM CHLORIDE 0.9% 250 ML IV SCH (08:14)
[2023-02-15] MEDS ORDERED: POTASSIUM CHLORIDE 20 MEQ TABLET PO SCH (09:00)
[2023-02-15] MEDS: POTASSIUM BICARB 25 MEQ TABLET PO SCH ×3 (11:21→20:13)
--- NOTE | 2023-02-15 16:48 | PROVIDER PROGRESS NOTE ---
Subjective - Prog Note Date Prog Note Date: 02/15/23 Prog Note Time: 16:46 - Subjective Pt reports feeling: Improved Subjective: He says he feels much better than he did on admission. But more than anything he is just tired. Yesterday he had diarrhea from 5 AM to 8 PM. Has had no further diarrhea since then. But then he gets worried that he sliding back into the constipation he had with his chemotherapy. Abdomen is slightly distended and full. He is having flatus. He denies any pain. No chest pain, cough, or abdominal pain. No urgency, no dysuria. He says that his shortness of breath is better than yesterday but it still present. Current Medications - Current Medications Current Medications: Active Medications Acetaminophen (Acetaminophen 500 Mg Tablet) 1,000 mg PO TID [facility] Last Admin: 02/15/23 13:54 Dose: 1,000 mg Aspirin (Aspirin Ec 325 Mg Tablet) 325 mg PO DAILY [facility] Last Admin: 02/15/23 08:13 Dose: 325 mg Atorvastatin Calcium (Atorvastatin 40 Mg Tablet) 40 mg PO QPM [facility] Last Admin: 02/14/23 21:43 Dose: 40 mg Fentanyl (Fentanyl 12 Mcg Patch) 1 patch TOP Q3D [facility] Last Admin: 02/13/23 10:51 Dose: 1 patch Finasteride (Finasteride 5 Mg Tablet) 5 mg PO DAILY [facility] Last Admin: 02/15/23 08:13 Dose: 5 mg Furosemide (Furosemide 20 Mg Tablet) 20 mg PO DAILY [facility] Stop: 02/17/23 00:01 Last Admin: 02/15/23 08:13 Dose: 20 mg Hydrocortisone Sodium Succinate (Hydrocortisone Succinate 100 Mg/2 Ml Vial) 100 mg IVP TID [facility] Stop: 02/16/23 00:01 Last Admin: 02/15/23 13:54 Dose: 100 mg Piperacillin Sod/Tazobactam (Sod 3.375 gm/ Sodium Chloride) 100 mls @ 25 mls/hr IV Q8HR [facility] Last Admin: 02/15/23 13:54 Dose: 25 mls/hr Vancomycin HCl 1 gm/ Sodium (Chloride) 250 mls @ 166.667 mls/hr IV Q12H [facility] Last Infusion: 02/15/23 09:45 Dose: Infused Lactulose (Lactulose 10 Gm /15 Ml Udc) 10 gm PO DAILY PRN PRN Reason: Constipation Last Admin: 02/13/23 08:55 Dose: 10 gm Lactulose (Lactulose 10 Gm /15 Ml Udc) 10 gm PO TID PRN PRN Reason: Constipation Lorazepam (Lorazepam 0.5 Mg Tablet) 0.5 mg PO QPM PRN PRN Reason: Insomnia Medroxyprogesterone Acetate (Medroxyprogesterone 2.5 Mg Tablet) 10 mg PO BID [facility] Last Admin: 02/15/23 08:13 Dose: 10 mg Ondansetron HCl (Ondansetron 4 Mg/2 Ml Vial) 4 mg IVP Q6HR PRN PRN Reason: Nausea / Vomiting Last Admin: 02/15/23 03:55 Dose: 4 mg Pantoprazole Sodium (Pantoprazole 40 Mg Tablet) 40 mg PO QDAC [facility] Last Admin: 02/15/23 06:41 Dose: 40 mg Potassium Bicarbonate (Potassium Bicarb 25 Meq Tablet) 25 meq PO Q4H [facility] Stop: 02/15/23 20:01 Last Admin: 02/15/23 16:05 Dose: 25 meq Prednisone (Prednisone 5 Mg Tablet) 5 mg PO 0700,1400 [facility] Sodium Chloride (Sodium Chloride Flush 0.9% 10 Ml Syringe) 10 ml IVP PRN PRN PRN Reason: NEEDED PER PROVIDER ORDERS Last Admin: 02/15/23 06:42 Dose: 10 ml Sodium Chloride (Sodium Chloride Flush 0.9% 10 Ml Syringe) 10 ml IVP 0100,0900,1700 [facility] Last Admin: 02/15/23 08:14 Dose: 10 ml Tamsulosin HCl (Tamsulosin 0.4 Mg Capsule) 0.4 mg PO DAILY [facility] Last Admin: 02/15/23 08:13 Dose: 0.4 mg Trazodone HCl (Trazodone 50 Mg Tablet) 150 mg PO QPM [facility] Last Admin: 02/14/23 21:41 Dose: 150 mg Chlorthalidone 25 mg ORAL DAILY 11/09/22 Finasteride [Proscar] 5 mg PO DAILY 11/09/22 Medroxyprogesterone Acetate [Provera] 10 mg PO BID 11/09/22 Tamsulosin HCl [Flomax] 0.4 mg ORAL DAILY 11/09/22 Trazodone HCl 150 mg PO HS 11/09/22 lisinopriL [Lisinopril] 20 mg ORAL DAILY 11/09/22 Acetaminophen [Tylenol] 1,000 mg PO TID 02/13/23 Aspirin EC [Ecotrin] 325 mg PO DAILY 02/13/23 Atorvastatin Calcium 40 mg PO QPM 02/13/23 Lactulose 10 gm PO TID 02/13/23 Ondansetron [Ondansetron Odt] 8 mg PO Q6H PRN 02/13/23 Pantoprazole [Protonix] 40 mg PO DAILY 02/13/23 Prochlorperazine Maleate [Compazine] 10 mg PO Q4HR PRN 02/13/23 fentaNYL 12 MCG PATCH [Duragesic 12mcg patch] 1 patch TOP Q3D 02/13/23 predniSONE [Deltasone] 5 mg PO 0700,1400 02/13/23 Objective - Vital Signs/Intake & Output Reviewed Vital Signs: Yes Vital Signs: Vital Signs x48h Temp Pulse Resp BP BP Pulse Ox O2 Flow Rate 02/15/23 15:59 36.8 C 62 20 148/82 H 98 2 02/15/23 12:39 36.8 C 64 22 135/70 H 95 Intake & Output: Intake & Output 02/12/23 02/13/23 02/14/23 02/15/23 23:59 23:59 23:59 23:59 Intake Total 2954 3757.584 3683.000 810 Output Total 1150 1175 350 Balance 2954 2607.584 2508.000 460 - Objective General Appearance: positive: No acute distress, Alert Eyes Bilateral: positive: PERRL, EOMI ENT: positive: No signs of dehydration Neck: positive: No JVD. negative: Stiff neck Respiratory: positive: No respiratory distress. negative: Wheezes, Rales, Rhonchi Cardiovascular: positive: Regular rate & rhythm Abdomen: positive: Non-tender, Other (slightly distended w gas, hypoactive bowel sounds). negative: Guarding, Rebound, Hepatomegaly, Splenomegaly Skin: positive: Warm, Dry. negative: Diaphoresis, Pallor Extremities: positive: Full ROM, Pedal edema (below SCDs only in ankles and feet, not in calves) Neurologic/Psychiatric: positive: Oriented x3, CN's nml (2-12), Motor nml, Sensation nml - Lab Results Fish Bones: 02/15/23 07:38 02/15/23 07:38 Other Labs: Lab Results x24hrs 02/15/23 02/15/23 02/15/23 Range/Units 07:38 07:38 07:38 WBC (4.8-10.8) x10^3/uL RBC (4.70-6.10) 10^6/uL Hgb (14.0-18.0) g/dL Hct (42.0-52.0) % MCV (80.0-94.0) fL MCH (27.0-31.0) pg MCHC (32.0-36.0) g/dL RDW (12.0-15.0) % Plt Count (130-450) 10^3/uL MPV (7.4-11.4) fL Neut # (Auto) Lymph # (Auto) [place] # (Auto) Eos # (Auto) Baso # (Auto) Absolute Nucleated RBC Total Counted Band Neuts % (Manual) (0 - 10) % Abnorm Lymph % (Manual) % Metamyelocytes % ( - 0) % Nucleated RBC % Neutrophils # (Manual) (1.5-6.6) 10^3/uL Lymphocytes # (Manual) (1.5-3.5) 10^3/uL Monocytes # (Manual) (0.0-1.0) 10^3/uL Eosinophils # (Manual) (0-0.7) 10^3/uL Basophils # (Manual) (0-0.1) 10^3/uL Differential Comment Manual Slide Review WBC Morphology (NORMAL) Platelet Estimate (NORMAL) Platelet Morphology (NORMAL) RBC Morph Micro Appear (NORMAL) Sodium 142 (135-145) mmol/L Potassium 3.0 L (3.5-5.0) mmol/L Chloride 113 H (101-111) mmol/L Carbon Dioxide 26 (21-32) mmol/L Anion Gap 3.0 L (6-13) BUN 31 H (6-20) mg/dL Creatinine 1.2 (0.6-1.2) mg/dL Estimated GFR (MDRD) 60 L (>89) Glucose 118 H (70-100) mg/dL Calcium 8.1 L (8.5-10.3) mg/dL Magnesium 1.8 (1.7-2.8) mg/dL B-Natriuretic Peptide 255 H (5-100) pg/mL Stl C. diff Tox B Gene (NEGATIVE) Last Dose Date 02/15/23 Last Dose Time 0814 Vancomycin Trough 18.0 (10.0-20.0) ug/mL 02/15/23 02/14/23 Range/Units 07:38 18:50 WBC 14.0 H (4.8-10.8) x10^3/uL RBC 2.99 L (4.70-6.10) 10^6/uL Hgb 9.0 L (14.0-18.0) g/dL Hct 27.7 L (42.0-52.0) % MCV 92.6 (80.0-94.0) fL MCH 30.1 (27.0-31.0) pg MCHC 32.5 (32.0-36.0) g/dL RDW 18.3 H (12.0-15.0) % Plt Count 227 (130-450) 10^3/uL MPV 8.6 (7.4-11.4) fL Neut # (Auto) Not Reportable Lymph # (Auto) Not Reportable [place] # (Auto) Not Reportable Eos # (Auto) Not Reportable Baso # (Auto) Not Reportable Absolute Nucleated RBC Not Reportable Total Counted 100 Band Neuts % (Manual) 5 (0 - 10) % Abnorm Lymph % (Manual) 0 % Metamyelocytes % 4 H ( - 0) % Nucleated RBC % Not Reportable Neutrophils # (Manual) 11.8 H (1.5-6.6) 10^3/uL Lymphocytes # (Manual) 0.8 L (1.5-3.5) 10^3/uL Monocytes # (Manual) 0.8 (0.0-1.0) 10^3/uL Eosinophils # (Manual) 0.0 (0-0.7) 10^3/uL Basophils # (Manual) 0.0 (0-0.1) 10^3/uL Differential Comment MANUAL DIFFERENTIAL Manual Slide Review Indicated WBC Morphology 1+ TOXIC GRANULATION (NORMAL) Platelet Estimate NORMAL (130-450,000) (NORMAL) Platelet Morphology NORMAL APPEARANCE (NORMAL) RBC Morph Micro Appear 1+ BASO STIPPLING (NORMAL) Sodium (135-145) mmol/L Potassium (3.5-5.0) mmol/L Chloride (101-111) mmol/L Carbon Dioxide (21-32) mmol/L Anion Gap (6-13) BUN (6-20) mg/dL Creatinine (0.6-1.2) mg/dL Estimated GFR (MDRD) (>89) Glucose (70-100) mg/dL Calcium (8.5-10.3) mg/dL Magnesium (1.7-2.8) mg/dL B-Natriuretic Peptide (5-100) pg/mL Stl C. diff Tox B Gene POSITIVE A* (NEGATIVE) Last Dose Date Last Dose Time Vancomycin Trough (10.0-20.0) ug/mL - Other Results/Comments Other Results/Comments: Laboratory Tests 02/14/23 18:50 Stl C. diff Tox B Gene POSITIVE A* ABX Reporting Has patient been on IV antibiotics over the past 48 hours?: Yes Sepsis Event Note (H) - Evaluation Possible source of Sepsis: positive: Unknown Assessment/Plan - Problem List (1) SOB (shortness of breath) Impression: Dayshift RN noted that he gets tachypneic easily. He reported to hospitalist on 02/14 that he was SOB w/ even minimal activity. On exam that day, he did not have wheezing, rales or rhonchi. He has an inspiratory rattle upper airway sound. Chest x-ray was ordered and showed bibasilar volume overload versus atelectasis versus infiltrate. That hospitalist did a bedside echo.The patient has LVH with preserved LVEF and mild diastolic dysfunction present (see separate report labeled Cross-cover Note). She gave him Lasix p.o. to end tomorrow. She suspects this man has a very narrow range of proper hydration for him; if he is too dry he is hypotensive, if he has too much fluid he gets pulmonary edema.He tells me that he has improved. He is not as short of breath as he was yesterday. Urine output was 1175 cc. Over the course of the day he was still +2508 cc. IV fluids have been discontinued so he has only received 930 cc today. And he has urinated 350 cc as of this dictation. BNP was 166 yesterday. It is 255 today. All things being said, and today's exam, he seems to be euvolemic. And subjectively has improved. Plan: Continue the Lasix for 1 more day as already ordered. Continue to monitor for signs and symptoms of congestive heart failure (2) Leukocytosis He presented with hypotension, and leukocytosis w/ WBC 17.5 and a L shift, but no elevated lactic acid level or bilirubin, no obvious source on a physical exam, but he has a continued finding of the mass in his pelvis, which was read as a possible abscess, by the Radiologist. He was started on empiric IV antibiotics. All labs were reviewed. His WBC has decreased from 17.5>> 13>>14 today, No fevers. Blood cultures are negative to date. Plan: Continue with empiric IV antibiotics Zosyn and Vanco for now. But the abx have given him C dif. Follow CBC daily (3) Diarrhea Normally he is "always constipated" and he says and he needs Lactulose daily or up to 3 times daily to have a BM. Since admission, he had a normal BM yesterday then 02/14 had had 3 liquid diarrheal stools between 5 am and 8 pm. There is no pain or tenderness. Today he is gone back to the "constipation" he usually associates with his chemotherapy.The diarrhea is C. difficile positive.So he has had diarrhea for all of 1 day. Today none. White cell count is stable. Mild dilation of his stomach on exam today. He is not very symptomatic from this C. difficile diarrhea. Plan: Stop his usual Lactulose as a scheduled med (which he takes for severe constipation caused by chemo), and made it 3 times daily prn constipation. Start oral vancomycin. This is usually given up to 2 weeks depending on the patient's symptoms. In this man's case I would probably only give less than a week. (4) Pelvic mass in a male CT abdomen was done after ED provider spoke to an on-call Oncologist from [facility] who was concerned that he is "seeding from his abdomen" or retroperitoneal source. The CT showed this mass, which is between the rectum and prostate, which has been seen before. The Radiologist read this as the possibility of being an abscess. Patient told hospitalist that he gets his cancer care at [facility] but also goes to a Urologist at , Dr. Nacho Rutledge. Plan: Continue with empiric antibiotics, in case this could be an abscess Await blood culture results to tailor antibx Try to reach his Urologist Dr. Rutledge on Wednesday for recommendations (today is Wednesday). (5) Hypokalemia I suspect this is from potassium losses from being on HCTZ. I did order K. Dur 40 mEq p.o. twice daily. But the patient says that this type of replacement gives him nausea. He asked for IV replacement. I really hesitated giving him IV replacement when he is able to swallow and has an intact gut. I asked pharmacy to speak to him to discuss that the various types of potassium supplementation. He ended up taking the K-Dur. Plan: Follow BMP daily (6) Sleep apnea on CPAP The patient remembered 02/14 to tell the hospitalist about this about his history. He does use a CPAP unit and does not have that CPAP machine here. There is nobody that has a king to his RV where he lives, to bring in his CPAP Plan: Will order O2 at 2 L per nasal cannula, just at night, since that is what was done at 2 mos ago, he said, when he was there for a TIA But I have asked him again today to see if there is anybody that can go to the RV to get the CPAP machine and bring it to the hospital. (7) Acute on CKD Resolved All labs were reviewed including his past lab work in this EMR. The patient usually runs a creatinine of 1.2-1.3. He presented here with a creatinine of 1.7 and after IV fluids that has improved to 1.3>> 1.1 >>1.2 today. IV fluids are being stopped 02/14 due to SOB and CHF on CXR Plan: Avoid nephrotoxins Monitor BMP daily. (8) Syncope He gave me the details: On the day of admission, he was walking outside and felt lightheaded, had to hold onto to his car, a friend brought him a chair and he stabilized after sitting for 15 minutes but then when he stood up, he was near syncopal. He wnt inside his RV (where he lives) and tried measuring his BP and kept getting "error" results, and then finally it read 50/32 and he then asked his friend to drive him into the ER. The friend had to support him under his arms because he could hardly walk in to the hospital, he said. He had a documented low blood pressure at presentation here of 70/30, which has improved with iv fluids Plan: Continue to monitor on telemetry to watch for arrhythmias Obtain an Echocardiogram to evaluate for structural heart disease (we have no [employer]ending [employer] available here until February 16 which is 3 days away). Continue to hold his 2 blood pressure meds, HCTZ and lisinopril. I explained to the pt that he probably does not need both meds and that he probably needs a lower dose of lisinopril and possibly no HCTZ Will check orthostatic VS (9) HTN Plan: Plan: Continue to hold his 2 blood pressure meds, HCTZ and lisinopril (10) Hx of TIA The patient remember today to tell me about this in his history. Two months ago he lost vision in his right eye and it cleared up by the next day. That next day he went for chemotherapy and reported the symptoms and was sent to the ER and admitted to where he underwent a work-up for TIA. He reports that there were no major findings. He is on daily aspirin now. Plan: All his usual medications from home have been continued here (11) Prostate cancer with mets to bone As per Hx. He is on chemo which makes him immunocompromised and at risk for infections. He gets his prostate cancer care at [facility], 3 times a month. No one at [facility] has addressed the mass in his pelvis for a long time, he said. He sees a Urologist at , and that provider has not addressed that mass for a while either. (12) Sepsis associated hypotension Assessment/Plan: He presented with hypotension, and leukocytosis w/ WBC 17.5 and a L shift, but no elevated lactic acid level or bilirubin, no obvious source on a physical exam, but he has continued finding of the mass in his pelvis, which was read as a possible abscess, by the Radiologist He is no longer hypotensive. BP is normal, but without any of his BP meds being used Plan: Continue with empiric IV antibiotics Zosyn and Vanco for now Await blood culture results Will stop IV fluids due to #1 Continue to hold his home BP meds, but continue his 2 BPH meds Continue to give stress dose steroids (Hydrocortisone 100 mg tid) for 3 days du ring this (presumed) infection, since he is steroid-dependent and could get Addisonian. He did feel "hyperactive" on this higher dose of steroids, which she knew he would, but he was able to sleep. Stop time for hydrocortisone has been entered as well as a start time for resuming his Prednisone.
[2023-02-15] MEDS: ATORVASTATIN 40 MG TABLET PO SCH (20:13)
[2023-02-15] MEDS: VANCOMYCIN 125 MG CAPSULE PO SCH (20:13)
[2023-02-15] MEDS: traZODone 50 MG TABLET PO SCH (21:30)
[2023-02-16] MEDS: ONDANSETRON 4 MG/2 ML VIAL IVP PRN (00:22)
[2023-02-16] MEDS: LORazepam 0.5 MG TABLET PO PRN ×2 (00:23→22:07)
[2023-02-16] MEDS: SODIUM CHLORIDE FLUSH 0.9% 10 ML SYRINGE IVP SCH ×4 (00:24→21:16)
[2023-02-16 05:09] LABS: BASOPHILS % (AUTO) 0.2 %; EOSINOPHILS % (AUTO) 0.1 %; HCT - HEMATOCRIT 28.4 % (42.0-52.0); HGB - HEMOGLOBIN 9.1 g/dL (14.0-18.0); LYMPHOCYTES % (AUTO) 4.7 %; MEAN CORPUSCULAR HEMOGLOBIN 30.1 pg (27.0-31.0); MEAN PLATELET VOLUME 9.2 fL (7.4-11.4); MONOCYTES % (AUTO) 6.3 %; NEUTROPHILS % (AUTO) 82.6 %; PLT - PLATELET COUNT 234 10^3/uL (130-450); RED BLOOD COUNT 3.02 10^6/uL (4.70-6.10); RED CELL DISTRIBUTION WIDTH 18.5 % (12.0-15.0); WHITE BLOOD COUNT 14.4 x10^3/uL (4.8-10.8)
[2023-02-16 05:21] LABS: ABNORMAL LYMPHS % (MANUAL) 0 %
[2023-02-16 05:28] LABS: BAND NEUTROPHILS % (MANUAL) 1 %; CALCIUM 8.1 mg/dL (8.5-10.3); CREATININE 1.1 mg/dL (0.6-1.2); LYMPHOCYTES # (MANUAL) 0.9 10^3/uL (1.5-3.5); LYMPHOCYTES % (MANUAL) 6 %; METAMYELOCYTES % (MANUAL) 3 %; MONOCYTES # (MANUAL) 0.7 10^3/uL (0.0-1.0); MYELOCYTES % (MANUAL) 1 %; NEUTROPHILS # (MANUAL) 12.2 10^3/uL (1.5-6.6); NUCLEATED RBC (MANUAL) 1 %; POTASSIUM 3.5 mmol/L (3.5-5.0)
[2023-02-16 05:34] LABS: DIFFERENTIAL COMMENT MANUAL DIFFERENTIAL; PLATELET ESTIMATE, MANUAL NORMAL (130-450,000) (NORMAL); PLATELET MORPHOLOGY NORMAL APPEARANCE (NORMAL); WBC MORPHOLOGY (MULTIPLE) NORMAL APPEARANCE (NORMAL)
[2023-02-16] MEDS: PANTOPRAZOLE 40 MG TABLET PO SCH (06:13)
[2023-02-16] MEDS: PIPERACILLIN/TAZOBACTAM 3.375 GM in SODIUM CHLORIDE 0.9% MINIBAG 100 ML IV SCH ×2 (06:13→13:25)
[2023-02-16] MEDS: predniSONE 5 MG TABLET PO SCH ×2 (06:13→13:24)
[2023-02-16] MEDS: ACETAMINOPHEN 500 MG TABLET PO SCH ×3 (06:13→21:15)
[2023-02-16] MEDS: TAMSULOSIN 0.4 MG CAPSULE PO SCH (08:35)
[2023-02-16] MEDS: FINASTERIDE 5 MG TABLET PO SCH (08:35)
[2023-02-16] MEDS: VANCOMYCIN 125 MG CAPSULE PO SCH ×2 (08:35→13:24)
[2023-02-16] MEDS: FUROSEMIDE 20 MG TABLET PO SCH (08:35)
[2023-02-16] MEDS: ASPIRIN EC 325 MG TABLET PO SCH (08:35)
[2023-02-16] MEDS: fentaNYL 12 MCG PATCH TOP SCH (11:19)
[2023-02-16] MEDS ORDERED: SACCHAROMYCES BOULARDII 250 MG CAPSULE PO SCH (12:00)
[2023-02-16] MEDS: LACTULOSE 10 GM /15 ML UDC PO PRN ×2 (12:04→22:07)
[2023-02-16] MEDS ORDERED: ALPHA LIPOIC ACID 200 MG PO SCH (17:00)
--- NOTE | 2023-02-16 19:57 | PROVIDER PROGRESS NOTE ---
Assessment/Plan - Problem List (1) C. difficile diarrhea Assessment/Plan: Normally he is "always constipated" and he says and he needs Lactulose daily or up to 3 times daily to have a BM. Since admission, he had a normal BM yesterday then 02/14 had had 3 liquid diarrheal stools between 5 am and 8 pm. There is no pain or tenderness. Today he is gone back to the "constipation" he usually associates with his chemotherapy.The diarrhea is C. difficile positive.So he had diarrhea for all of 1 day. Today no BM. White cell count is stable. He has distension of his stomach with hypertympani on exam today, but no tenderness. He is not very symptomatic from this C. difficile diarrhea. We stopped his usual Lactulose as a scheduled med (which he takes for severe constipation caused by chemo), and made it 3 times daily prn constipation. Plan: Despite having diarrhea, his diet was not altered to help with easily digestible foods. I believe that his hypertympany is gas and I will change his diet to a BRAT diet today We started oral vancomycin yesterday. This is usually given up to 10-14 days depending on the patient's symptoms. In this man's case I would probably only give for a week. (2) Leukocytosis He presented with hypotension, and leukocytosis w/ WBC 17.5 and a L shift, but no elevated lactic acid level or bilirubin, no obvious source on a physical exam, but he has a continued finding of the mass in his pelvis, which was read as a possible abscess, by the Radiologist. He was started on empiric IV antibiotics. All labs were reviewed. His WBC has decreased from 17.5>> 13>>14 today, No fevers. Blood cultures are negative to date. The patient's oncologist at [facility] called me today (Dr. Canela [phone], ext [phone]) and we reviewed his entire course. Dr. Canela recommended that since there is no source of an infection, to stop his empiric antibiotics now, watch for 24 hours and if he is better he does not need resumption of IV antibiotics. (But he does recommend to continue p.o. Vanco) Plan: Will stop empiric IV antibiotics Zosyn and Vanco now. Monitor for worsening over 24 hours. Follow CBC daily (3) Pelvic mass in a male CT abdomen was done after ED provider spoke to an on-call Oncologist from [facility] who was concerned that he is "seeding from his abdomen" or retroperitoneal source. The CT showed this mass, which is between the rectum and prostate, which has been seen before. The Radiologist read this as the possibility of being an abscess. Patient told hospitalist that he gets his cancer care at [facility] but also goes to a Urologist at , Dr. Nacho Rutledge. Plan: Dr Canela was not overly concerned about the mass since he had no fever on admission and no source of infection has declared itself. Will stop empiric IV antibiotics Zosyn and Vanco now. Monitor for worsening over 24 hours. No one at [facility] has addressed the mass in his pelvis for a long time, he said. He sees a Urologist at , and that provider has not addressed that mass for a while either. These providers will need to manage this after Dch (4) SOB (shortness of breath) Impression: Improved The day after starting iv fluids, he got tachypneic easily. On exam that day, he did not have wheezing, rales or rhonchi. He has an inspiratory rattle upper airway sound. Chest x-ray was ordered and showed bibasilar volume overload versus atelectasis versus infiltrate. I did a bedside Echo which showed LVH with preserved LVEF and mild diastolic dysfunction present (see separate report labeled Cross-cover Note). We stopped iv luids and started him Lasix p.o. I suspect this man has a very narrow range of proper hydration for him; if he is too dry he is hypotensive, if he has too much fluid he gets pulmonary edema. He has improved. He is not as short of breath as he was previously. Plan: Continue on Lasix and to monitor for signs and symptoms of congestive heart failure (5) Hypokalemia Labs were reviewed. He had a low K at admission. I suspect this is from potassium losses from being on HCTZ. He got K-Dur. Plan: Follow BMP daily (6) Sleep apnea on CPAP The patient remembered 02/14 to describe this history. He does use a CPAP unit and does not have that CPAP machine here. There is nobody that has a king to his RV where he lives, to bring in his CPAP Plan: We have asked him again today to see if there is anybody that can go to the RV to get the CPAP machine and bring it to the hospital. (7) Acute on CKD Resolved All labs were reviewed including his past lab work in this EMR. The patient usually runs a creatinine of 1.2-1.3. He presented here with a creatinine of 1. 7 and after IV fluids that has improved to 1.3>> 1.1 >>1.2 today. IV fluids are being stopped 02/14 due to SOB and CHF on CXR Plan: Avoid nephrotoxins Monitor BMP daily. (8) Syncope He gave me the details: On the day of admission, he was walking outside and felt lightheaded, had to hold onto to his car, a friend brought him a chair and he stabilized after sitting for 15 minutes but then when he stood up, he was near syncopal. He wnt inside his RV (where he lives) and tried measuring his BP and kept getting "error" results, and then finally it read 50/32 and he then asked his friend to drive him into the ER. The friend had to support him under his arms because he could hardly walk in to the hospital, he said. He had a documented low blood pressure at presentation here of 70/30, which improved with iv fluids Plan: Continue to monitor on telemetry to watch for arrhythmias Obtain an Echocardiogram to evaluate for structural heart disease (we have no Cheese Wrapper available here until February 16 which is 3 days away). Continue to hold his 2 blood pressure meds, HCTZ and lisinopril. I explained to the pt that he probably does not need both meds and that he probably needs a lower dose of lisinopril and possibly no HCTZ (9) HTN Plan: Plan: Continue to hold his 2 blood pressure meds, HCTZ and lisinopril (10) Hx of TIA The patient remember this in his history after being admitted. Two months ago he lost vision in his right eye and it cleared up by the next day. That next day he went for chemotherapy and reported the symptoms and was sent to the ER and admitted to where he underwent a work-up for TIA. He reports that there were no major findings. He is on daily aspirin now. Plan: All his usual medications from home have been continued here (11) Prostate cancer with mets to bone As per Hx. He is on chemo which makes him immunocompromised and at risk for infections. He gets his prostate cancer care at [facility], 3 times a month. (12) Sepsis associated hypotension Assessment/Plan: He presented with hypotension, and leukocytosis w/ WBC 17.5 and a L shift, but no elevated lactic acid level or bilirubin, no fever or obvious source on a physical exam, but he has continued finding of the mass in his pelvis, which was read as a possible abscess, by the Radiologist After iv fluids he was no longer hypotensive. After several days of empiric iv Vanco and Zosyn, with no source, the antibx were stopped yesterday, after discussing with his Oncologist Dr Canela by phone. - Current Meds Current Meds: Current Medications Generic Name Dose Route Start Last Admin Trade Name Freq PRN Reason Stop Dose Admin Acetaminophen 1,000 mg 02/13/23 14:00 02/16/23 13:24 Acetaminophen 500 Mg Tablet PO 1,000 mg TID PHOENIX Administration Aspirin 325 mg 02/13/23 10:40 02/16/23 08:35 Aspirin Ec 325 Mg Tablet PO 325 mg DAILY PHOENIX Administration Atorvastatin Calcium 40 mg 02/13/23 21:00 02/15/23 20:13 Atorvastatin 40 Mg Tablet PO 40 mg QPM PHOENIX Administration Fentanyl 1 patch 02/13/23 11:00 02/16/23 11:19 Fentanyl 12 Mcg Patch TOP 1 patch Q3D PHOENIX Administration Finasteride 5 mg 02/13/23 10:41 02/16/23 08:35 Finasteride 5 Mg Tablet PO 5 mg DAILY PH[place]ENIX Administration Furosemide 20 mg 02/15/23 09:00 02/16/23 08:35 Furosemide 20 Mg Tablet PO 02/17/23 00:01 20 mg DAILY PH[place]ENIX Administration Lactulose 10 gm 02/14/23 08:09 02/16/23 12:04 Lactulose 10 Gm /15 Ml Udc PO 10 gm TID PRN Administration Constipation Lorazepam 0.5 mg 02/13/23 12:35 02/16/23 00:23 Lorazepam 0.5 Mg Tablet PO 0.5 mg QPM PRN Administration Insomnia Medroxyprogesterone Acetate 10 mg 02/13/23 11:00 02/16/23 08:35 Medroxyprogesterone 2.5 Mg Tablet PO 10 mg BID PH[place] Administration Ondansetron HCl 4 mg 02/12/23 20:48 02/16/23 00:22 Ondansetron 4 Mg/2 Ml Vial IVP 4 mg Q6HR PRN Administration Nausea / Vomiting Pantoprazole Sodium 40 mg 02/14/23 07:00 02/16/23 06:13 Pantoprazole 40 Mg Tablet PO 40 mg QDAC PHOENIX Administration Alpha Lipoic Acid 1 each 02/16/23 17:00 02/16/23 17:07 200 Mg Capsule PO 1 each BIDWM PH[place]IX Administration Prednisone 5 mg 02/16/23 07:00 02/16/23 13:24 Prednisone 5 Mg Tablet PO 5 mg 0700,1400 PH[place]IX Administration Sodium Chloride 10 ml 02/12/23 20:48 02/15/23 06:42 Sodium Chloride Flush 0.9% 10 Ml Syringe IVP 10 ml PRN PRN Administration NEEDED PER PROVIDER ORDERS Sodium Chloride 10 ml 02/13/23 01:00 02/16/23 17:07 Sodium Chloride Flush 0.9% 10 Ml Syringe IVP 10 ml 0100,0900,1700 [place]IX Administration Tamsulosin HCl 0.4 mg 02/13/23 10:40 02/16/23 08:35 Tamsulosin 0.4 Mg Capsule PO 0.4 mg DAILY [place]IX Administration Trazodone HCl 150 mg 02/13/23 21:00 02/15/23 21:30 Trazodone 50 Mg Tablet PO 150 mg QPM PH[place]IX Administration - Lab Result Fish Bone Diagrams: 02/17/23 05:18 02/17/23 05:18 - Additional Planning My Orders: My Active Orders 02/16/23 07:00 predniSONE [Deltasone] 5 mg PO 0700,1400 02/16/23 08:01 Orthostatic [Vital Signs - Orthostatic] [RC] DAILY 02/16/23 Dinner DIET [Dysphagia - Puree] [DIET] 02/16/23 17:00 Patient Own Med [Patient Own Medication] 1 each PO BIDWM 02/17/23 05:00 BMP - BASIC METABOLIC PANEL [CHEM] DAILYLAB CBC - COMP BLD CT W/AUTO DIFF [HEME] DAILYLAB MAGNESIUM [CHEM] DAILYLAB 02/17/23 Lunch DIET [Soft (Low Fiber) Diet] [DIET] Subjective - Subjective Patient Reports: Other (He has had no BM for nearly 24 hours, after having diarrhea too numerous to count the day before) Objective Vital Signs: Vital Signs - 24 hr 02/15/23 02/15/23 02/16/23 20:47 23:00 00:31 Temperature 36.9 C 36.6 C Heart Rate [ 62 56 L Brachial] Respiratory 20 22 Rate Blood Pressure 148/82 H [Left Brachial artery] Blood Pressure 142/77 H 146/72 H [Right Brachial artery] O2 Saturation 99 97 If not protocol 2 : Oxygen Flow, liters/minute 02/16/23 02/16/23 02/16/23 06:00 08:26 13:00 Temperature 36.8 C 36.7 C Heart Rate [ 54 L 69 70 Brachial] Respiratory 18 18 18 Rate Blood Pressure [Left Brachial artery] Blood Pressure 130/82 H 147/76 H 145/80 H [Right Brachial artery] O2 Saturation 97 94 94 If not protocol 1.5 : Oxygen Flow, liters/minute 02/16/23 02/16/23 02/16/23 13:33 15:13 16:41 Temperature 37.3 C 37.1 C Heart Rate [ 55 L 64 Brachial] Respiratory 20 Rate Blood Pressure [Left Brachial artery] Blood Pressure 140/83 H 157/81 H [Right Brachial artery] O2 Saturation 95 If not protocol : Oxygen Flow, liters/minute 02/16/23 17:58 Temperature 37.1 C Heart Rate [ Brachial] Respiratory Rate Blood Pressure [Left Brachial artery] Blood Pressure [Right Brachial artery] O2 Saturation If not protocol : Oxygen Flow, liters/minute Oxygen O2 Source Room air I&O (Last 24 Hrs): Intake and Output Totals x24h 02/14/23 02/15/23 02/16/23 23:59 23:59 23:59 Intake Total 3683.000 1600 1780 Output Total 1175 550 750 Balance 2508.000 1050 1030 General: Alert, Oriented x3 HEENT: Mucous membr. moist/pink Neck: Supple Neuro: Alert, Non Focal Cardiovascular: Regular rate Respiratory: No respiratory distress Abdomen: Soft Extremities: No clubbing, No edema - Results Results: Laboratory Results WBC 14.4 x10^3/uL (4.8-10.8) H 02/16/23 04:52 RBC 3.02 10^6/uL (4.70-6.10) L 02/16/23 04:52 Hgb 9.1 g/dL (14.0-18.0) L 02/16/23 04:52 Hct 28.4 % (42.0-52.0) L 02/16/23 04:52 MCV 94.0 fL (80.0-94.0) 02/16/23 04:52 MCH 30.1 pg (27.0-31.0) 02/16/23 04:52 MCHC 32.0 g/dL (32.0-36.0) 02/16/23 04:52 RDW 18.5 % (12.0-15.0) H 02/16/23 04:52 Plt Count 234 10^3/uL (130-450) 02/16/23 04:52 MPV 9.2 fL (7.4-11.4) 02/16/23 04:52 Neut # (Auto) Not Reportable 02/16/23 04:52 Lymph # (Auto) Not Reportable 02/16/23 04:52 [place] # (Auto) Not Reportable 02/16/23 04:52 Eos # (Auto) Not Reportable 02/16/23 04:52 Baso # (Auto) Not Reportable 02/16/23 04:52 Absolute Nucleated RBC Not Reportable 02/16/23 04:52 Total Counted 100 02/16/23 04:52 Band Neuts % (Manual) 1 % (0-10) 02/16/23 04:52 Abnorm Lymph % (Manual) 0 % 02/16/23 04:52 Metamyelocytes % 3 % (-0) H 02/16/23 04:52 Myelocytes % 1 % (-0) H 02/16/23 04:52 Nucleated RBC % Not Reportable 02/16/23 04:52 Neutrophils # (Manual) 12.2 10^3/uL (1.5-6.6) H 02/16/23 04:52 Lymphocytes # (Manual) 0.9 10^3/uL (1.5-3.5) L 02/16/23 04:52 Monocytes # (Manual) 0.7 10^3/uL (0.0-1.0) 02/16/23 04:52 Eosinophils # (Manual) 0.0 10^3/uL (0-0.7) 02/16/23 04:52 Basophils # (Manual) 0.0 10^3/uL (0-0.1) 02/16/23 04:52 Nucleated RBCs 1 % 02/16/23 04:52 Differential Comment MANUAL DIFFERENTIAL 02/16/23 04:52 Manual Slide Review Indicated 02/15/23 07:38 WBC Morphology NORMAL APPEARANCE (NORMAL) 02/16/23 04:52 Platelet Estimate NORMAL (130-450,000) (NORMAL) 02/16/23 04:52 Platelet Morphology NORMAL APPEARANCE (NORMAL) 02/16/23 04:52 RBC Morph Micro Appear 2+ ANISOCYTOSIS (NORMAL) 1+ POLYCHROMASIA (NORMAL) 1+ BASO STIPPLING (NORMAL) 1+ OVALOCYTES (NORMAL) 1+ TEARDROP CELLS (NORMAL) 02/16/23 04:52 RBC Morph Micro Appear 2+ ANISOCYTOSIS (NORMAL) 1+ POLYCHROMASIA (NORMAL) 1+ BASO STIPPLING (NORMAL) 1+ OVALOCYTES (NORMAL) 1+ TEARDROP CELLS (NORMAL) 02/16/23 04:52 RBC Morph Micro Appear 2+ ANISOCYTOSIS (NORMAL) 1+ POLYCHROMASIA (NORMAL) 1+ BASO STIPPLING (NORMAL) 1+ OVALOCYTES (NORMAL) 1+ TEARDROP CELLS (NORMAL) 02/16/23 04:52 RBC Morph Micro Appear 2+ ANISOCYTOSIS (NORMAL) 1+ POLYCHROMASIA (NORMAL) 1+ BASO STIPPLING (NORMAL) 1+ OVALOCYTES (NORMAL) 1+ TEARDROP CELLS (NORMAL) 02/16/23 04:52 RBC Morph Micro Appear 2+ ANISOCYTOSIS (NORMAL) 1+ POLYCHROMASIA (NORMAL) 1+ BASO STIPPLING (NORMAL) 1+ OVALOCYTES (NORMAL) 1+ TEARDROP CELLS (NORMAL) 02/16/23 04:52 Sodium 143 mmol/L (135-145) 02/16/23 04:52 Potassium 3.5 mmol/L (3.5-5.0) 02/16/23 04:52 Chloride 108 mmol/L (101-111) 02/16/23 04:52 Carbon Dioxide 26 mmol/L (21-32) 02/16/23 04:52 Anion Gap 9.0 (6-13) 02/16/23 04:52 BUN 33 mg/dL (6-20) H 02/16/23 04:52 Creatinine 1.1 mg/dL (0.6-1.2) 02/16/23 04:52 Estimated GFR (MDRD) 67 (>89) L 02/16/23 04:52 Glucose 134 mg/dL (70-100) H 02/16/23 04:52 Lactic Acid 1.9 mmol/L (0.5-2.2) 02/12/23 18:07 Calcium 8.1 mg/dL (8.5-10.3) L 02/16/23 04:52 Magnesium 1.8 mg/dL (1.7-2.8) 02/15/23 07:38 Total Bilirubin 0.5 mg/dL (0.2-1.0) 02/13/23 04:40 AST 16 IU/L (10-42) 02/13/23 04:40 ALT 27 IU/L (10-60) 02/13/23 04:40 Alkaline Phosphatase 104 IU/L (42-121) 02/13/23 04:40 Troponin I High Sens 9.7 ng/L (2.3-19.7) 02/12/23 21:08 B-Natriuretic Peptide 255 pg/mL (5-100) H 02/15/23 07:38 Total Protein 4.9 g/dL (6.7-8.2) L 02/13/23 04:40 Albumin 2.5 g/dL (3.2-5.5) L 02/13/23 04:40 Globulin 2.4 g/dL (2.1-4.2) 02/13/23 04:40 Albumin/Globulin Ratio 1.0 (1.0-2.2) 02/13/23 04:40 Lipase 43 U/L (22-51) 02/12/23 17:54 Urine Color YELLOW 02/12/23 20:21 Urine Clarity CLEAR (CLEAR) 02/12/23 20:21 Urine pH 6.0 PH (5.0-7.5) 02/12/23 20:21 Ur Specific Orient 1.010 (1.002-1.030) 02/12/23 20:21 Urine Protein NEGATIVE mg/dL (NEGATIVE) 02/12/23 20:21 Urine Glucose (UA) NEGATIVE mg/dL (NEGATIVE) 02/12/23 20:21 Urine Ketones NEGATIVE mg/dL (NEGATIVE) 02/12/23 20:21 Urine Occult Blood NEGATIVE (NEGATIVE) 02/12/23 20:21 Urine Nitrite NEGATIVE (NEGATIVE) 02/12/23 20:21 Urine Bilirubin NEGATIVE (NEGATIVE) 02/12/23 20:21 Urine Urobilinogen 0.2 (NORMAL) E.U./dL (NORMAL) 02/12/23 20:21 Ur Leukocyte Esterase NEGATIVE (NEGATIVE) 02/12/23 20:21 Ur Microscopic Review NOT INDICATED 02/12/23 20:21 Urine Culture Comments NOT INDICATED 02/12/23 20:21 Stl C. diff Tox B Gene POSITIVE (NEGATIVE) A* 02/14/23 18:50 Last Dose Date 02/15/23 02/15/23 07:38 Last Dose Time 0814 02/15/23 07:38 Vancomycin Trough 18.0 ug/mL (10.0-20.0) 02/15/23 07:38 Blood Type O NEGATIVE 02/12/23 18:07 Blood Type Recheck O NEGATIVE 02/12/23 17:54 Antibody Screen NEGATIVE 02/12/23 18:07 Sepsis Event Note (H) - Evaluation Possible source of Sepsis: positive: Unknown
[2023-02-16] MEDS: traZODone 50 MG TABLET PO SCH (21:16)
[2023-02-16] MEDS: ATORVASTATIN 40 MG TABLET PO SCH (21:16)
[2023-02-17 05:36] LABS: BASOPHILS % (AUTO) 0.3 %; HCT - HEMATOCRIT 28.9 % (42.0-52.0); HGB - HEMOGLOBIN 9.3 g/dL (14.0-18.0); LYMPHOCYTES % (AUTO) 7.3 %; MEAN CORPUSCULAR HEMOGLOBIN 30.2 pg (27.0-31.0); MEAN CORPUSCULAR HGB CONC 32.2 g/dL (32.0-36.0); MEAN CORPUSCULAR VOLUME 93.8 fL (80.0-94.0); MEAN PLATELET VOLUME 8.9 fL (7.4-11.4); MONOCYTES % (AUTO) 8.7 %; NEUTROPHILS % (AUTO) 74.8 %; PLT - PLATELET COUNT 241 10^3/uL (130-450); RED BLOOD COUNT 3.08 10^6/uL (4.70-6.10); RED CELL DISTRIBUTION WIDTH 18.6 % (12.0-15.0); WHITE BLOOD COUNT 11.6 x10^3/uL (4.8-10.8)
[2023-02-17 05:42] LABS: ABNORMAL LYMPHS % (MANUAL) 0 %
[2023-02-17 05:52] LABS: CALCIUM 8.1 mg/dL (8.5-10.3); MAGNESIUM 1.7 mg/dL (1.7-2.8); POTASSIUM 2.9 mmol/L (3.5-5.0)
[2023-02-17] MEDS: PANTOPRAZOLE 40 MG TABLET PO SCH (05:54)
[2023-02-17] MEDS: predniSONE 5 MG TABLET PO SCH ×2 (05:54→14:14)
[2023-02-17] MEDS: ACETAMINOPHEN 500 MG TABLET PO SCH ×2 (05:55→14:14)
[2023-02-17 05:58] LABS: BAND NEUTROPHILS % (MANUAL) 1 %; EOSINOPHILS # (MANUAL) 0.2 10^3/uL (0-0.7); LYMPHOCYTES # (MANUAL) 0.7 10^3/uL (1.5-3.5); LYMPHOCYTES % (MANUAL) 6 %; METAMYELOCYTES % (MANUAL) 1 %; MONOCYTES # (MANUAL) 0.3 10^3/uL (0.0-1.0); MYELOCYTES % (MANUAL) 4 %; NEUTROPHILS # (MANUAL) 9.7 10^3/uL (1.5-6.6)
[2023-02-17 06:02] LABS: DIFFERENTIAL COMMENT MANUAL DIFFERENTIAL; PLATELET ESTIMATE, MANUAL NORMAL (130-450,000) (NORMAL); PLATELET MORPHOLOGY NORMAL APPEARANCE (NORMAL); WBC MORPHOLOGY (MULTIPLE) NORMAL APPEARANCE (NORMAL)
[2023-02-17] MEDS: FINASTERIDE 5 MG TABLET PO SCH (08:58)
[2023-02-17] MEDS: SODIUM CHLORIDE FLUSH 0.9% 10 ML SYRINGE IVP SCH ×2 (08:58→16:22)
[2023-02-17] MEDS: ASPIRIN EC 325 MG TABLET PO SCH (08:58)
[2023-02-17] MEDS: SODIUM CHLORIDE FLUSH 0.9% 10 ML SYRINGE IVP PRN (08:58)
[2023-02-17] MEDS: TAMSULOSIN 0.4 MG CAPSULE PO SCH (08:58)
[2023-02-17] MEDS: ALPHA LIPOIC ACID PO SCH ×3 (08:59→16:28)
[2023-02-17] MEDS ORDERED: POTASSIUM BICARB 25 MEQ TABLET PO ONE (11:14)
[2023-02-17] MEDS: VANCOMYCIN 125 MG CAPSULE PO SCH ×3 (12:04→16:26)
--- NOTE | 2023-02-17 13:37 | Discharge Plan ---
Discharge Plan Problem Reviewed?: Yes Disposition: Home, Self Care Condition: Fair Prescriptions: hydroCHLOROthiazide [Hydrodiuril] 25 mg PO DAILY #30 tablet Furosemide [Lasix] 20 mg PO DAILY #2 tablet lisinopriL [Lisinopril] 10 mg ORAL DAILY #15 tab Vancomycin [Vancocin] 125 mg PO QID #22 cap Diet: Soft Activity Restrictions: Activity as Tolerated Shower Restrictions: No Driving Restrictions: No Instruction Topics: Clostridium Difficile Infec Health Concerns: You were hospitalized after you very nearly fainted and had a documented very low blood pressure. The blood pressure improved with IV fluids. You had a very elevated white blood count and an abnormal finding on yout CT scan in the pelvis, therefore you were treated with IV antibiotics, in case that was an abscess, or in case an infection was the cause for your high white count and low blood pressure. No cultures have grown any abnormal bacteria. After discussing your hospital course yesterday 02/[address] Canela, those IV antibiotics were discontinued and you were monitored for 24 hours and everything remained stable. Therefore you are being discharged home today. Please discussed the finding of that mass between your rectum and your prostate, with your Urologist and your Oncologist, for further management. You did develop diarrhea while here and it was tested and found to be positive for bacteria called C. difficile. You are being discharged home to take 5 more days of oral antibiotic, Vancomycin. The new prescription was electronically sent to your [facility] pharmacy in [place]. You may resume using Lactulose if needed for constipation. If you should redevelop diarrhea, you may start using a probiotic. After receiving IV fluids at an aggressive rate on the first day, you developed fluid buildup in your lungs and had shortness of breath and developed ankle swelling. You got several days of Lasix to eliminate that lung fluid. You are being discharged home to take Lasix for 2 more days. Also, because of that lung and leg fluid and the "stiff heart" seen on Echo and your occasional very slow heart rate and skipped beats, it is recommended that you have a Cardiology outpatient evaluation. I discussed with you the possibility to see Dr. Reilly Cho, Early Childhood Education Specialist from [facility], who comes to this clinic here every other . In addition, you really need to establish care with a General Practitioner. My recommendation was to contact Dr. Lien Payton, right here in [place]. A list of other primary care providers has been given to you by our staff. Please resume taking your HCTZ after the 2 days of Lasix and resume the Lisinopril daily tomorrow, at half its dose, for blood pressure control. Plan of Treatment: As above. Care Goals: Improvement in symptoms and stabilization are the goals. Assessment: The patient understands and is agreeable with the plan. Additional Instructions or Follow Up instructions: If you have new or worsening symptoms, call your medical providers for advice, or come to the ER. Follow-Up Care: [facility] - Medical (This is where Arnulfo Cho sees Cardiology patients. Depending on your health insurance, you can make your own appointment or get a referral to see him. [phone], ext [phone].) No Smoking: If you smoke, Please STOP! Call for help. Follow-up with: Fermin Canela MD [Physician No Access] -
--- NOTE | 2023-02-17 17:06 | DISCHARGE SUMMARY ---
Discharge Summary Admit Date: 02/12/23 Discharge Date: 02/17/23 Discharging Provider: Dr Charlotte Morgan Primary Care Provider: None Code Status: Attempt Resuscitation Condition at Discharge: Fair Discharge Disposition: 01 Home, Self Care - HPI History of Present Illness: 67 y old male with PMH HTN of metastatic prostate cancer on chemo, last chemo 10 days ago. He takes chlorthalidone and Lisinopril for HTN and he took these today. He was walking and felt lightheaded, had to hold onto to his car, a friend brought him a chair and he stabilized after sitting for 15 minutes but then when he stood up was near syncopal. He tried measuring his BP and kept getting error and then finally it read 50/32 and he then asked his friend to drive him into the ER. The friend had to support him under his arms because he could hardly walk in to the hospital. Denies LOC or head injury. Denies fever, CASTELLANOS, Cough, chest pain, SOB, nausea, vomiting, diarrhea, symptoms On presenation, pt had a documented low blood pressure here of 70/30, which improved with iv fluids started in the ER. He was afebrile. Labs showed WBC 17.5, BUN 37, Pulmonologist 1.7. Lactic acid 1.7. His CXR was neg. CT abdomen/pelvis showed no acute findings, but a mass seen previously and seen now, is between his rectum and prostate, was interpreted as a possible abscess. In ER, pt received IVF, blood cultures were drawn and he received empiric IV Cefepime and IV Vanco. Pt is admitted due to severe sepsis, hypotension, syncope or near-syncope, BECKY, and dehydration. - HOSPITAL COURSE Hospital Course: 1) Hypotension He presented with hypotension, and leukocytosis w/ WBC 17.5 and a L shift, but no elevated lactic acid level or bilirubin, no fever or obvious source on a physical exam, but he has continued finding of the mass in his pelvis, which was read as a possible abscess, by the Radiologist. After iv fluids for a day, he was no longer hypotensive. After several days of empiric iv Vanco and Zosyn, with no source of infection confirmed, the antibx were stopped, after discussing with his Oncologist Dr Canela by phone. After the antibiotics were stopped and he had no symptoms or worsening WBC, thus hypotension from sepsis was no longer presumed to be present, It was felt to be from volume depletion and Hydrodiuril use. (2) Leukocytosis He presented with hypotension, and leukocytosis w/ WBC 17.5 and a L shift, but no elevated lactic acid level or bilirubin, no obvious source on a physical exam, but he has a continued finding of the mass in his pelvis, which was read as a possible abscess, by the Radiologist. He was started on empiric IV antibiotics Zosyn and Vanco. His WBC decreased from 17.5>> 13>>14, there was no fever, and blood culturesweare negative. The patient's oncologist at [facility] Dr. Canela and I reviewed his course. Dr. Canela recommended that since there is no source of infection, to stop his empiric antibiotics, watch for 24 hours and if he is better, he would not need resumption of IV antibiotics, which was done. He was then discharged home. (3) Pelvic mass in a male CT abdomen was done after the ED provider spoke to an on-call Oncologist from [facility] who was concerned that the patient may be septic from seeding from his abdomen or retroperitoneal source. The CT showed this mass, which is between the rectum and prostate, which has been seen before. The Radiologist read this as the possibility of being an abscess. When I spoke to Dr Canela, he was not overly concerned about the mass since he had no fever on admission and no source of infection has declared itself. The patient reported that no one at [facility] has addressed the mass in his pelvis for a long time. He also sees a Urologist at , Dr Rutledge, and that provider has not addressed that mass for a while either, he said. Patient was advised to bring up this diagnosis with his providers, who will need to manage this after discharge (4) C. difficile diarrhea Normally he is "always constipated" and he says and he needs Lactulose daily or up to 3 times daily to have a BM. On 02/14 he had 3 liquid diarrheal stools without pain or tenderness. The diarrhea was tested and was C. difficile positive. He was started on oral Vancomycin. He then had distension of his abdomen with hypertympani on exam, cinsistent with gas, which improved with a diet order change. Then he went back to being constipated. He was discharged to take a week of vancomycin orally (5) Hypokalemia He had a low K at admission, probably from potassium losses from being on Hydrodiuril. His K was replaced. (6) Pulmonary edema The day after starting iv fluids, he got tachypneic and had an inspiratory rat tle upper airway sound. Chest x-ray showed bibasilar volume overload. I did a bedside Echo which showed LVH with preserved LVEF and mild diastolic dysfunction present. We stopped iv fluids and started him Lasix. I suspect this man has a very narrow range of proper hydration for him; if he is too dry he is hypotensive, if he has too much fluid he gets pulmonary edema. He improved and was discharged to take 2 more days of Lasix then advised to resume the Hydrodiuril.. (7) Sleep apnea on CPAP The patient remembered this history (on 02/14) and said he does use a CPAP unit but did not have that CPAP machine here and had nobody to go to his RV to get the CPAP machine and bring it to the hospital. (8) Acute on CKD The patient usually runs a creatinine of 1.2-1.3. He presented here with a creatinine of 1.7 and after IV fluids, creat improved to 1.1 -1.2 (9) HTN We were not giving his 2 blood pressure meds, HCTZ and Lisinopril, due to presenting with marked hypotension. At time of discharge, he was told to go back on Hydrodiuril, but to decrease Lisinopril to half. (10) Hx of TIA Two months ago he lost vision in his right eye and it cleared up by the next day. The following day he reported the symptoms and was sent to the ER and admitted to where he underwent a work-up for TIA. He reports that there were no major findings. He is on daily aspirin now. (11) Prostate cancer with mets to bone As per Hx. He is on chemo which makes him immunocompromised and at risk for infections. He gets his prostate cancer care at [facility], 3 times a month. (12) Syncope On the day of admission, he was near syncopal and his BP machine read 50/32. He had a documented low blood pressure at presentation here of 70/30, which improved with iv fluids. We did not use his 2 blood pressure meds, HCTZ and Lisinopril, due to that hypotension. In addition, we initially thought his hypotension was caused by sepsis, and he had the management as described in #1 & #2. - ALLERGIES Allergies/Adverse Reactions: Allergies Allergy/AdvReac Type Severity Reaction Status Date / Time No Known Drug Allergies Allergy Verified 02/12/23 17:38 - MEDICATIONS Home Medications: Ambulatory Orders Medication Instructions Recorded Confirmed Finasteride [Proscar] 5 mg PO DAILY 11/09/22 02/13/23 Medroxyprogesterone Acetate 10 mg PO BID 11/09/22 02/13/23 [Provera] Tamsulosin HCl [Flomax] 0.4 mg ORAL DAILY 11/09/22 02/13/23 Trazodone HCl 150 mg PO HS 11/09/22 02/13/23 Acetaminophen [Tylenol] 1,000 mg PO TID 02/13/23 02/13/23 Aspirin EC [Ecotrin] 325 mg PO DAILY 02/13/23 02/13/23 Atorvastatin Calcium 40 mg PO QPM 02/13/23 02/13/23 Lactulose 10 gm PO TID 02/13/23 02/13/23 Ondansetron [Ondansetron Odt] 8 mg PO Q6H PRN 02/13/23 02/13/23 Pantoprazole [Protonix] 40 mg PO DAILY 02/13/23 02/13/23 Prochlorperazine Maleate 10 mg PO Q4HR PRN 02/13/23 02/13/23 [Compazine] fentaNYL 12 MCG PATCH [Duragesic 1 patch TOP Q3D 02/13/23 02/13/23 12mcg patch] predniSONE [Deltasone] 5 mg PO 0700,1400 02/13/23 02/13/23 Alpha Lipoic Acid 200 mg PO BIDWM 02/16/23 02/16/23 Furosemide [Lasix] 20 mg PO DAILY #2 tablet 02/17/23 Vancomycin [Vancocin] 125 mg PO QID #22 cap 02/17/23 hydroCHLOROthiazide [Hydrodiuril] 25 mg PO DAILY #30 tablet 02/17/23 lisinopriL [Lisinopril] 10 mg ORAL DAILY #15 tab 02/17/23 Vancomycin [Vancocin] 125 mg PO QID #22 cap 05/04/23 - PHYSICAL EXAM AT DISCHARGE General Appearance: positive: No acute distress, Alert Eyes Bilateral: positive: Normal inspection, EOMI ENT: positive: ENT inspection nml, No signs of dehydration Neck: positive: Nml inspection, No JVD Respiratory: positive: Breath sounds nml, Other (Fine wheeze heard in upper airway) Cardiovascular: positive: Regular rate & rhythm, No murmur Abdomen: positive: Non-tender, Nml bowel sounds, No distention Skin: positive: Warm, Dry, Pallor Extremities: positive: Non-tender, Other (1+ ankle edema) Neurologic/Psychiatric: positive: Oriented x3, Motor nml - LABS Result Diagrams: 02/17/23 05:18 02/17/23 05:18 - DIAGNOSTIC IMAGING Diagnostic Imaging Results: Final report reviewed - SEPSIS Possible source of Sepsis: Unknown - FOLLOW UP Follow Up: Advised to establish with a PCP to have a local doctor. Keep upcoming appointment with Oncologist. See Urologist for follow-up as well. - TIME SPENT Time Spent in Discharge (Minutes): 50
[2023-02-17 17:37] VITALS: BP 166/83
== END 2023-02-17 17:55 | disposition home or self-care (01) | DRG 315 ==
LOC: ED 17:31 → MS2 20:48
PROVIDERS: ADMIT Internal Medicine; ATTEND Internal Medicine
DX: A41.9 Sepsis, unspecified organism (principal); I95.9 Hypotension, unspecified; A04.72 Enterocolitis due to Clostridium difficile, not specified as recurrent; C79.51 Secondary malignant neoplasm of bone; N17.9 Acute kidney failure, unspecified; I13.0 Hypertensive heart and chronic kidney disease with heart failure and stage 1 through stage 4 chronic kidney disease, or unspecified chronic kidney disease; I10 Essential (primary) hypertension; I50.30 Unspecified diastolic (congestive) heart failure; R07.9 Chest pain, unspecified; I95.2 Hypotension due to drugs; C61 Malignant neoplasm of prostate; R55 Syncope and collapse; D72.829 Elevated white blood cell count, unspecified; E86.9 Volume depletion, unspecified; T50.2X5A Adverse effect of carbonic-anhydrase inhibitors, benzothiadiazides and other diuretics, initial encounter; R19.09 Other intra-abdominal and pelvic swelling, mass and lump; K59.00 Constipation, unspecified; E87.6 Hypokalemia; G47.30 Sleep apnea, unspecified; N18.9 Chronic kidney disease, unspecified; E86.0 Dehydration; F41.9 Anxiety disorder, unspecified; Z79.82 Long term (current) use of aspirin; Z79.899 Other long term (current) drug therapy; Z86.73 Personal history of transient ischemic attack (TIA), and cerebral infarction without residual deficits; Z92.21 Personal history of antineoplastic chemotherapy
CPT/HCPCS: 36415; 71045; 74177; 80048; 80053; 80202; 81003; 83605; 83690; 83735; 83880; 84484; 85025; 86850; 86900; 86901; 87040; 87493; 93005; 93306; 96361; 96365; 99285; A9270; J3370; J7512; J8499; Q9967; 81001; 87086

== ENCOUNTER 2023-08-12 11:09 | Outpatient (CLI) | payer MEDICARE, OTHER, MEDICAID ==
[2023-08-12 11:14] LABS: BASOPHILS % (AUTO) 0.1 %; EOSINOPHILS # (AUTO) 0.1 10^3/uL (0.0-0.7); EOSINOPHILS % (AUTO) 0.8 %; HCT - HEMATOCRIT 30.5 % (42.0-52.0); HGB - HEMOGLOBIN 9.1 g/dL (14.0-18.0); LYMPHOCYTES # (AUTO) 0.6 10^3/uL (1.5-3.5); LYMPHOCYTES % (AUTO) 6.9 %; MEAN CORPUSCULAR HEMOGLOBIN 29.6 pg (27.0-31.0); MEAN CORPUSCULAR HGB CONC 29.8 g/dL (32.0-36.0); MEAN CORPUSCULAR VOLUME 99.3 fL (80.0-94.0); MEAN PLATELET VOLUME 9.4 fL (7.4-11.4); MONOCYTES # (AUTO) 0.9 10^3/uL (0.0-1.0); MONOCYTES % (AUTO) 10.3 %; NEUTROPHILS # (AUTO) 6.9 10^3/uL (1.5-6.6); NEUTROPHILS % (AUTO) 81.3 %; PLT - PLATELET COUNT 310 10^3/uL (130-450); RED BLOOD COUNT 3.07 10^6/uL (4.70-6.10); RED CELL DISTRIBUTION WIDTH 17.5 % (12.0-15.0); WHITE BLOOD COUNT 8.4 x10^3/uL (4.8-10.8)
[2023-08-12 12:10] LABS: ALBUMIN 3.7 g/dL (3.2-5.5); ALBUMIN/GLOBULIN RATIO 1.3 (1.0-2.2); BILIRUBIN,TOTAL 0.4 mg/dL (0.2-1.0); CALCIUM 9.2 mg/dL (8.5-10.3); CREATININE 0.9 mg/dL (0.6-1.3); POTASSIUM 3.9 mmol/L (3.5-4.5); TOTAL PROTEIN 6.6 g/dL (6.4-8.9)
== END 2023-08-12 11:10 | disposition home or self-care (01) ==
LOC: LAB.R 11:09
PROVIDERS: ATTEND Registered Nurse
DX: C61 Malignant neoplasm of prostate (principal); D64.9 Anemia, unspecified
CPT/HCPCS: 80053; 85025

== ENCOUNTER 2023-08-20 13:35 | Outpatient (CLI) | payer MEDICARE, OTHER, MEDICAID ==
[2023-08-20 06:48] LABS: GLUCOSE, URINE (UA) NEGATIVE (NEGATIVE); KETONES,URINE (UA) 15 mg/dL (NEGATIVE); LEUKOCYTE ESTERASE, URINE NEGATIVE (NEGATIVE); NITRITE,URINE POSITIVE (NEGATIVE); OCCULT BLOOD,URINE LARGE (NEGATIVE); PH,URINE 5.5 PH (5.0-7.5); PROTEIN,URINE 100 mg/dL (NEGATIVE); UROBILINOGEN,URINE 1 (NORMAL) E.U./dL (NORMAL)
[2023-08-20 07:05] LABS: BACTERIA,URINE None Seen /HPF (None Seen); BILIRUBIN,URINE NEGATIVE (NEGATIVE); CLARITY,URINE HAZY (CLEAR); ICTOTEST,URINE NEGATIVE; RBC,URINE TNTC /HPF (0-5); SQUAMOUS EPITHELIAL CELL,UR NONE SEEN (<= Few); WBC,URINE 0-3 /HPF (0-3)
[2023-08-20 07:06] LABS: MUCUS,URINE Few Strands
[2023-08-20 13:45] LABS: BASOPHILS % (AUTO) 0.3 %; EOSINOPHILS # (AUTO) 0.1 10^3/uL (0.0-0.7); EOSINOPHILS % (AUTO) 1.3 %; HCT - HEMATOCRIT 30.5 % (42.0-52.0); HGB - HEMOGLOBIN 8.9 g/dL (14.0-18.0); LYMPHOCYTES # (AUTO) 0.6 10^3/uL (1.5-3.5); LYMPHOCYTES % (AUTO) 7.6 %; MEAN CORPUSCULAR HEMOGLOBIN 28.4 pg (27.0-31.0); MEAN CORPUSCULAR HGB CONC 29.2 g/dL (32.0-36.0); MEAN CORPUSCULAR VOLUME 97.4 fL (80.0-94.0); MEAN PLATELET VOLUME 9.6 fL (7.4-11.4); MONOCYTES % (AUTO) 12.8 %; NEUTROPHILS # (AUTO) 5.8 10^3/uL (1.5-6.6); NEUTROPHILS % (AUTO) 77.1 %; NRBC ABSOLUTE COUNT (AUTO) 0.02 x10^3/uL; NUCLEATED RED BLOOD CELLS AUTO 0.3 /100WBC; PLT - PLATELET COUNT 328 10^3/uL (130-450); RED BLOOD COUNT 3.13 10^6/uL (4.70-6.10); RED CELL DISTRIBUTION WIDTH 17.6 % (12.0-15.0); WHITE BLOOD COUNT 7.5 x10^3/uL (4.8-10.8)
[2023-08-20 14:00] LABS: ALBUMIN 3.7 g/dL (3.2-5.5); ALBUMIN/GLOBULIN RATIO 1.3 (1.0-2.2); BILIRUBIN,TOTAL 0.4 mg/dL (0.2-1.0); CALCIUM 9.2 mg/dL (8.5-10.3); CREATININE 0.9 mg/dL (0.6-1.3); POTASSIUM 3.8 mmol/L (3.5-4.5); TOTAL PROTEIN 6.6 g/dL (6.4-8.9)
== END 2023-08-20 13:36 | disposition home or self-care (01) ==
LOC: LAB.R 13:35
PROVIDERS: ATTEND Registered Nurse
DX: N39.0 Urinary tract infection, site not specified (principal); C61 Malignant neoplasm of prostate; C79.51 Secondary malignant neoplasm of bone
CPT/HCPCS: 80053; 81001; 85025; 87086

== ENCOUNTER 2023-08-21 15:20 | Outpatient (CLI) | payer MEDICARE | END 2023-08-21 15:21 | disposition critical access hospital (66) | LOC: EMS 15:20 | DX: R10.31 Right lower quadrant pain (principal) | CPT/HCPCS: A0425; A0429 ==

== ENCOUNTER 2023-08-21 15:26 | Emergency (ER) | payer MEDICAID, MEDICARE, OTHER ==
[2023-08-21 15:39] VITALS: O2SAT 95
[2023-08-21] MEDS ORDERED: LIDOCAINE 2% URO-JET 5 ML SYRINGE UR STA (15:46)
--- NOTE | 2023-08-21 15:47 | ED Physician Documentation ---
PD HPI ABD PAIN - Stated complaint Stated Complaint: ABD PX - Chief complaint Chief Complaint: Abd Pain - History obtained from History obtained from: Patient - Additional information Additional information: 67-year-old gentleman with metastatic prostate cancer has completed treatment and now is planning on entering hospice with a life expectancy per him of 6 months or so. 2 nights ago started having gross hematuria with clots and starting last night developed progressive abdominal pain and now is retaining urine. PD PAST MEDICAL HISTORY - Past Medical History Past Medical History: Yes Cardiovascular: Hypertension Respiratory: None Neuro: TIA Endocrine/Autoimmune: None GI: Chronic constipation : Other HEENT: None Psych: Anxiety Musculoskeletal: None Derm: None - Past Surgical History Past Surgical History: Yes - Present Medications Home Medications: Ambulatory Orders Medication Instructions Recorded Confirmed Finasteride [Proscar] 5 mg PO DAILY 11/09/22 02/13/23 Medroxyprogesterone Acetate 10 mg PO BID 11/09/22 02/13/23 [Provera] Tamsulosin HCl [Flomax] 0.4 mg ORAL DAILY 11/09/22 02/13/23 Trazodone HCl 150 mg PO HS 11/09/22 02/13/23 Acetaminophen [Tylenol] 1,000 mg PO TID 02/13/23 02/13/23 Aspirin EC [Ecotrin] 325 mg PO DAILY 02/13/23 02/13/23 Atorvastatin Calcium 40 mg PO QPM 02/13/23 02/13/23 Lactulose 10 gm PO TID 02/13/23 02/13/23 Ondansetron [Ondansetron Odt] 8 mg PO Q6H PRN 02/13/23 02/13/23 Pantoprazole [Protonix] 40 mg PO DAILY 02/13/23 02/13/23 Prochlorperazine Maleate 10 mg PO Q4HR PRN 02/13/23 02/13/23 [Compazine] fentaNYL 12 MCG PATCH [Duragesic 1 patch TOP Q3D 02/13/23 02/13/23 12mcg patch] predniSONE [Deltasone] 5 mg PO 0700,1400 02/13/23 02/13/23 Alpha Lipoic Acid 200 mg PO BIDWM 02/16/23 02/16/23 Furosemide [Lasix] 20 mg PO DAILY #2 tablet 02/17/23 Vancomycin [Vancocin] 125 mg PO QID #22 cap 02/17/23 hydroCHLOROthiazide [Hydrodiuril] 25 mg PO DAILY #30 tablet 02/17/23 lisinopriL [Lisinopril] 10 mg ORAL DAILY #15 tab 02/17/23 Vancomycin [Vancocin] 125 mg PO QID #22 cap 02/18/23 - Allergies Allergies/Adverse Reactions: Allergies Allergy/AdvReac Type Severity Reaction Status Date / Time No Known Drug Allergies Allergy Verified 08/21/23 15:35 - Social History Does the pt smoke?: No Smoking Status: Never smoker Does the pt drink ETOH?: No Does the pt have substance abuse?: No - Immunizations Immunizations are current?: Yes PD ED PE NORMAL - Vitals Vital signs reviewed: Yes - General General: Alert and oriented X 3, Other (He appears uncomfortable and is holding a urine jug on his penis despite the fact that he just went to the bathroom.) - Abdomen Abdomen: Other (Suprapubic tenderness with palpable bladder, very large bladder on bedside ultrasound.) - Neuro Neuro: Alert and oriented X 3, Normal speech Results - Vitals Vitals: Vital Signs - 24 hr 08/21/23 08/21/23 15:35 17:14 Temperature 36.5 C Heart Rate 85 94 Respiratory 18 16 Rate Blood Pressure 155/93 H 152/90 H O2 Saturation 95 95 Oxygen O2 Source Room air - Labs Labs: Laboratory Tests 08/21/23 08/21/23 08/21/23 16:00 16:00 16:40 WBC 7.4 RBC 3.11 L Hgb 9.0 L Hct 30.9 L MCV 99.4 H MCH 28.9 MCHC 29.1 L RDW 17.5 H Plt Count 305 MPV 9.2 Neut # (Auto) 5.6 Lymph # (Auto) 0.7 L [place] # (Auto) 0.9 Eos # (Auto) 0.1 Baso # (Auto) 0.0 Absolute Nucleated RBC 0.02 Nucleated RBC % 0.3 Sodium 139 Potassium 3.9 Chloride 102 Carbon Dioxide 27 Anion Gap 10.0 BUN 25 H Creatinine 0.9 Estimated GFR (MDRD) 84 L Glucose 108 H Calcium 9.2 Total Bilirubin 0.4 AST 40 ALT 27 Alkaline Phosphatase 354 H Total Protein 6.7 Albumin 3.7 Globulin 3.0 Albumin/Globulin Ratio 1.2 Lipase 26 Urine Color RED/BLOODY Urine Clarity SL. CLOUDY Urine pH 5.0 Ur Specific [place] 1.025 Urine Protein Urine Glucose (UA) NEGATIVE Urine Ketones 15 H Urine Occult Blood LARGE H Urine Nitrite Urine Bilirubin NEGATIVE Urine Urobilinogen Ur Leukocyte Esterase Urine RBC TNTC H Urine WBC 0-3 Ur Squamous Epith Cells FEW Squamous Urine Bacteria Rare Ur Microscopic Review INDICATED Urine Culture Comments NOT INDICATED PD Medical Decision Making - ED course ED course: 67-year-old gentleman with advanced prostate cancer planning hospice now with acute urinary retention due to hematuria. I personally placed a Dangelo. Initially tried to place a larger three-way but his urethral meatus was fairly small and would only tolerate the usual 16 Setswana Dangelo. After this was placed he had copious urine output that was bloody with relief of his symptoms. CBC notable for anemia, stable from prior values, hemoglobin has been around 9 for the last 6 months or so. CMP notable for elevated alkaline phosphatase likely related to bony metastases and chronic elevation of BUN. Nothing acute. After placing the Dangelo had over a liter out. I flushed his catheter and there was no significant clots and it was only lightly colored with blood. Departure - Departure Disposition: 01 Home, Self Care Clinical Impression: Gross hematuria, Urinary retention, Prostate cancer metastatic to bone Condition: Good Record reviewed to determine appropriate education?: Yes Instructions: ED Catheter Care Dangelo Follow-Up: Suleman Lopez MD [Provider Admit Priv/Credential] - Comments: If the urine in the catheter is pretty clear after a few days the catheter could be removed maybe in 4 to 7 days and you can see if he could urinat as normal. If the urine stays quite bloody or if you are having persistent issues reasonable to follow-up with our urologist, his numbers on this form. e Forms: PCP List Discharge Date/Time: 08/21/23 18:05
[2023-08-21 16:04] LABS: BASOPHILS % (AUTO) 0.1 %; EOSINOPHILS # (AUTO) 0.1 10^3/uL (0.0-0.7); EOSINOPHILS % (AUTO) 1.1 %; HCT - HEMATOCRIT 30.9 % (42.0-52.0); LYMPHOCYTES # (AUTO) 0.7 10^3/uL (1.5-3.5); LYMPHOCYTES % (AUTO) 10.1 %; MEAN CORPUSCULAR HEMOGLOBIN 28.9 pg (27.0-31.0); MEAN CORPUSCULAR HGB CONC 29.1 g/dL (32.0-36.0); MEAN CORPUSCULAR VOLUME 99.4 fL (80.0-94.0); MEAN PLATELET VOLUME 9.2 fL (7.4-11.4); MONOCYTES # (AUTO) 0.9 10^3/uL (0.0-1.0); MONOCYTES % (AUTO) 11.7 %; NEUTROPHILS # (AUTO) 5.6 10^3/uL (1.5-6.6); NRBC ABSOLUTE COUNT (AUTO) 0.02 x10^3/uL; NUCLEATED RED BLOOD CELLS AUTO 0.3 /100WBC; PLT - PLATELET COUNT 305 10^3/uL (130-450); RED BLOOD COUNT 3.11 10^6/uL (4.70-6.10); RED CELL DISTRIBUTION WIDTH 17.5 % (12.0-15.0); WHITE BLOOD COUNT 7.4 x10^3/uL (4.8-10.8)
[2023-08-21 16:19] LABS: ALBUMIN 3.7 g/dL (3.2-5.5); ALBUMIN/GLOBULIN RATIO 1.2 (1.0-2.2); BILIRUBIN,TOTAL 0.4 mg/dL (0.2-1.0); CALCIUM 9.2 mg/dL (8.5-10.3); CREATININE 0.9 mg/dL (0.6-1.3); POTASSIUM 3.9 mmol/L (3.5-4.5); TOTAL PROTEIN 6.7 g/dL (6.4-8.9)
[2023-08-21 16:53] LABS: BILIRUBIN,URINE NEGATIVE (NEGATIVE); GLUCOSE, URINE (UA) NEGATIVE (NEGATIVE); KETONES,URINE (UA) 15 mg/dL (NEGATIVE); OCCULT BLOOD,URINE LARGE (NEGATIVE)
[2023-08-21 16:55] LABS: CLARITY,URINE SL. CLOUDY (CLEAR)
[2023-08-21 17:00] LABS: BACTERIA,URINE Rare /HPF (None Seen); RBC,URINE TNTC /HPF (0-5); SQUAMOUS EPITHELIAL CELL,UR FEW Squamous (<= Few); WBC,URINE 0-3 /HPF (0-3)
[2023-08-21 17:21] VITALS: BP 152/90
== END 2023-08-21 18:05 | disposition home or self-care (01) ==
LOC: EDUNIT# → ED 15:26
DX: C61 Malignant neoplasm of prostate (principal); R33.8 Other retention of urine; R31.0 Gross hematuria; C79.51 Secondary malignant neoplasm of bone; I10 Essential (primary) hypertension
CPT/HCPCS: 36415; 51702; 80053; 81001; 81003; 83690; 85025; 87086; 99283; 99284

== ENCOUNTER 2023-08-28 14:52 | Outpatient (CLI) | payer MEDICARE | END 2023-08-28 14:53 | disposition critical access hospital (66) | LOC: EMS 14:52 | DX: T83.021A Displacement of indwelling urethral catheter, initial encounter (principal) | CPT/HCPCS: A0425; A0429 ==

== ENCOUNTER 2023-08-28 14:57 | Emergency (ER) | payer MEDICARE ==
[2023-08-28] MEDS: LIDOCAINE 2% URO-JET 5 ML SYRINGE UR STA (16:42)
[2023-08-28 16:58] LABS: BILIRUBIN,URINE NEGATIVE (NEGATIVE); GLUCOSE, URINE (UA) NEGATIVE (NEGATIVE); KETONES,URINE (UA) TRACE mg/dL (NEGATIVE); LEUKOCYTE ESTERASE, URINE SMALL (NEGATIVE); NITRITE,URINE POSITIVE (NEGATIVE); OCCULT BLOOD,URINE LARGE (NEGATIVE); PH,URINE 6.5 PH (5.0-7.5); PROTEIN,URINE 30 mg/dL (NEGATIVE); UROBILINOGEN,URINE 0.2 (NORMAL) E.U./dL (NORMAL)
[2023-08-28 17:00] LABS: CLARITY,URINE SL. CLOUDY (CLEAR)
[2023-08-28 17:03] LABS: WBC,URINE >25 /HPF (0-3)
[2023-08-28 17:04] LABS: BACTERIA,URINE Few /HPF (None Seen); SQUAMOUS EPITHELIAL CELL,UR FEW Squamous (<= Few)
[2023-08-28 17:18] VITALS: BP 130/90; O2SAT 96
--- NOTE | 2023-08-28 17:30 | ED Physician Documentation ---
PD HPI MALE - Stated complaint Stated Complaint: CATH ISSUE - Chief complaint Chief Complaint: General - History obtained from History obtained from: Patient, EMS - History of Present Illness Timing - onset: Today Timing - duration: Hours Timing - details: Gradual onset, Still present Associated symptoms: Hematuria, Indwelling catheter, Dangelo problem PD HPI MALE CONTRIB FACTORS: Indwelling catheter Similar symptoms before: Diagnosis (urinary retention) Recently seen: Emergency Dept - Additional information Additional information: Darrius Beebe is a 67-year-old male with stage IV prostate cancer who has completed treatment and is now on hospice. He is expecting to live for about another 6 months with metastases to his bone. He discontinued treatment with a progressive neuropathy. He has subsequently developed urinary retention with clot and was seen in the emergency department on 23 July and had a Dangelo catheter placed. This catheter was removed 5 days later. The patient was unable to void and a second catheter was placed. Today the patient had some issue with blood from the catheter without urine and when nurses attempted to place a catheter they were unable. The patient is currently residing at [facility] in [place]. Review of Systems Constitutional: denies: Fever Ears: denies: Ear pain Nose: denies: Congestion Throat: denies: Sore throat Respiratory: denies: Cough GI: denies: Vomiting, Diarrhea : reports: Hematuria, Dangelo Problem Skin: denies: Rash Musculoskeletal: denies: Neck pain, Back pain, Extremity pain Neurologic: denies: Generalized weakness, Focal weakness, Numbness PD PAST MEDICAL HISTORY - Past Medical History Cardiovascular: Hypertension Respiratory: None Neuro: TIA Endocrine/Autoimmune: None GI: Chronic constipation : Other HEENT: None Psych: Anxiety Musculoskeletal: None Derm: None - Past Surgical History Past Surgical History: Yes - Present Medications Home Medications: Ambulatory Orders Medication Instructions Recorded Confirmed Finasteride [Proscar] 5 mg PO DAILY 11/09/22 02/13/23 Medroxyprogesterone Acetate 10 mg PO BID 11/09/22 02/13/23 [Provera] Tamsulosin HCl [Flomax] 0.4 mg ORAL DAILY 11/09/22 02/13/23 Trazodone HCl 150 mg PO HS 11/09/22 02/13/23 Acetaminophen [Tylenol] 1,000 mg PO TID 02/13/23 02/13/23 Aspirin EC [Ecotrin] 325 mg PO DAILY 02/13/23 02/13/23 Atorvastatin Calcium 40 mg PO QPM 02/13/23 02/13/23 Lactulose 10 gm PO TID 02/13/23 02/13/23 Ondansetron [Ondansetron Odt] 8 mg PO Q6H PRN 02/13/23 02/13/23 Pantoprazole [Protonix] 40 mg PO DAILY 02/13/23 02/13/23 Prochlorperazine Maleate 10 mg PO Q4HR PRN 02/13/23 02/13/23 [Compazine] fentaNYL 12 MCG PATCH [Duragesic 1 patch TOP Q3D 02/13/23 02/13/23 12mcg patch] predniSONE [Deltasone] 5 mg PO 0700,1400 02/13/23 02/13/23 Alpha Lipoic Acid 200 mg PO BIDWM 02/16/23 02/16/23 Furosemide [Lasix] 20 mg PO DAILY #2 tablet 02/17/23 Vancomycin [Vancocin] 125 mg PO QID #22 cap 02/17/23 hydroCHLOROthiazide [Hydrodiuril] 25 mg PO DAILY #30 tablet 02/17/23 lisinopriL [Lisinopril] 10 mg ORAL DAILY #15 tab 02/17/23 Vancomycin [Vancocin] 125 mg PO QID #22 cap 02/18/23 Ciprofloxacin HCl [Cipro] 500 mg PO BID #14 tablet 08/28/23 - Allergies Allergies/Adverse Reactions: Allergies Allergy/AdvReac Type Severity Reaction Status Date / Time No Known Drug Allergies Allergy Verified 08/21/23 15:35 - Social History Does the pt smoke?: No Smoking Status: Never smoker Does the pt drink ETOH?: No Does the pt have substance abuse?: No - Immunizations Immunizations are current?: Yes PD ED PE NORMAL - Vitals Vital signs reviewed: Yes (hypertensive ) - General General: Alert and oriented X 3, No acute distress, Well developed/nourished - HEENT HEENT: Atraumatic, PERRL, EOMI - Neck Neck: Supple, no meningeal sign, No bony TTP - Cardiac Cardiac: RRR, No murmur - Respiratory Respiratory: No respiratory distress, Clear bilaterally - Abdomen Abdomen: Normal bowel sounds, Soft, Other (bladder palpable and tender suprapubic both size and tenderness are mild. ) - Back Back: No CVA TTP, No spinal TTP - Derm Derm: Normal color, Warm and dry, No rash - Extremities Extremities: No edema, Other (There is thenar wasting bilaterally) - Neuro Neuro: Alert and oriented X 3, automatic buffing wheel former 2-12 intact, No motor deficit, No sensory def icit, Normal speech Eye Opening: Spontaneous Motor: Obeys Commands Verbal: Oriented GCS Score: 15 - Psych Psych: Normal mood, Normal affect Results - Vitals Vitals: Vital Signs - 24 hr 08/28/23 08/28/23 08/28/23 15:06 15:09 17:09 Temperature 36.2 C L 36.5 C 36.5 C Heart Rate 96 96 88 Respiratory 18 18 16 Rate Blood Pressure 135/112 H 135/112 H 130/90 H O2 Saturation 94 94 96 Oxygen O2 Source Room air - Labs Labs: Laboratory Tests 08/28/23 16:55 Urine Color DARK YELLOW Urine Clarity SL. CLOUDY Urine pH 6.5 Ur Specific [place] 1.020 Urine Protein 30 H Urine Glucose (UA) NEGATIVE Urine Ketones TRACE Urine Occult Blood LARGE H Urine Nitrite POSITIVE H Urine Bilirubin NEGATIVE Urine Urobilinogen 0.2 (NORMAL) Ur Leukocyte Esterase SMALL H Urine RBC 11-25 H Urine WBC >25 H Ur Squamous Epith Cells FEW Squamous Urine Bacteria Few Ur Microscopic Review INDICATED Urine Culture Comments INDICATED PD Medical Decision Making - ED course Complexity details: reviewed results, re-evaluated patient, considered differential, d/w patient Reviewed Lab Results: Urinalysis sent for evaluation shows a specific gravity of 1.020 it is positive for protein, trace ketones, large occult blood, nitrite and small leukocyte Estrace. There are 11-25 red blood cells per high-powered field and greater than 25 white blood cells per high-powered field. a few bacteria. The specimen does make grade for culture.I interpreted the this urinalysis to indicate the patient has infection. We did not find significant blood in this specimen making the thought of clot retention less likely. This assisted in caring for the patient as draining the bladder was the important aspect and irrigation of the bladder does not look like it will be required. Departure - Departure Disposition: 01 Home, Self Care Clinical Impression: Urinary retention Urinary tract infection Qualifiers: Urinary tract infection type: catheter-associated UTI Indwelling urinary catheter type: indwelling urethral catheter Encounter type: initial encounter Qualified Code(s): T83.511A - Infection and inflammatory reaction due to indwelling urethral catheter, initial encounter; N39.0 - Urinary tract infection, site not specified Condition: Stable Instructions: ED UTI Cystitis Male, ED Retention Urinary Male, ED Catheter Care Dangelo Follow-Up: Suleman Lopez MD [Provider Admit Priv/Credential] - [facility] [place] [Provider Group] Prescriptions: Ciprofloxacin HCl [Cipro] 500 mg PO BID #14 tablet Comments: Darrius, today looks like there is infection in the urine and we do not see evidence today of clot retention. My recommendation is to leave the Dangelo catheter in place and we will start you on some Cipro tomorrow. We have given you an injection of Rocephin today. A follow-up with the urologist Dr. Lopez is indicated. You are on a number of medications some of which you can stop and my recommendation is to follow-up with a primary at the [place] location in [place] for general continued care.
[2023-08-28] MEDS: cefTRIAXone 1 GM VIAL IM STA (18:13)
[2023-08-28] MEDS: LIDOCAINE 1% 2 ML VIAL MC ONE (18:14)
== END 2023-08-28 19:49 | disposition home or self-care (01) ==
LOC: EDUNIT# → ED 14:57
DX: T83.511A Infection and inflammatory reaction due to indwelling urethral catheter, initial encounter (principal); N39.0 Urinary tract infection, site not specified; R33.9 Retention of urine, unspecified; I10 Essential (primary) hypertension; Z79.82 Long term (current) use of aspirin; Z79.899 Other long term (current) drug therapy
CPT/HCPCS: 51702; 81001; 81003; 87077; 87086; 87181; 99284

== ENCOUNTER 2023-08-28 19:47 | Outpatient (CLI) | payer MEDICARE | END 2023-08-28 19:48 | LOC: EMS 19:47 | PROVIDERS: ATTEND Emergency Medicine | DX: Z51.5 Encounter for palliative care (principal); T83.021A Displacement of indwelling urethral catheter, initial encounter; C61 Malignant neoplasm of prostate | CPT/HCPCS: A0425; A0428 ==

== ENCOUNTER 2023-09-05 20:45 | Outpatient (CLI) | payer MEDICARE | END 2023-09-05 20:46 | disposition home or self-care (01) | LOC: EMS 20:45 | DX: R41.0 Disorientation, unspecified (principal) ==

== ENCOUNTER 2023-09-06 02:00 | Outpatient (CLI) | payer MEDICARE | END 2023-09-06 02:01 | disposition home or self-care (01) | LOC: EMS 02:00 | DX: S59.909A Unspecified injury of unspecified elbow, initial encounter (principal); W19.XXXA Unspecified fall, initial encounter; Y92.099 Unspecified place in other non-institutional residence as the place of occurrence of the external cause ==

== ENCOUNTER 2023-09-17 10:36 | Outpatient (CLI) | payer MEDICARE, OTHER | END 2023-09-17 23:59 | disposition hospice, home (50) | LOC: EMS 10:36 | PROVIDERS: ATTEND Family Medicine | DX: Z51.5 Encounter for palliative care (principal); R53.1 Weakness; C61 Malignant neoplasm of prostate | CPT/HCPCS: A0425; A0428 ==